=== PATIENT | male | born 1970 | race Caucasian/White ===

== ENCOUNTER 2019-09-07 09:28 | Emergency (ER) | payer SELFPAY ==
[2019-09-07 09:32] VITALS: BMI 29.5
[2019-09-07 09:42] VITALS: BP 120/84; PULSE 90; RESP 16; TEMP 36.4; O2SAT 94
--- NOTE | 2019-09-07 09:56 | US_ITS ---
WS: [id number] INDICATION: Left elbow swelling TECHNIQUE: Ultrasound soft tissue FINDINGS: Ultrasound left elbow. Small amount of edema is visualized along the dorsal elbow. Small am ount of fluid. No evidence of drainable abscess or fluid collection. US/US soft tissue/extremity 14187 IMPRESSION: Dorsal elbow edema can be seen with cellulitis, trauma, or olecrano n bursitis. Consider olecranon bursitis in the absence of infection or trauma. Recommend clinical correlation. No drainable fluid collections.
--- NOTE | 2019-09-07 09:56 | ED_ITS ---
HPI - Extremity Problem General: Chief complaint: General Medical Stated complaint: KNOT ON L ARM Time Seen by Provider: 09/07/19 09:30 Source: patient Mode of arrival: ambulatory Limitations: no limitations History of Present Illness: HPI Narrative: Patient is a 49-year-old male presents to ED today along with his for complaints of left elbow pain. According to patient approximately 2 weeks ago they began noticing the left arm was red and swollen. They sought evaluation at [facility] where they were diagnosed with cellulitis. He was given IV antibiotics while in the emergency department and discharged home on amoxicillin. Patient states all of the redness and swelling has subsided apart from swelling localized to the dorsal elbow. Patient is not running fevers or chills. MD Complaint: joint swelling and joint pain Onset (ago): day(s) Pain Consistency: constant Location: left, upper extremity and elbow Radiation: none Relieving factors: nothing Exacerbating factors: range of motion Associated symptoms: Reports no associated symptoms; Deny chest pain, fever(s) or rash Review of Systems Const: Denies: fever(s), chills, body aches or fatigue Card: Denies: chest pain Resp: Denies: dyspnea GI: Denies: abdominal pain, nausea or vomiting Musc: Reports: joint pain and joint swelling; Denies: neck pain, back pain, extremity pain, extremity swelling, joint redness, joint warmth or limited range of motion Skin/Breast: Denies: rash Neuro: Denies: headache(s), numbness in extremities, weakness in extremities or sensory changes [facility] ED PFSH: Social History (Updated 09/07/19 @ 09:44 by Selam Boudreaux RN) Smoking and tobacco status: current every day smoker cigarettes Packs smoked per day: 1 Physical Exam Const: COMMON NORMALS: no acute distress, average body habitus, patient oriented x3, no limitations, healthy appearing, alert and well nourished Resp: COMMON NORMALS: normal respiratory effort Cardio: COMMON NORMALS: regular rate and regular rhythm RATE: regular rate RHYTHM: regular rhythm Extremity: NARRATIVE EXTREMITY EXAM: pt appears to have an olecranon bursitis to L elbow; area is firm to touch; no erythema/warmth; joint appears stiff but he maintains full ROM; pain is not out of proportion to exam Neuro: COMMON NORMALS: patient oriented x3 SENSORIUM/ORIENTATION: Yes alert Skin: COMMON NORMALS: no rashes or lesions noted GENERAL SKIN EXAM: no rashes or lesions noted Course Vital Signs: Vital signs: Vital Signs Temperature 97.6 F 09/07/19 09:42 Pulse Rate 73 09/07/19 11:39 Respiratory Rate 18 09/07/19 11:39 Blood Pressure 135/82 09/07/19 11:39 Pulse Oximetry 98 09/07/19 11:39 MDM - Extremity (Nontraumatic) MDM Narrative: Medical decision making narrative: Patient clinically with an olecranon bursitis. Ultrasound does not show any drainable fluid collection. Patient maintains full range of motion of the elbow joint. He is not febrile or tachycardic. His labs reveal no leukocytosis and no elevation to his inflammatory markers. Slightly concerned regarding his history as he states he did have cellulitis from the elbow extending distally. This has improved after his course of amoxicillin but states he still has swelling to the elbow joint. There is absolutely no concern for septic arthritis at this point however septic bursitis is still a slight possibility. We will go ahead and place patient on Bactrim to cover for this and case management will work on getting him set up with orthopedic follow-up. Strict return to ED precautions given. Lab Data: Labs: Lab Results 09/07/19 09/07/19 09/07/19 Range/Units 10:10 10:10 10:10 WBC 6.0 (4.0-10.0) 10^3/ uL RBC 4.64 (4.1-5.3) 10^6/u L Hgb 14.6 (11.7-16.6) g/dL Hct 43.1 (42.0-52.0) % MCV 92.9 (80-94) fL MCH 31.5 (28.0-34.0) pg MCHC 33.9 (30.0-36.0) g/dL RDW 12.6 (12.1-15.1) % Plt Count 374 (130-400) 10^3/c mm MPV 8.6 (7.4-10.4) fL Neut % (Auto) 55.0 % Lymph % (Auto) 29.5 % [place] % (Auto) 7.7 % Eos % (Auto) 5.0 % Baso % (Auto) 1.3 % Neut # (Auto) 3.3 (1.8-7.7) 10^3/u L Lymph # (Auto) 1.8 (0.8-4.8) 10^3/u L [place] # (Auto) 0.5 (0.2-0.9) 10^3/u L Eos # (Auto) 0.3 (0.0-0.8) 10^3/u L Baso # (Auto) 0.1 (0.0-0.1) 10^3/u L Nucleated RBC % (a uto) 0 % Nucleated RBCs # 0.0 /100WBC ESR 9 (0-10) mm/hr Sodium 141 (136-145) mmol/L Potassium 3.9 (3.5-5.1) mmol/L Chloride 104 (98-107) mmol/L Carbon Dioxide 26 (22-29) mmol/L Anion Gap 14.9 (5-19) BUN 17 (6-20) mg/dL Creatinine 0.7 (0.7-1.2) mg/dL GFR Calculation 120.9 (90-130) mL/min Glucose 135 H (65-115) mg/dL Calculated Osmolal ity 290 (285-295) mOsm/k g Calcium 9.8 (8.5-10.5) mg/dL Total Bilirubin 0.2 (0.15-1.2) mg/dL AST 13 (0-40) U/L ALT 15 (0-41) U/L Alkaline Phosphata se 59 (40-130) IU/L C-Reactive Protein 2.9 (0.0-4.9) mg/L Total Protein 7.2 (6.6-8.7) g/dL Albumin 4.6 (3.5-5.2) g/dL Globulin 2.6 (1.3-4.6) g/dL Imaging Data^: L elbow XR: Radiologist's impression: [address] [address] XRay Report Signed Patient: Alden Velez Unit #: [id number] : 1970 Age/Sex: 49 / M ADM Date: 09/07/19 Loc: ER Room/Bed: Attending Dr: Ordering Provider/Ordering MD: Jackie Khalil Date of Service: 09/07/19 Procedure(s): XR elbow LT min 3V* 52962 Accession Number(s): [id number] Report Number: [id number] PROCEDURE INFORMATION: Exam: XR Left Elbow Exam date and time: 09/07/2019 10:11 AM Age: 49 years old Clinical indication: Patient HX: Recently treated for cellulitis left elbow. Some swelling still remains dorsal elbow; Additional info: Pain/swelling TECHNIQUE: Imaging protocol: XR Left elbow. Views: Frontal, lateral, and oblique views. COMPARISON: No relevant prior studies available. FINDINGS: Bones/joints: Possible olecranon bursal effusion. No destructive bony process identified. No acute bony abnormality identified. Soft tissues: Posterior soft tissue swelling. No radiopaque or radiolucent foreign body identified. XR/XR elbow LT min 3V* [id number] IMPRESSION: 1. Posterior soft tissue swelling. Cellulitis not excluded. Clinical correlation is recommended. 2. No radiopaque or radiolucent foreign body identified. 3. Possible olecranon bursal effusion. 4. No acute bony abnormality identified. Dictated By: Willy Smiley MD Signed By: Willy Smiley MD Signed Date/Time: 09/07/19 1055 DD/ 1054 US L elbow/extremity : Radiologist's impression: [address] [address] Ultrasound Report Signed Patient: Alden Velez Unit #: [id number] : 1970 Age/Sex: 49 / M ADM Date: 09/07/19 Loc: ER Room/Bed: Attending Dr: Ordering Provider/Ordering MD: Jackie Khalil Date of Service: 09/07/19 Procedure(s): US soft tissue/extremity 34066 Accession Number(s): [id number] Report Number: [id number] WS: [id number] INDICATION: Left elbow swelling TECHNIQUE: Ultrasound soft tissue FINDINGS: Ultrasound left elbow. Small amount of edema is visualized along the dorsal elbow. Small amount of fluid. No evidence of drainable abscess or fluid collection. US/US soft tissue/extremity 19305 IMPRESSION: Dorsal elbow edema can be seen with cellulitis, trauma, or olecranon bursitis. Consider olecranon bursitis in the absence of infection or trauma. Recommend clinical correlation. No drainable fluid collections. Dictated By: Reji Frias MD Signed By: Reji Frias MD Signed Date/Time: 09/07/191054 DD/ 51 Discharge Plan Discharge Patient Disposition: Home, Self-Care Clinical Impression: Olecranon bursitis of left elbow Condition: Stable Prescriptions: New Bactrim DS 800-160 mg tablet 1 tab PO BID 7 Days Qty: 14 RF: 0 No Action amoxicillin 250 mg Capsule 500 mg PO BID RF: 0 Discharge Orders: Discharge Order (Routine); Ordered 09/07/19 Ordered By: Jackie Khalil Referrals: Shyanne Mckeon DO [Primary Care Provider] - Activity Restrictions/Additional Instructions: As discussed case management should contact you to set you up with orthopedic follow-up. Please return to the emergency department for redness, swelling, increased pain, fevers to the elbow joint or arm. Coding Level of Care Code ED Light Armored Reconnaissance Officer for Chg Fwd Exam Expanded Problem Focused
[2019-09-07 10:17] LABS: Basophils # 0.1 10^3/uL (0.0-0.1); Basophils % 1.3 %; Eosinophils # 0.3 10^3/uL (0.0-0.8); Hematocrit 43.1 % (42.0-52.0); Hemoglobin 14.6 g/dL (11.7-16.6); Lymphocytes # 1.8 10^3/uL (0.8-4.8); Lymphocytes % 29.5 %; Mean Corpuscular HGB Conc 33.9 g/dL (30.0-36.0); Mean Corpuscular Hemoglobin 31.5 pg (28.0-34.0); Mean Corpuscular Volume 92.9 fL (80-94); Mean Platelet Volume 8.6 fL (7.4-10.4); Monocytes # 0.5 10^3/uL (0.2-0.9); Monocytes % 7.7 %; Neutrophils # 3.3 10^3/uL (1.8-7.7); Nucleated Red Blood Cells % 0 %; Platelet Count 374 10^3/cmm (130-400); Red Blood Count 4.64 10^6/uL (4.1-5.3); Red Cell Distribution Width 12.6 % (12.1-15.1)
[2019-09-07 10:35] LABS: Alanine Aminotransferase 15 U/L (0-41); Albumin Level 4.6 g/dL (3.5-5.2); Alkaline Phosphatase 59 IU/L (40-130); Anion Gap 14.9 (5-19); Aspartate Amino Transferase 13 U/L (0-40); Blood Urea Nitrogen 17 mg/dL (6-20); Calcium 9.8 mg/dL (8.5-10.5); Carbon Dioxide 26 mmol/L (22-29); Chloride 104 mmol/L (98-107); Globulin 2.6 g/dL (1.3-4.6); Glomerular Filtration Rate 120.9 mL/min (90-130); Glucose 135 mg/dL (65-115); Osmolality Calculated 290 mOsm/kg (285-295); Potassium 3.9 mmol/L (3.5-5.1); Sodium 141 mmol/L (136-145); Total Bilirubin 0.2 mg/dL (0.15-1.2); Total Protein 7.2 g/dL (6.6-8.7)
--- NOTE | 2019-09-07 11:04 | PC.NURSE ---
pt. stated he wanted somthing to drink because he needed to drink, I explained i could not do that right now, he stated he was going to leave. I informed the DrTameka and the Dr. ordered to let him leave if he wants to leave the Pt. singed the AMA form and leafed the ER
[2019-09-07 11:09] LABS: C Reactive Protein 2.9 mg/L (0.0-4.9)
[2019-09-07 11:24] LABS: Erythrocyte Sedimentation Rate 9 mm/hr (0-10)
[2019-09-07] MEDS: ketorolac 60 mg/2 mL INJ IM (11:34)
[2019-09-07 11:39] VITALS: BP 135/82; PULSE 73; RESP 18; O2SAT 98
--- NOTE | 2019-09-07 12:24 | DCPLANNER ---
manager commodities was asked to schedule a follow up appointment for patient with ortho. manager commodities called the ortho clinic, spoke with Vane, gave clinic patients information. manager commodities was told that patients information would be printed and reviewed. Clinic will call case reviewer and patient with appointment information.
--- NOTE | 2019-09-12 09:20 | DCPLANNER ---
Patient has a follow up appointment scheduled for Thursday, September 12, 2019 at 1:[address] Boateng. Clinic will call patient with appointment information.
--- NOTE | 2019-09-21 15:03 | DCPLANNER ---
Patient did not attend appointment scheduled for 09.12.19 with ortho.
== END 2019-09-07 11:40 | disposition home or self-care (01) ==
PROVIDERS: Emergency Provider Physician Assistant; Family Provider Family Medicine; PCP Family Medicine
DX: M70.22 Olecranon bursitis, left elbow (principal); F17.210 Nicotine dependence, cigarettes, uncomplicated
CPT/HCPCS: 12345; 36415; 73080; 76882; 80053; 85025; 85651; 86140; 96372; 99281; 99283; J1885

== ENCOUNTER 2020-02-28 02:19 | Emergency (ER) | payer SELFPAY ==
[2020-02-28 02:24] VITALS: BP 146/106; PULSE 90; RESP 18; TEMP 36.4; O2SAT 98; BMI 29.5
--- NOTE | 2020-02-28 02:26 | XRR_ITS ---
PROCEDURE INFORMATION: Exam: XR Chest, 1 View Exam date and time: 02/28/2020 2:26 AM Age: 49 years old Clinical indication: Shortness of breath; Left-sided chest pain; Additional info: SOB TECHNIQUE: Imaging protocol: XR of the chest Views: Frontal portable upright view of the chest. COMPARISON: No relevant prior studies available. FINDINGS: Lungs: The lungs are clear bilaterally. The pulmonary vasculature is normal. Pleural space: No pleural effusion. No pneumothorax. Heart/Mediastinum: The heart is normal in size and contour. Bones/joints: Mild thoracic spine vertebral body marginal osteophytes. Healed left clavicular fracture. Healed left rib fractures. Posterior left humeral head articular marginal osteophyte. XR/XR chest 1V portable [id number] IMPRESSION: No acute cardiopulmonary abnormality identified.
--- NOTE | 2020-02-28 02:26 | ECG_ITS ---
[facility] Test Date: 2020-02-28 Pat Name: Alden Velez Department: Room: Gender: Male Sample Cutter: : 1970 Requested By: Latoya Long Order Number: [id number] Khurram MD: Triston Luz M.D. Measurements Intervals [place] Rate: 95 P: 79 [place]: 173 QRS: 49 QRSD: 97 T: 74 QT: 345 QTc: 434 Interpretive Statements SINUS RHYTHM INCOMPLETE RIGHT BUNDLE BRANCH BLOCK [90+ ms QRS DURATION, TERMINAL R IN V1/V2, 40+ ms S IN I/aVL/V4/V5/V6] No previous ECG available for comparison Electronically Signed On 02-28-2020 21:24:24 BIOLOGY TUTOR by Triston Luz M.D. [id number]
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
[2020-02-28 02:41] LABS: Basophils # 0.1 10^3/uL (0.0-0.1); Basophils % 1.4 %; Eosinophils # 0.3 10^3/uL (0.0-0.8); Eosinophils % 3.8 %; Hematocrit 45.5 % (42.0-52.0); Hemoglobin 15.3 g/dL (11.7-16.6); Lymphocytes # 2.2 10^3/uL (0.8-4.8); Mean Corpuscular HGB Conc 33.6 g/dL (30.0-36.0); Mean Corpuscular Hemoglobin 31.2 pg (28.0-34.0); Mean Corpuscular Volume 92.9 fL (80-94); Monocytes # 0.8 10^3/uL (0.2-0.9); Monocytes % 9.6 %; Neutrophils # 4.38 10^3/uL (1.8-7.7); Neutrophils % 54.8 %; Nucleated Red Blood Cells % 0 %; Platelet Count 311 10^3/cmm (130-400); Red Cell Distribution Width 11.9 % (12.1-15.1)
[2020-02-28] MEDS: morphine 4 mg/mL SDV 1 mL IVP (02:43)
[2020-02-28 03:09] LABS: D Dimer 0.28 ug/mIFEU (0-0.59)
[2020-02-28 03:11] LABS: Alanine Aminotransferase 21 U/L (0-41); Albumin Level 4.4 g/dL (3.5-5.2); Alkaline Phosphatase 75 IU/L (40-130); Anion Gap 14.4 (5-19); Aspartate Amino Transferase 15 U/L (0-40); Blood Urea Nitrogen 14 mg/dL (6-20); Calcium 9.2 mg/dL (8.5-10.5); Carbon Dioxide 27 mmol/L (22-29); Chloride 104 mmol/L (98-107); Globulin 2.3 g/dL (1.3-4.6); Glomerular Filtration Rate 59.2 mL/min (90-130); Glucose 134 mg/dL (65-115); Osmolality Calculated 294 mOsm/kg (285-295); Potassium 4.4 mmol/L (3.5-5.1); Sodium 141 mmol/L (136-145); Total Bilirubin 0.2 mg/dL (0.15-1.2); Total Protein 6.7 g/dL (6.6-8.7)
[2020-02-28 03:13] LABS: Troponin(5th) Baseline 7 ng/L (0-15)
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
[2020-02-28] MEDS: metoclopramide 5 mg/mL SDV 2 mL 10 MG IVP (04:38)
[2020-02-28] MEDS: diphenhydrAMINE 50 mg/mL SDV 1mL IVP (04:38)
[2020-02-28 04:53] LABS: Troponin 5 2HR 6.98 ng/L (0-15)
[2020-02-28 04:55] LABS: Troponin 5 2HR Delta -0.02 ABS# (0-10)
[2020-02-28 04:57] VITALS: BP 145/76; PULSE 89; RESP 16; O2SAT 99
[2020-02-28 05:28] VITALS: BP 132/79; PULSE 89; RESP 16; O2SAT 98
== END 2020-02-28 05:29 | disposition home or self-care (01) ==
PROVIDERS: Emergency Provider Emergency Medicine; PCP Family Medicine
DX: R07.89 Other chest pain (principal); R51.9 Headache, unspecified; F17.210 Nicotine dependence, cigarettes, uncomplicated
CPT/HCPCS: 12345; 70450; 71045; 80053; 84484; 85025; 85378; 93005; 96374; 96375; 99282; 99284; J1200; J2270; J2765

== ENCOUNTER 2021-10-11 07:24 | Emergency (ER) | payer SELFPAY ==
--- NOTE | 2021-10-11 07:33 | W.ED.SKABFB ---
HPI - Skin/Abscess/Foreign Bdy General: Chief complaint: Skin/Abscess/Foreign Body Stated complaint: Open wounds upper extrimidies Time Seen by Provider: 10/11/21 07:25 Source: patient Mode of arrival: ambulatory Limitations: no limitations History of Present Illness: Patient is a 51-year-old male who presents to ED today along with his significant other for concerns of possible staph/MRSA lesions. Patient states approximately 2 weeks ago he was seen at [facility] for concerns of an abscess to his right thumb. Patient does have pictures of this on his phone and he did have what appeared to be an abscess to the palmar pad of his right thumb. He states this was drained but no culture was obtained. He was placed on 10 days of doxycycline and states the abscess healed. Patient and significant other states since then other areas have began popping up and are concerned about further staph lesions. Patient now complaining of lesions to his L elbow, toe, right middle finger, and palm of hand. MD complaint: abscess/boil and lesion Onset (ago): day(s) Tetanus up to date: yes Location: generalized Context: none Associated symptoms: Reports no associated symptoms; Deny chills or fever(s) Review of Systems Const: Denies: fever(s), chills, body aches, fatigue or malaise Card: Denies: chest pain Resp: Denies: dyspnea GI: Denies: abdominal pain Musc: Reports: extremity pain and extremity swelling; Denies: neck pain, back pain, joint pain, joint swelling or joint redness Skin/Breast: Reports: new lesions Neuro: Denies: headache(s), numbness in extremities, weakness in extremities or sensory changes FOR[facility]LY [facility], [facility] ED PFSH: Social History Smoking and tobacco status: current every day smoker cigarettes Packs smoked per day: 1 Physical Exam Const: COMMON NORMALS: no acute distress, patient oriented x3, no limitations and alert GENERAL APPEARANCE: cooperative ORIENTATION/CONSCIOUSNESS: Yes awake, Yes oriented to person, Yes oriented to place and Yes oriented to time OTHER: noted to by hypertensive-he states he has known hypertension and BP today is actually low for me HENMT: COMMON NORMALS: normocephalic and atraumatic HEAD & SCALP: normal to inspection, normocephalic and atraumatic Resp: COMMON NORMALS: normal respiratory effort and clear to auscultation bilaterally AUSCULTATION: clear to auscultation bilaterally Cardio: COMMON NORMALS: regular rhythm RATE: tachycardic RHYTHM: regular rhythm Extremity: COMMON NORMALS: capillary refill normal GENERAL: Yes normal exam except as noted RIGHT UPPER EXTREMITY: Yes hand & digits LEFT UPPER EXTREMITY: Yes elbow joint RIGHT LOWER EXTREMITY: Yes foot & digits OTHER: pt has callus like formation to R palmar pad of his thumb from I&D via needle puncture that was performed about 2 weeks ago; there is no redness or swelling to the digit and no residual fluctuance or drainage; area is still slightly tender to touch pt has a unroofed blister like lesion to the medial aspect of his R middle finger that the significant other states popped and drained on its own ; no redness/swelling/active infection he has a callus like nodule to the R mid-palmar pad of hand without redness; minimal swelling, area is tender to touch; no puncture like wound and he denies any puncture injuries *R hand/digits showing no uniform swelling, severe pain with flexion/extension, localized flexor sheath tenderness or other concerns for infectious tenosynovitis at this time pt has similar like unroofed blister (about 1 inch) like lesion to his L elbow with a small area central clearing (1mm) with scant yellow drainage on his bandage; there is no active drainage from lesion; there is no surrounding swelling, cellulitis, or drainable abscess he has a well healed ( old abscess ) to the top of one of his R toes Neuro: HASMUKH COMA SCALE: document GCS findings [place] coma scale eye opening: Spontaneous Hasmukh coma scale verbal response: Orientated Hasmukh coma scale motor response: Obey commands [place] coma scale total score: 15 COMMON NORMALS: patient oriented x3, moves all extremities, no focal motor deficits, no sensory deficits noted and gait normal SENSORIUM/ORIENTATION: Yes alert, Yes oriented to person, Yes oriented to place and Yes oriented to time Skin: NARRATIVE SKIN EXAM: see extremity assessments above Course Vital Signs: Vital signs: Vital Signs Temperature 98.3 F 10/11/21 07:38 Pulse Rate 110 H 10/11/21 08:16 Respiratory Rate 18 10/11/21 07:38 Blood Pressure 164/120 10/11/21 08:16 Pulse Oximetry 98 10/11/21 08:16 Oxygen Delivery Md thod 10/11/21 07:38 MDM - Skin/Abscess/Foreign Bdy Medicial Decision Making Patient here with multiple skin lesions that he states popped up following needle aspiration/I&D of a R thumb abscess that he was told was staph although no culture was performed of fluid. There are no lesions today that require I&D. He state the abscess did heal after being placed on doxycycline so it is reasonable to believe that this was indeed staph and these newer lesions could have been spread from that. 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 He is hypertensive here but states this is chronic. We did discuss strict return to ED follow up in regards to lesions on the hand and elbow if they continue to enlarge or worsen in any way. He verbalized understanding of this. Discharge Plan Discharge Patient Disposition: Home Clinical Impression: Multiple wounds of skin Condition: Stable Prescriptions: New doxycycline monohydrate 100 mg capsule 100 mg PO Q12H 10 Days Qty: 20 0RF No Action Naprosyn 500 mg tablet 500 mg PO BID PRN (Reason: pain) Qty: 20 0RF amoxicillin 250 mg Capsule 500 mg PO BID Discharge Orders: Discharge ED (Routine); Ordered 10/11/21 Ordered By: Jackie Khalil Referrals: Shyanne Mckeon DO [Primary Care Provider] - Coding Level of Care Code ED Entry Level Mechanical Engineer for Chg Fwd Exam Detailed
[2021-10-11 07:38] VITALS: BP 159/112; PULSE 110; RESP 18; TEMP 36.8; O2SAT 99; BMI 32.5
[2021-10-11 08:16] VITALS: BP 164/120; PULSE 110; O2SAT 98
[2021-10-11 08:24] VITALS: BP 164/120; PULSE 107; O2SAT 97
== END 2021-10-11 08:24 | disposition home or self-care (01) ==
PROVIDERS: Emergency Provider Physician Assistant; PCP Family Medicine
DX: L98.8 Other specified disorders of the skin and subcutaneous tissue (principal); F17.210 Nicotine dependence, cigarettes, uncomplicated
CPT/HCPCS: 99283

== ENCOUNTER 2022-03-14 10:02 | Emergency (ER) | payer SELFPAY ==
--- NOTE | 2022-03-14 10:05 | ECG_ITS ---
[facility] Test Date: 2022-03-14 Pat Name: Alden Velez Department: Room: Gender: Male Kiln Tester: : 1970 Requested By: Magnus Mandel Order Number: [id number] Khurram MD: Triston Luz M.D. Measurements Intervals Maybeury Rate: 117 P: 84 AK: 166 QRS: 48 QRSD: 99 T: 87 QT: 349 QTc: 488 Interpretive Statements SINUS TACHYCARDIA RIGHT ATRIAL ENLARGEMENT [0.3mV P-WAVE] POSSIBLE LEFT ATRIAL ENLARGEMENT [-0.1mV P-WAVE IN V1/V2] INCOMPLETE RIGHT BUNDLE BRANCH BLOCK [90+ ms QRS DURATION, TERMINAL R IN V1/V2, 40+ ms S IN I/aVL/V4/V5/V6] Compared to ECG 02/28/2020 02:25:04 Atrial abnormality now present Sinus rhythm no longer present Electronically Signed On 03-15-2022 19:51:21 FURNACE FEEDER by Triston Luz M.D. [id number]
--- NOTE | 2022-03-14 10:05 | XRR_ITS ---
PROCEDURE INFORMATION: Exam: XR Chest Exam date and time: 03/14/2022 10:32 AM Age: 51 years old Clinical indication: Cough and dyspnea; Additional info: Dyspnea/cough TECHNIQUE: Imaging protocol: Radiologic exam of the chest. Views: 1 view. COMPARISON: CR XR chest 1V portable [id number] 02/28/2020 2:23 AM FINDINGS: Lungs: The lung parenchyma is clear. Pleural spaces: No pneumothorax. No pleural effusion. Heart/Mediastinum: The cardiomediastinal silhouette is within normal limits. Bones/joints: Unremarkable. XR/XR chest 1V portable [id number] IMPRESSION: No acute cardiopulmonary abnormality.
--- NOTE | 2022-03-14 10:16 | W.ED.ABDPA2 ---
HPI - Abdominal Pain General: Chief Complaint: Fever Stated Complaint: ABD PAIN; FEVER; COUGH Time Seen by Provider: 03/14/22 10:04 Source: patient Mode of arrival: ambulatory History of Present Illness: 51-year-old male presents emergency room complaining of abdominal pain with nausea and vomiting. Said symptoms for the last couple days denies any medication on hematemesis coffee-ground emesis no dysuria urgency or frequency or hematuria. He has been short of breath with that as well he has had a nonproductive cough and low-grade fever. For his discomfort to the periumbilical area. Has been having bowel movements regularly. MD elicited complaint: abdominal pain Onset (ago): day(s) Pain Consistency: constant Location: Periumbilical Severity: moderate Quality: cramping Radiation: none Exacerbating factors: nothing Relieving factors: nothing Associated Symptoms: Reports bloating, GI cramping, dyspepsia, fever(s), nausea, poor appetite and vomiting; Denies belching, change in bowel habits, change in stool character, chills, coffee ground emesis, constipation, diarrhea, dysuria, excessive flatus, heartburn, hematochezia, hematuria, hematemesis, fecal incontinence, loose stools, melena and syncope Review of Systems Const: Reports: fever(s); Denies: chills, fatigue or malaise ENMT: Denies: throat pain, ear or mastoid pain, nasal discharge or nasal congestion Card: Denies: chest pain, palpitations, irregular heart rhythm or syncope Resp: Denies: dyspnea, productive cough or non-productive cough GI: Reports: abdominal pain, nausea, vomiting, bloating and GI cramping; Denies: hematemesis, coffee ground emesis, heartburn, diarrhea, constipation, belching, excessive flatus, fecal incontinence, change in bowel habits, change in stool character, hematochezia or melena : Denies: flank pain, difficulty urinating, dysuria, urinary frequency, urinary urgency or hematuria Skin/Breast: Denies: rash or pruritus PFSH ED PFSH: Medical History (Updated 03/14/22 @ 12:07 by Magnus Melendez DO) Osteoarthritis of knees, bilateral Social History Smoking and tobacco status: current every day smoker cigarettes Packs smoked per day: 1 Physical Exam Const: GENERAL APPEARANCE: cooperative and comfortable ORIENTATION/CONSCIOUSNESS: Yes awake, Yes oriented to person, Yes oriented to place and Yes oriented to time HENMT: COMMON NORMALS: normocephalic, atraumatic and hearing grossly normal bilaterally HEAD & SCALP: normocephalic and atraumatic Resp: COMMON NORMALS: normal respiratory effort, No retractions, No use of accessory muscles and clear to auscultation bilaterally AUSCULTATION: clear to auscultation bilaterally Cardio: COMMON NORMALS: regular rate, regular rhythm and No murmurs present (Cardio) RATE: regular rate RHYTHM: regular rhythm GI: COMMON NORMALS: Soft to palpation and No hepatosplenomegaly present AUSCULTATION: Yes normoactive bowel sounds PALPATION: Yes Soft to palpation, No Tenderness to palpation present (GI), No Guarding due to palpation present (GI) and Yes No hepatosplenomegaly present Extremity: COMMON NORMALS: normal to inspection, capillary refill normal, no clubbing, cyanosis or edema, no calf tenderness and no pedal edema Neuro: SENSORIUM/ORIENTATION: Yes oriented to person, Yes oriented to place and Yes oriented to time Skin: COMMON NORMALS: no rashes or lesions noted GENERAL SKIN EXAM: no rashes or lesions noted Course Vital Signs: Vital signs: Vital Signs Temperature 98.6 F 03/14/22 10:23 Pulse Rate 106 H 03/14/22 12:31 Respiratory Rate 18 03/14/22 12:31 Blood Pressure 133/88 03/14/22 12:31 Pulse Oximetry 93 03/14/22 12:31 Oxygen Delivery Me thod 03/14/22 11:26 MDM - Abdominal Pain Medical Decision Making Patient actually developed pretty significant cough while he was here. No lymphocytosis. His was in the room when I went discussed the results of the lab work with the patient and she noted that they had been exposed to somebody had influenza A. His vital signs are stable he is mildly tachycardic and is coughing. Suspect he will indeed have influenza A promethazine to use as needed was not swabbed him discharged home we will contact with results when they become available. Medical Records I reviewed the patient's medical records. Lab Data I reviewed the patient's lab results. 03/14/22 10:20 03/14/22 10:20 Labs/Radiology: Radiology Impressions Chest X-Ray 03/14/22 10:05 IMPRESSION: No acute cardiopulmonary abnormality. Abdomen/Pelvis CT 03/14/22 10:47 IMPRESSION: No acute abdominopelvic abnormality identified. COMMENTS: Consistent with the [place] [employer]'s Incidental Findings Committee white paper (J Am Ambrocio Radiol 2018): Any incidental renal lesion less than 1 cm or classified as too small to characterize, or any incidental cystic renal lesion characterized as simple-appearing, is likely benign. No follow-up imaging is recommended for these lesions per consensus recommendations based on imaging criteria. Laboratory Results WBC 6.6 10^3/uL (4.0-10.0) 03/14/22 10:20 RBC 4.59 10^6/uL (4.1-5.3) 03/14/22 10:20 Hgb 13.9 g/dL (11.7-16.6) 03/14/22 10:20 Hct 41.2 % (42.0-52.0) L 03/14/22 10:20 MCV 89.8 fl (80-94) 03/14/22 10:20 MCH 30.3 pg (28.0-34.0) 03/14/22 10:20 MCHC 33.7 g/dL (30.0-36.0) 03/14/22 10:20 RDW 11.9 % (12.1-15.1) L 03/14/22 10:20 Plt Count 212 10^3/cmm (130-400) 03/14/22 10:20 MPV 9.1 fL (7.4-10.4) 03/14/22 10:20 Neut % (Auto) 60.8 % 03/14/22 10:20 Lymph % (Auto) 25.5 % 03/14/22 10:20 Lamb % (Auto) 12.9 % 03/14/22 10:20 Eos % (Auto) 0.2 % 03/14/22 10:20 Baso % (Auto) 0.3 % 03/14/22 10:20 Neut # (Auto) 4.00 10^3/uL (1.8-7.7) 03/14/22 10:20 Lymph # (Auto) 1.7 10^3/uL (0.8-4.8) 03/14/22 10:20 Lamb # (Auto) 0.9 10^3/uL (0.2-0.9) 03/14/22 10:20 Eos # (Auto) 0.0 10^3/uL (0.0-0.8) 03/14/22 10:20 Baso # (Auto) 0.0 10^3/uL (0.0-0.1) 03/14/22 10:20 Nucleated RBC % (auto) 0 % 03/14/22 10:20 Nucleated RBCs # 0.0 /100WBC 03/14/22 10:20 Sodium 133 mmol/L (136-145) L 03/14/22 10:20 Potassium 3.2 mmol/L (3.5-5.1) L 03/14/22 10:20 Chloride 95 mmol/L (98-107) L 03/14/22 10:20 Carbon Dioxide 27 mmol/L (22-29) 03/14/22 10:20 Anion Gap 14.2 (5-19) 03/14/22 10:20 BUN 8 mg/dL (6-20) 03/14/22 10:20 Creatinine 0.7 mg/dL (0.7-1.2) 03/14/22 10:20 GFR Calculation 119.9 mL/min (90-130) 03/14/22 10:20 Glucose 135 mg/dL (65-115) H 03/14/22 10:20 Calculated Osmolality 276 mOsm/kg (285-295) L 03/14/22 10:20 Calcium 9.2 mg/dL (8.5-10.5) 03/14/22 10:20 Total Bilirubin 0.3 mg/dL (0.15-1.2) 03/14/22 10:20 AST 25 U/L (0-40) 03/14/22 10:20 ALT 24 U/L (0-41) 03/14/22 10:20 Alkaline Phosphatase 67 U/L (40-130) 03/14/22 10:20 Total Protein 7.2 g/dL (6.6-8.7) 03/14/22 10:20 Albumin 4.0 g/dL (3.5-5.2) 03/14/22 10:20 Globulin 3.2 g/dL (1.3-4.6) 03/14/22 10:20 Lipase 31 U/L (13-60) 03/14/22 10:20 Urine Color Yellow (Yellow) 03/14/22 10:53 Urine Appearance Clear (CLEAR) 03/14/22 10:53 Urine pH 7 (5-7) 03/14/22 10:53 Ur Specific Fortine 1.015 (1.005-1.030) 03/14/22 10:53 Urine Protein Neg (Negative) 03/14/22 10:53 Urine Glucose (UA) Norm (Normal) 03/14/22 10:53 Urine Ketones Negative (Negative) 03/14/22 10:53 Urine Blood 3+ (Negative) H 03/14/22 10:53 Urine Nitrate Negative (Negative) 03/14/22 10:53 Urine Bilirubin Neg (Negative) 03/14/22 10:53 Urine Urobilinogen Norm mg/dL (Negative) 03/14/22 10:53 Ur Leukocyte Esterase Negative (Negative) 03/14/22 10:53 Urine RBC 5-10 /hpf (0-2) H 03/14/22 10:53 Urine WBC None /hpf (0-5) 03/14/22 10:53 Ur Squamous Epith Cells None /hpf (0-5) 03/14/22 10:53 Amorphous Sediment Not Reportable 03/14/22 10:53 Urine Bacteria Trace /hpf (NONE) 03/14/22 10:53 Urine Mucus Trace /hpf 03/14/22 10:53 Influenza Type A Ag negative (Negative) 03/14/22 12:12 Influenza Type B Ag negative (Negative) 03/14/22 12:12 Discharge Plan Discharge Patient Disposition: Home Clinical Impression: Viral URI with cough Condition: Stable Prescriptions: New promethazine 25 mg tablet 25 mg PO Q6H PRN (Reason: nausea and vomiting) Qty: 20 0RF Discharge Orders: Discharge ED (Routine); Ordered 03/14/22 Ordered By: Magnus Melendez Referrals: Shyanne Mckeon DO [Physician] - Discharge Diet: Clear Liquid Discharge Activity: Increase activity as tolerated Patient Instructions: Abdominal Pain (ED), Opioid Safety, Pain Management Activity Restrictions/Additional Instructions: You were seen today for abdominal pain generalized malaise and cough. Laboratory tests and CT of your abdomen were unremarkable with the exception of the few blood cells red blood cells in your urine however there was no sign of kidney stone. Your urine is being cultured since you denied any pain with urination, urine will be cultured. Flu and COVID swabs were done prior to your discharge and we will contact you with results when they are available. You can use promethazine as needed for nausea or vomiting. Recommend clear liquid diet for the next 1 to 2 days. Suspect he may have influenza A since she reported you were exposed to someone with influenza. Coding Level of Care Code ED Senior Cytogenetics Laboratory Director for Ernieg Fwd Exam Detailed
[2022-03-14 10:23] VITALS: BP 123/93; PULSE 102; RESP 20; TEMP 37; O2SAT 96
[2022-03-14 10:34] LABS: Basophils % 0.3 %; Eosinophils % 0.2 %; Hematocrit 41.2 % (42.0-52.0); Hemoglobin 13.9 g/dL (11.7-16.6); Lymphocytes # 1.7 10^3/uL (0.8-4.8); Lymphocytes % 25.5 %; Mean Corpuscular HGB Conc 33.7 g/dL (30.0-36.0); Mean Corpuscular Hemoglobin 30.3 pg (28.0-34.0); Mean Corpuscular Volume 89.8 fl (80-94); Mean Platelet Volume 9.1 fL (7.4-10.4); Monocytes # 0.9 10^3/uL (0.2-0.9); Monocytes % 12.9 %; Neutrophils % 60.8 %; Nucleated Red Blood Cells % 0 %; Platelet Count 212 10^3/cmm (130-400); Red Blood Count 4.59 10^6/uL (4.1-5.3); Red Cell Distribution Width 11.9 % (12.1-15.1); White Blood Count 6.6 10^3/uL (4.0-10.0)
[2022-03-14] MEDS: ondansetron 2 mg/ML SDV 2 mL 4 MG IVP (10:37)
[2022-03-14] MEDS: sodium chloride 0.9% 1,000 ML 999 ML IV (10:38)
--- NOTE | 2022-03-14 10:47 | CTR_ITS ---
PROCEDURE INFORMATION: Exam: CT Abdomen And Pelvis With Contrast Exam date and time: 03/14/2022 11:13 AM Age: 51 years old Clinical indication: Abdominal pain; Generalized; Prior surgery; Surgery type: Gb; Additional info: Abd pain TECHNIQUE: Imaging protocol: Computed tomography of the abdomen and pelvis with contrast. Radiation optimization: All CT scans at this facility use at least one of these dose optimization techniques: automated exposure control; mA and/or kV adjustment per patient size (includes targeted exams where dose is matched to clinical indication); or iterative reconstruction. Contrast material: OMNI 350; Contrast volume: 100 ml; Contrast route: INTRAVENOUS (IV); COMPARISON: CR (CHEST, ) 03/14/2022 10:32 AM RADIATION DOSE METRICS: Total DLP (mGy-cm): 860.63 FINDINGS: Liver: Area of hypoattenuation along the anterior margin of the liver adjacent to the falciform ligament consistent with focal fatty infiltration. The liver is normal in size and contour. Gallbladder and bile ducts: The gallbladder is surgically absent. Pancreas: The pancreas appears normal. Spleen: The spleen appears normal. Adrenal glands: The adrenals appear normal. Kidneys and ureters: Simple appearing, fluid density cysts noted in the kidneys bilaterally. The kidneys enhance symmetrically and empty into non-dilated ureters. Stomach and bowel: The stomach is unremarkable. The small bowel loops are not abnormally dilated. The large bowel loops are not abnormally dilated. Appendix: The appendix appears normal. Intraperitoneal space: No ascites or significant fluid collection. Vasculature: The aorta is nonaneurysmal. The IVC appears normal. Lymph nodes: There are no enlarged lymph nodes. Urinary bladder: The bladder is distended and demonstrates no focal contour abnormality. Reproductive: Unremarkable as visualized. Bones/joints: Bilateral pars defects at L5. Mild grade 1 anterolisthesis of L5 on S1 by approximately 4 mm. Soft tissues: Unremarkable. CT/CT abdomen pelvis w con* [id number] IMPRESSION: No acute abdominopelvic abnormality identified. COMMENTS: Consistent with the [place] [employer]'s Incidental Findings Committee white paper (J Am Ambrocio Radiol 2018): Any incidental renal lesion less than 1 cm or classified as too small to characterize, or any incidental cystic renal lesion characterized as simple-appearing, is likely benign. No follow-up imaging is recommended for these lesions per consensus recommendations based on imaging criteria.
[2022-03-14 11:07] LABS: Alanine Aminotransferase 24 U/L (0-41); Alkaline Phosphatase 67 U/L (40-130); Anion Gap 14.2 (5-19); Aspartate Amino Transferase 25 U/L (0-40); Blood Urea Nitrogen 8 mg/dL (6-20); Calcium 9.2 mg/dL (8.5-10.5); Carbon Dioxide 27 mmol/L (22-29); Chloride 95 mmol/L (98-107); Globulin 3.2 g/dL (1.3-4.6); Glomerular Filtration Rate 119.9 mL/min (90-130); Glucose 135 mg/dL (65-115); Lipase 31 U/L (13-60); Osmolality Calculated 276 mOsm/kg (285-295); Potassium 3.2 mmol/L (3.5-5.1); Sodium 133 mmol/L (136-145); Total Bilirubin 0.3 mg/dL (0.15-1.2); Total Protein 7.2 g/dL (6.6-8.7)
[2022-03-14 11:20] LABS: Add Urine Microscopic? YES; Bilirubin Urine Neg (Negative); Blood Urine 3+ (Negative); Glucose Urine UA Norm (Normal); Ketones Urine Negative (Negative); Leukocyte Esterase Urine Negative (Negative); Nitrate Urine Negative (Negative); Protein Urine Neg (Negative); Specific Gravity, Urine 1.015 (1.005-1.030); Urine Appearance Clear (CLEAR); Urine Color Yellow (Yellow); Urobilinogen Urine Norm (Negative); pH Urine 7 (5-7)
[2022-03-14 11:22] LABS: Bacteria Urine TRACE /hpf; Mucus Urine TRACE /hpf
[2022-03-14 11:23] LABS: Add Urine Culture? No
[2022-03-14 11:26] VITALS: BP 133/71; PULSE 57; RESP 18; O2SAT 99
[2022-03-14] MEDS: iohexol 350 mg/mL 500 mL Btl (per mL) IV (11:27)
--- NOTE | 2022-03-14 11:46 | PC.PHAR ---
pts family states the pt is suppose to be taking lisinopril 20mg daily states pt stop taking about 4 months ago-states the pt is not taking any rx or otc medications
[2022-03-14 12:31] VITALS: BP 133/88; PULSE 106; RESP 18; O2SAT 93
[2022-03-14 13:11] LABS: Influenza A by IFA negative (Negative); Influenza B by IFA negative (Negative)
[2022-03-14 14:45] LABS: Adenovirus Not Detected (NOT DETECT); Chlamydia Pneumoniae Not Detected (NOT DETECT); Coronavirus 229E,HKU1,NL63,OC4 Not Detected (NOT DETECT); Human Metapneumovirus Not Detected (NOT DETECT); Human Rhinovirus/Enterovirus Not Detected (NOT DETECT); Influenza A Detected (NOT DETECT); Influenza A H1 Not Detected (NOT DETECT); Influenza A H1-2009 Detected (NOT DETECT); Influenza A H3 Not Detected (NOT DETECT); Influenza B Not Detected (NOT DETECT); Mycoplasma Pneumoniae Not Detected (NOT DETECT); Parainfluenza Virus Type 1 Not Detected (NOT DETECT); Parainfluenza Virus Type 2 Not Detected (NOT DETECT); Parainfluenza Virus Type 3 Not Detected (NOT DETECT); Parainfluenza Virus Type 4 Not Detected (NOT DETECT); Respiratory Syncytial Virus A Not Detected (NOT DETECT); Respiratory Syncytial Virus B Not Detected (NOT DETECT); SARS-COV-2 Not Detected (NOT DETECT)
[2022-03-14 14:47] LABS: Influenza A Detected (NOT DETECT); Influenza A H1 Not Detected (NOT DETECT); Influenza A H1-2009 Detected (NOT DETECT); Influenza A H3 Not Detected (NOT DETECT); Influenza B Not Detected (NOT DETECT); Results from Genmark
== END 2022-03-14 12:33 | disposition home or self-care (01) ==
PROVIDERS: Emergency Provider Family Medicine
DX: J06.9 Acute upper respiratory infection, unspecified (principal); F17.210 Nicotine dependence, cigarettes, uncomplicated; Z20.822 Contact with and (suspected) exposure to COVID-19
CPT/HCPCS: 71045; 74177; 80053; 81001; 83690; 85025; 87631; 87635; 87804; 93005; 96374; 99285; J2405; J7030; Q9967

== ENCOUNTER 2023-10-23 20:56 | Emergency (ER) | payer BC, MEDICAID, SELFPAY ==
[2023-10-23 21:05] VITALS: BP 157/91; PULSE 108; RESP 17; TEMP 36.7; O2SAT 96; BMI 30.2
[2023-10-24 00:02] VITALS: BP 150/91; PULSE 104; RESP 18; O2SAT 96
--- NOTE | 2023-10-24 00:04 | CTR_ITS ---
PROCEDURE INFORMATION: Exam: CT Abdomen And Pelvis With Contrast Exam date and time: 10/24/2023 12:40 AM Age: 53 years old Clinical indication: Abdominal pain; Prior surgery; Surgery date: 6+ months; Surgery type: Gb; Patient HX: C/O left groin pain TECHNIQUE: Imaging protocol: Computed tomography of the abdomen and pelvis with contrast. Radiation optimization: All CT scans at this facility use at least one of these dose optimization techniques: automated exposure control; mA and/or kV adjustment per patient size (includes targeted exams where dose is matched to clinical indication); or iterative reconstruction. Contrast material: OMNI 350; Contrast volume: 100 ml; Contrast route: INTRAVENOUS (IV); COMPARISON: CT abdomen pelvis w con* [id number] 03/14/2022 11:13 AM RADIATION DOSE METRICS: Total DLP (mGy-cm): 750.43 FINDINGS: Liver: Normal. No mass. Gallbladder and biliary ducts: The gallbladder is absent. Pancreas: Normal. No ductal dilation. Spleen: Normal. No splenomegaly. Adrenal glands: Normal. No mass. Kidneys and ureters: There are multiple hypodense lesions throughout both kidneys which are incompletely assessed on this examination and while these may represent a combination of simple, proteinaceous and hemorrhagic cysts, a three-phase renal CT or renal MRI may be of benefit to more fully characterize these lesions. Stomach and bowel: Unremarkable. No obstruction. No mucosal thickening. Appendix: No evidence of appendicitis. Intraperitoneal space: Unremarkable. No free air. No significant fluid collection. Vasculature: Unremarkable. No abdominal aortic aneurysm. Lymph nodes: Unremarkable. No enlarged lymph nodes. Urinary bladder: Unremarkable as visualized. Reproductive: Unremarkable as visualized. Bones/joints: Bilateral pars defects at L5 with no listhesis. Soft tissues: Unremarkable. CT/CT abdomen pelvis w con* [id number] IMPRESSION: 1. No bowel obstruction or inflammatory process associated with the bowel. 2. No free air or significant free fluid in the abdomen or pelvis. 3. No evidence of appendicitis. 4. There are multiple hypodense lesions throughout both kidneys which are incompletely assessed on this examination and while these may represent a combination of simple, proteinaceous and hemorrhagic cysts, a three-phase renal CT or renal MRI may be of benefit to more fully characterize these lesions. COMMENTS: Consistent with the [employer] [employer]'s Incidental Findings Committee white paper (J Am Ambrocio Radiol 2018): Any incidental renal lesion less than 1 cm or classified as too small to characterize, or any incidental cystic renal lesion characterized as simple-appearing, is likely benign. No follow-up imaging is recommended for these lesions per consensus recommendations based on imaging criteria.
--- NOTE | 2023-10-24 00:17 | ED_ITS ---
HPI - Abdominal Pain 2 General: Chief Complaint: Abdominal Pain Stated Complaint: hernia L groin pain Time Seen by Provider: 10/23/23 23:33 History of Present Illness: 53-year-old male. He states that he has a history of left inguinal hernia, with pain for a month or so. It became acutely worse last night after a walk. He has been nauseated. No vomiting. No fever. Pain is in the left inguinal region. He radiates to his back. No prior surgeries. Related Data Previous Rx's Medication Instructions Recorded promethazine 25 mg tablet 25 mg PO Q6H PRN nausea and 03/14/22 vomiting #20 tabs tamsulosin 0.4 mg capsule (Flomax) 0.4 mg PO DAILY #30 caps 10/24/23 Allergies Allergy/AdvReac Type Severity Reaction Status Date / Time adhesive tape Allergy ALGY-Bliste Verified 10/23/23 21:08 r [facility] 2 PFSH: Medical History Osteoarthritis of knees, bilateral Social History Smoking and tobacco/nicotine status: current every day tobacco/nicotine user cigarettes Packs smoked per day: 1 Physical Exam 2 Const: COMMON NORMALS: no acute distress GENERAL APPEARANCE: cooperative; not ill appearing and not frail appearing HENMT: COMMON NORMALS: normocephalic, atraumatic and Normal external nose present HEAD & SCALP: normocephalic and atraumatic FACE & SINUS: normal facial exam and face symmetric NOSE: Normal external nose present Eye: COMMON NORMALS: Equal, round and reactive pupils present and EOMs intact bilaterally PUPIL: Yes Equal, round and reactive pupils present Neck/C-Spine: GENERAL: Yes trachea midline Chest: CHEST: Yes Symmetrical chest wall rise Resp: COMMON NORMALS: normal respiratory effort, No retractions, No use of accessory muscles and clear to auscultation bilaterally AUSCULTATION: clear to auscultation bilaterally Cardio: COMMON NORMALS: regular rate and regular rhythm RATE: regular rate RHYTHM: regular rhythm GI: COMMON NORMALS: Normal to inspection, nondistended, normoactive bowel sounds present : COMMON NORMALS: Yes no CVA tenderness BLADDER/KIDNEY EXAM: Yes no CVA tenderness MALE GROIN/PERINEUM EXAM: Yes hernia (No palpable hernia, there is tenderness to the left inguinal ring), No inguinal lymphadenopathy and No Genital lesions present PENIS: No Genital lesions present SCROTUM: Yes testes descended bilaterally, Yes Scrotal tenderness present, Yes scrotal swelling (Mild) Scrotal swelling laterality: left and No scrotal mass Back/Pelvis: COMMON NORMALS: no CVA tenderness Extremity: COMMON NORMALS: no pedal edema Neuro: HASMUKH COMA SCALE: document GCS findings Hasmukh coma scale eye opening: Spontaneous Hasmukh coma scale verbal response: Orientated Hasmukh coma scale motor response: Obey commands Hodgen coma scale total score: 15 S ENSORY EXAM: Yes extremities (intact) Psych: COMMON NORMALS: speech normal SPEECH: Yes normal speech Skin: COMMON NORMALS: no rashes or lesions noted GENERAL SKIN EXAM: no rashes or lesions noted Course 2 Vital Signs: Vital signs: Vital Signs Temperature 98.1 F 10/23/23 21:05 Pulse Rate 102 H 10/24/23 02:56 Respiratory Rate 18 10/24/23 02:56 Blood Pressure 156/106 10/24/23 02:56 Pulse Oximetry 97 10/24/23 02:56 Oxygen Delivery Me thod Room Air 10/24/23 02:02 MDM - Abdominal Pain Medical Decision Making Patient is hypertensive. Otherwise vitals are stable. CBC is normal. BMP is not remarkable. CRP is 3.7. Urinalysis shows negative leukocyte esterase. CT scan shows no bowel obstruction, no free air, no appendicitis, and most importantly no hernia. No palpable hernia on exam either. CT does show distended bladder. Patient only output 100 cc or so after CT scan. He was offered a catheter for bladder decompression, as this could be contributing to his symptoms. He declined. He will be placed on Flomax. As his symptoms are improved, he will be discharged. Amphetamine could be contributing to the bladder outlet obstruction to some degree. Lab Data 10/24/23 00:25 10/24/23 00:25 Labs/Radiology: Radiology Impressions Abdomen/Pelvis CT 10/24/23 00:04 IMPRESSION: 1. No bowel obstruction or inflammatory process associated with the bowel. 2. No free air or significant free fluid in the abdomen or pelvis. 3. No evidence of appendicitis. 4. There are multiple hypodense lesions throughout both kidneys which are incompletely assessed on this examination and while these may represent a combination of simple, proteinaceous and hemorrhagic cysts, a three-phase renal CT or renal MRI may be of benefit to more fully characterize these lesions. COMMENTS: Consistent with the [employer]'s Incidental Findings Committee white paper (J Am Ambrocio Radiol 2018): Any incidental renal lesion less than 1 cm or classified as too small to characterize, or any incidental cystic renal lesion characterized as simple-appearing, is likely benign. No follow-up imaging is recommended for these lesions per consensus recommendations based on imaging criteria. Laboratory Results WBC 8.79 10^3/uL (3.29-11.43) 10/24/23 00:25 RBC 4.43 10^6/uL (3.85-5.65) 10/24/23 00:25 Hgb 14.00 g/dL (11.27-16.99) 10/24/23 00:25 Hct 41.7 % (37-53) 10/24/23 00:25 MCV 94.1 fl (82-101) 10/24/23 00:25 MCH 31.6 pg (27-33) 10/24/23 00:25 MCHC 33.6 g/dL (30-55) 10/24/23 00:25 RDW 12.8 % (12.1-15.1) 10/24/23 00:25 Plt Count 313 10^3/cmm (157-399) 10/24/23 00:25 MPV 8.8 fL (7.4-10.4) 10/24/23 00:25 Neut % (Auto) 66.3 % 10/24/23 00:25 Lymph % (Auto) 19.6 % 10/24/23 00:25 [place] % (Auto) 8.2 % 10/24/23 00:25 Eos % (Auto) 4.1 % 10/24/23 00:25 Baso % (Auto) 0.8 % 10/24/23 00:25 Neut # (Auto) 5.83 10^3/uL (1.8-7.7) 10/24/23 00:25 Lymph # (Auto) 1.7 10^3/uL (0.8-4.8) 10/24/23 00:25 [place] # (Auto) 0.7 10^3/uL (0.2-0.9) 10/24/23 00:25 Eos # (Auto) 0.4 10^3/uL (0.0-0.8) 10/24/23 00:25 Baso # (Auto) 0.1 10^3/uL (0.0-0.1) 10/24/23 00:25 Nucleated RBC % (auto) 0 % 10/24/23 00:25 Nucleated RBCs # 0.0 /100WBC 10/24/23 00:25 Sodium 140 mmol/L (136-145) 10/24/23 00:25 Potassium 3.8 mmol/L (3.5-5.1) 10/24/23 00:25 Chloride 103 mmol/L (98-107) 10/24/23 00:25 Carbon Dioxide 27 mmol/L (22-29) 10/24/23 00:25 Anion Gap 13.8 (5-19) 10/24/23 00:25 BUN 13 mg/dL (6-20) 10/24/23 00:25 Creatinine 0.8 mg/dL (0.7-1.2) 10/24/23 00:25 GFR Calculation 101.9 mL/min (90-130) 10/24/23 00:25 Glucose 134 mg/dL (65-115) H 10/24/23 00:25 Calculated Osmolality 292 mOsm/kg (285-295) 10/24/23 00:25 Calcium 8.6 mg/dL (8.5-10.5) 10/24/23 00:25 Total Bilirubin 0.2 mg/dL (0.15-1.2) 10/24/23 00:25 AST 13 U/L (0-40) 10/24/23 00:25 ALT 14 U/L (0-41) 10/24/23 00:25 Alkaline Phosphatase 73 U/L (40-130) 10/24/23 00:25 C-Reactive Protein 3.4 mg/L (0.0-4.9) 10/24/23 00:25 Total Protein 6.3 g/dL (6.6-8.7) L 10/24/23 00:25 Albumin 3.7 g/dL (3.5-5.2) 10/24/23 00:25 Globulin 2.6 g/dL (1.3-4.6) 10/24/23 00:25 Lipase 17 U/L (13-60) 10/24/23 00:25 Urine Color Yellow (Yellow) 10/24/23 01:58 Urine Appearance Clear (CLEAR) 10/24/23 01:58 Urine pH 6.5 (5-7) 10/24/23 01:58 Ur Specific [place] 1.064 (1.005-1.030) H 10/24/23 01:58 Urine Protein Negative (Negative) 10/24/23 01:58 Urine Glucose (UA) Negative (Normal) 10/24/23 01:58 Urine Ketones Negative (Negative) 10/24/23 01:58 Urine Blood Non-haemolysed trace (Negative) 10/24/23 01:58 Urine Nitrate Negative (Negative) 10/24/23 01:58 Urine Bilirubin Negative (Negative) 10/24/23 01:58 Urine Urobilinogen 1.0 mg/dL (Negative) 10/24/23 01:58 Ur Leukocyte Esterase Negative (Negative) 10/24/23 01:58 Urine RBC 5-10 /hpf (0-2) H 10/24/23 01:58 Urine WBC 15-25 /hpf (0-5) H 10/24/23 01:58 Calcium Oxalate Crystal 5-10 /hpf H 10/24/23 01:58 Amorphous Sediment 1+ /hpf 10/24/23 01:58 Urine Bacteria 1+ /hpf (NONE) H 10/24/23 01:58 Urine Opiates Screen Positive ng/mL (Negative) H 10/24/23 01:58 Ur Barbiturates Screen Negative ng/mL (Negative) 10/24/23 01:58 Ur Phencyclidine Scrn Negative ng/mL (Negative) 10/24/23 01:58 Ur Amphetamines Screen Positive ng/mL (Negative) H 10/24/23 01:58 U Benzodiazepines Scrn Negative ng/mL (Negative) 10/24/23 01:58 Urine Cocaine Screen Negative ng/mL (Negative) 10/24/23 01:58 U Marijuana (THC) Screen Negative ng/mL (Negative) 10/24/23 01:58 All radiology interpretation(s) finalized by discharge Discharge Plan Discharge Patient Disposition: Home Clinical Impression: Acute urinary retention Condition: Stable Prescriptions: New Flomax 0.4 mg capsule 0.4 mg PO DAILY Qty: 30 0RF No Action promethazine 25 mg tablet 25 mg PO Q6H PRN (Reason: nausea and vomiting) Qty: 20 0RF Discharge Orders: Discharge ED (Routine); Ordered 10/24/23 Ordered By: Osman Mayes Referrals: Shalom Moffett MD [Primary Care Provider] - 1-3 days Patient Instructions: Urinary Retention in Men (ED), Abdominal Pain (ED), Opioid Safety, Pain Management Activity Restrictions/Additional Instructions: Medication as directed. Return for worsening pain despite treatment, fever, vomiting, other concerning symptoms. See your doctor this week. Coding Level of Care Code ED Student Services Director for Justyn Ellison
[2023-10-24] MEDS: ondansetron 2 mg/ML SDV 2 mL 4 MG IVP (00:28)
[2023-10-24] MEDS: ketorolac 30 mg/mL INJ IVP (00:31)
[2023-10-24 00:32] VITALS: RESP 16; O2SAT 96
[2023-10-24] MEDS: morphine 4 mg/mL SDV 1 mL IVP (00:32)
[2023-10-24] MEDS: iohexol 350 mg/mL 500 mL Btl (per mL) IV (00:42)
[2023-10-24 00:44] LABS: Basophils # 0.1 10^3/uL (0.0-0.1); Basophils % 0.8 %; Eosinophils # 0.4 10^3/uL (0.0-0.8); Eosinophils % 4.1 %; Hematocrit 41.7 % (37-53); Lymphocytes # 1.7 10^3/uL (0.8-4.8); Lymphocytes % 19.6 %; Mean Corpuscular HGB Conc 33.6 g/dL (30-55); Mean Corpuscular Hemoglobin 31.6 pg (27-33); Mean Corpuscular Volume 94.1 fl (82-101); Mean Platelet Volume 8.8 fL (7.4-10.4); Monocytes # 0.7 10^3/uL (0.2-0.9); Monocytes % 8.2 %; Neutrophils # 5.83 10^3/uL (1.8-7.7); Neutrophils % 66.3 %; Nucleated Red Blood Cells % 0 %; Platelet Count 313 10^3/cmm (157-399); Red Blood Count 4.43 10^6/uL (3.85-5.65); Red Cell Distribution Width 12.8 % (12.1-15.1); White Blood Count 8.79 10^3/uL (3.29-11.43)
[2023-10-24 00:53] LABS: Alanine Aminotransferase 14 U/L (0-41); Albumin Level 3.7 g/dL (3.5-5.2); Alkaline Phosphatase 73 U/L (40-130); Anion Gap 13.8 (5-19); Aspartate Amino Transferase 13 U/L (0-40); Blood Urea Nitrogen 13 mg/dL (6-20); C Reactive Protein 3.4 mg/L (0.0-4.9); Calcium 8.6 mg/dL (8.5-10.5); Carbon Dioxide 27 mmol/L (22-29); Chloride 103 mmol/L (98-107); Creatinine Clr Calc Pharmacy 123.0153; Globulin 2.6 g/dL (1.3-4.6); Glomerular Filtration Rate 101.9 mL/min (90-130); Glucose 134 mg/dL (65-115); Lipase 17 U/L (13-60); Osmolality Calculated 292 mOsm/kg (285-295); Potassium 3.8 mmol/L (3.5-5.1); Sodium 140 mmol/L (136-145); Total Bilirubin 0.2 mg/dL (0.15-1.2); Total Protein 6.3 g/dL (6.6-8.7)
[2023-10-24 02:02] VITALS: BP 155/112; PULSE 99; RESP 18; O2SAT 99
[2023-10-24 02:07] LABS: Charge for UA Resulting for Rev
[2023-10-24 02:11] LABS: Bilirubin Urine Negative (Negative); Blood Urine Non-haemolysed trace (Negative); Glucose Urine UA Negative (Normal); Ketones Urine Negative (Negative); Leukocyte Esterase Urine Negative (Negative); Nitrate Urine Negative (Negative); Protein Urine Negative (Negative); Urine Appearance Clear (CLEAR); Urine Color Yellow (Yellow); pH Urine 6.5 (5-7)
[2023-10-24 02:13] LABS: Specific Gravity, Urine 1.064 (1.005-1.030)
[2023-10-24 02:18] LABS: Amphetamines Screen Urine Positive (Negative); Barbiturates Screen Urine Negative (Negative); Benzodiazepines Screen Urine Negative (Negative); Cocaine Screen Urine Negative (Negative); Opiate Screen Urine Positive (Negative); PCP Screen Urine Negative (Negative); THC Screen Urine Negative (Negative)
[2023-10-24 02:25] LABS: Amorphous Sediment Urine 1+ /hpf; Bacteria Urine 1+ /hpf; UA Manual Slide Review YES; WBC Urine 15-25 /hpf (0-5)
[2023-10-24] MEDS: tamsulosin 0.4 mg Capsule PO (02:52)
[2023-10-24 02:56] VITALS: BP 156/106; PULSE 102; RESP 18; O2SAT 97
== END 2023-10-24 02:57 | disposition home or self-care (01) ==
PROVIDERS: Emergency Provider Emergency Medicine; PCP Family Medicine
DX: R33.9 Retention of urine, unspecified (principal); F17.210 Nicotine dependence, cigarettes, uncomplicated
CPT/HCPCS: 74177; 80053; 80306; 81003; 81015; 83690; 85025; 86140; 96374; 96375; 99285; J1885; J2270; J2405; Q9967

== ENCOUNTER 2024-06-23 11:44 | Inpatient (IN) | payer BC, SELFPAY ==
[2024-06-23 11:47] VITALS: BP 163/119; PULSE 114; RESP 17; TEMP 36.6; O2SAT 95; BMI 32.5
--- NOTE | 2024-06-23 11:52 | ECG_ITS ---
[facility]24[facility]23 Pat Name: Alden Velez Department: Room: Gender: Male Launch Check Out: : 1971-02-08 Requested By: Hedy Mandel Order Number: [id number] Paulson MD: Zurdo Bourne M.D. Measurements Intervals [place] Rate: 116 P: 82 TN: 163 QRS: 37 QRSD: 103 T: 78 QT: 332 QTc: 461 Interpretive Statements SINUS TACHYCARDIA POSSIBLE RIGHT ATRIAL ENLARGEMENT [0.25mV P-WAVE] ABNORMAL RHYTHM ECG No previous ECG available for comparison Electronically Signed On 06-24-2024 13:23:47 CDT by Zurdo Bourne M.D. [email or web address]
--- NOTE | 2024-06-23 12:01 | PC.NURSE ---
PT BELONGINGS REMOVED AND INVENTORIED BY THIS NURSE AND SECURITY LAURE.
--- NOTE | 2024-06-23 12:04 | ED.C_ITS ---
HPI - Psych 2 General: Chief Complaint: Psychiatric Symptoms Stated Complaint: 96 Time Seen by Provider: 06/23/24 11:46 History of Present Illness: 53-year-old man who presents emergency r oom with police on a 96-hour hold. Apparently he had been arrested in a domestic dispute and when he got into the police car he threatened to kill the secretary of police and to kill himself. Related Data Home Medications ?Medication ?Instructions ?Recorded ?Confirmed lisinopril 20 mg tablet 20 mg PO DAILY 06/23/2406/06 meloxicam 15 mg tablet 15 mg PO DAILY 06/23/2406/06 Allergies Allergy/AdvReac Type Severity Reaction Status Date / Time No Known Allergies Allergy Verified 06/23/24 11:51 Review of Systems 2 General: Reports: 10 or more systems reviewed and unremarkable except in HPI and below Physical Exam 2 Narrative: EXAM NARRATIVE: General: Alert, no acute distress. Skin: Warm, dry. Head: Normocephalic, atraumatic. Neck: Supple, trachea midline. Eye: Extraocular movements are intact. Ears, nose, mouth and throat: mucosa moist. Cardiovascular: Regular, Normal peripheral perfusion. Respiratory: Lungs are clear to auscultation, respirations are non-labored, breath sounds are equal, Symmetrical chest wall expansion. Gastrointestinal: Soft, Nontender, Non distended Musculoskeletal: Normal ROM, no deformity. Neurological: Alert and oriented, No focal neurological deficit observed. Psychiatric: Please state the patient has that he was suicidal. When I ask him he is very vague. He says I think a lot of things . Nursing said he told them he is no longer suicidal. Course 2 Vital Signs: Vital signs: Vital Signs Temperature 97.9 F 06/23/24 11:47 Pulse Rate 114 H 06/23/24 11:47 Respiratory Rate 17 06/23/24 11:47 Blood Pressure 163/119 06/23/24 11:47 Pulse Oximetry 95 06/23/24 11:47 MDM - Psych Medical Decision Making Differential diagnosis: Patient with reported depression and suicidal ideation. concerns for infection, alcohol intoxication, cardiac issues or other medical problems prior to psychiatric admission. Workup: labwork, ekg ordered to evaluate the pathologies and to clear the patient medically prior to psychiatric admission EKG: Time 1201. Rate 116. Sinus tachycardia, No ST-T changes, no ectopy, normal IA & QRS intervals, This was reviewed and interpreted by myself the ER physician at 1205 Lab Review: Laboratory results were reviewed and interpreted by myself the emergency room physician. - Medically cleared. - EKG shows no ischemic changes. - Blood alcohol level is negative, -Tylenol and salicylate levels are negative. - Drug screen is negative - No signs of infection, urinalysis clear and white count is not elevated - No anemia. - BUN and creatinine are within normal limits. Consultation: Spoke Dr. Olsen who is on-call for psychiatry who agrees to admission. Assessment and plan: Suicidal ideation Homicidal ideation -Admission to neuropsychiatric unit for continued evaluation and treatment. - All lab work was reviewed and interpreted personally by myself, the ER physician - Evaluation and treatment of this problem were appropriate in the emergency setting Lab Data 06/23/24 12:24 06/23/24 12:24 Laboratory Results WBC 7.12 10^3/uL (3.29-11.43) 06/23/24 12:24 RBC 5.18 10^6/uL (3.85-5.65) 06/23/24 12:24 Hgb 16.00 g/dL (11.27-16.99) 06/23/24 12:24 Hct 46.3 % (37-53) 06/23/24 12:24 MCV 89.4 fl (82-101) 06/23/24 12:24 MCH 30.9 pg (27-33) 06/23/24 12:24 MCHC 34.6 g/dL (30-55) 06/23/24 12:24 RDW 11.9 % (12.1-15.1) L 06/23/24 12:24 Plt Count 374 10^3/cmm (157-399) 06/23/24 12:24 MPV 8.4 fL (7.4-10.4) 06/23/24 12:24 Neut % (Auto) 69.0 % 06/23/24 12:24 Lymph % (Auto) 17.8 % 06/23/24 12:24 [place] % (Auto) 8.7 % 06/23/24 12:24 Eos % (Auto) 2.7 % 06/23/24 12:24 Baso % (Auto) 1.0 % 06/23/24 12:24 Neut # (Auto) 4.91 10^3/uL (1.8-7.7) 06/23/24 12:24 Lymph # (Auto) 1.3 10^3/uL (0.8-4.8) 06/23/24 12:24 [place] # (Auto) 0.6 10^3/uL (0.2-0.9) 06/23/24 12:24 Eos # (Auto) 0.2 10^3/uL (0.0-0.8) 06/23/24 12:24 Baso # (Auto) 0.1 10^3/uL (0.0-0.1) 06/23/24 12:24 Nucleated RBC % (auto) 0 % 06/23/24 12:24 Nucleated RBCs # 0.0 /100WBC 06/23/24 12:24 Sodium 139 mmol/L (136-145) 06/23/24 12:24 Potassium 4.3 mmol/L (3.5-5.1) 06/23/24 12:24 Chloride 104 mmol/L (98-107) 06/23/24 12:24 Carbon Dioxide 23 mmol/L (22-29) 06/23/24 12:24 Anion Gap 16.3 (5-19) 06/23/24 12:24 BUN 15 mg/dL (6-20) 06/23/24 12:24 Creatinine 0.7 mg/dL (0.7-1.2) 06/23/24 12:24 GFR Calculation 118.9 mL/min (90-130) 06/23/24 12:24 Glucose 164 mg/dL (65-115) H 06/23/24 12:24 Calculated Osmolality 292 mOsm/kg (285-295) 06/23/24 12:24 Calcium 9.5 mg/dL (8.5-10.5) 06/23/24 12:24 Total Bilirubin 0.3 mg/dL (0.15-1.2) 06/23/24 12:24 AST 16 U/L (0-40) 06/23/24 12:24 ALT 16 U/L (0-41) 06/23/24 12:24 Alkaline Phosphatase 73 U/L (40-130) 06/23/24 12:24 Total Protein 7.7 g/dL (6.6-8.7) 06/23/24 12:24 Albumin 4.4 g/dL (3.5-5.2) 06/23/24 12:24 Globulin 3.3 g/dL (1.3-4.6) 06/23/24 12:24 TSH 0.56 uIU/mL (0.27-4.20) 06/23/24 12:24 Urine Color Yellow (Yellow) 06/23/24 12:00 Urine Appearance Clear (CLEAR) 06/23/24 12:00 Urine pH 6.5 (5-7) 06/23/24 12:00 Ur Specific [place] 1.027 (1.005-1.030) 06/23/24 12:00 Urine Protein Negative (Negative) 06/23/24 12:00 Urine Glucose (UA) 3+ (Normal) H 06/23/24 12:00 Urine Ketones Negative (Negative) 06/23/24 12:00 Urine Blood Non-haemolysed trace (Negative) 06/23/24 12:00 Urine Nitrate Negative (Negative) 06/23/24 12:00 Urine Bilirubin Negative (Negative) 06/23/24 12:00 Urine Urobilinogen 1.0 mg/dL (Negative) 06/23/24 12:00 Ur Leukocyte Esterase Negative (Negative) 06/23/24 12:00 Urine RBC 3-5 /hpf (0-2) 06/23/24 12:00 Urine WBC 0-5 /hpf (0-5) 06/23/24 12:00 Ur Squamous Epith Cells 0-5 /hpf (0-5) 06/23/24 12:00 Amorphous Sediment Not Reportable 06/23/24 12:00 Urine Bacteria None seen /hpf (NONE) 06/23/24 12:00 Hyaline Casts 0.81 /lpf 06/23/24 12:00 Salicylates < 0.3 mg/dL (3-10) L 06/23/24 12:24 Urine Opiates Screen Negative ng/mL (Negative) 06/23/24 12:00 Acetaminophen < 5.0 ug/mL (10-30) L 06/23/24 12:24 Ur Barbiturates Screen Negative ng/mL (Negative) 06/23/24 12:00 Ur Phencyclidine Scrn Negative ng/mL (Negative) 06/23/24 12:00 Ur Amphetamines Screen Positive ng/mL (Negative) H 06/23/24 12:00 U Benzodiazepines Scrn Negative ng/mL (Negative) 06/23/24 12:00 Urine Cocaine Screen Negative ng/mL (Negative) 06/23/24 12:00 U Marijuana (THC) Screen Negative ng/mL (Negative) 06/23/24 12:00 Ethyl Alcohol < 10 mg/dL (0-10) 06/23/24 12:24 No radiology studies performed this visit Discharge Plan Discharge Patient Disposition: Admitted As Inpatient Clinical Impression: Suicidal ideation Condition: Stable Coding Level of Care Code ED Order Dispatcher Chief for Justyn Ellison
[2024-06-23 12:12] LABS: Bilirubin Urine Negative (Negative); Blood Urine Non-haemolysed trace (Negative); Glucose Urine UA 3+ (Normal); Ketones Urine Negative (Negative); Leukocyte Esterase Urine Negative (Negative); Nitrate Urine Negative (Negative); Protein Urine Negative (Negative); Specific Gravity, Urine 1.027 (1.005-1.030); Urine Appearance Clear (CLEAR); Urine Color Yellow (Yellow); pH Urine 6.5 (5-7)
[2024-06-23 12:17] LABS: Bacteria Urine None Seen /hpf; Hyaline Casts Urine 0.81 /lpf; Squamous Epithelial Cell Urine 0-5 /hpf (0-5); WBC Urine 0-5 /hpf (0-5)
[2024-06-23 12:21] LABS: Amphetamines Screen Urine Positive (Negative); Barbiturates Screen Urine Negative (Negative); Benzodiazepines Screen Urine Negative (Negative); Cocaine Screen Urine Negative (Negative); Opiate Screen Urine Negative (Negative); PCP Screen Urine Negative (Negative); THC Screen Urine Negative (Negative)
--- NOTE | 2024-06-23 12:23 | PC.PHAR ---
Patient stated he took Lisinipril adn Meloxicam. I spoke to [facility] and they verified , but stated his Lisinipril hadn't been filled snce January .
[2024-06-23 12:29] LABS: Basophils # 0.1 10^3/uL (0.0-0.1); Eosinophils # 0.2 10^3/uL (0.0-0.8); Eosinophils % 2.7 %; Hematocrit 46.3 % (37-53); Lymphocytes # 1.3 10^3/uL (0.8-4.8); Lymphocytes % 17.8 %; Mean Corpuscular HGB Conc 34.6 g/dL (30-55); Mean Corpuscular Hemoglobin 30.9 pg (27-33); Mean Corpuscular Volume 89.4 fl (82-101); Mean Platelet Volume 8.4 fL (7.4-10.4); Monocytes # 0.6 10^3/uL (0.2-0.9); Monocytes % 8.7 %; Neutrophils # 4.91 10^3/uL (1.8-7.7); Nucleated Red Blood Cells % 0 %; Platelet Count 374 10^3/cmm (157-399); Red Blood Count 5.18 10^6/uL (3.85-5.65); Red Cell Distribution Width 11.9 % (12.1-15.1); White Blood Count 7.12 10^3/uL (3.29-11.43)
[2024-06-23 12:59] LABS: Alanine Aminotransferase 16 U/L (0-41); Albumin Level 4.4 g/dL (3.5-5.2); Alkaline Phosphatase 73 U/L (40-130); Anion Gap 16.3 (5-19); Aspartate Amino Transferase 16 U/L (0-40); Blood Urea Nitrogen 15 mg/dL (6-20); Calcium 9.5 mg/dL (8.5-10.5); Carbon Dioxide 23 mmol/L (22-29); Chloride 104 mmol/L (98-107); Creatinine Clr Calc Pharmacy 145.3949; Globulin 3.3 g/dL (1.3-4.6); Glomerular Filtration Rate 118.9 mL/min (90-130); Glucose 164 mg/dL (65-115); Osmolality Calculated 292 mOsm/kg (285-295); Potassium 4.3 mmol/L (3.5-5.1); Sodium 139 mmol/L (136-145); Thyroid Stimulating Hormone 0.56 uIU/mL (0.27-4.20); Total Bilirubin 0.3 mg/dL (0.15-1.2); Total Protein 7.7 g/dL (6.6-8.7)
[2024-06-23 13:00] LABS: Acetaminophen < 5.0 ug/mL (10-30); Alcohol Level < 10 mg/dL (0-10); Salicylate < 0.3 mg/dL (3-10)
--- NOTE | 2024-06-23 13:46 | PC.PHAR ---
Patient States he takes 2 inhalers. I called [facility] and they filled a ventolin 01/12/24, and a Symbacort 07/19/23.
--- NOTE | 2024-06-23 14:32 | PC.NURSE ---
96 HOUR RIGHTS READ TO PT BY THIS RN WITH SECURITY AT SIDE. PT APPEARED ANXIOUS, HAD NO QUESTIONS AT THAT TIME. COPY OF RIGHTS GIVEN TO PT WITH EDUCATION PROVIDED. VERBALIZED UNDERSTANDING. SUPPORT VOICED.
[2024-06-23 16:46] VITALS: RESP 18
[2024-06-23] MEDS: diclofenac 75 mg DR Tablet PO (16:46)
[2024-06-23 20:34] VITALS: BP 125/83; PULSE 98; RESP 16; O2SAT 97
[2024-06-23 21:12] VITALS: BP 140/94; PULSE 109; RESP 17; TEMP 36.3
[2024-06-23] MEDS: trazodone 50 mg Tablet PO ×2 (21:27→23:32)
[2024-06-23] MEDS: hyDROXYzine 25 mg Capsule 50 MG PO (21:27)
[2024-06-23] MEDS: ibuprofen 600 mg Tablet PO (21:28)
[2024-06-23 21:36] VITALS: BP 140/94; PULSE 109; RESP 17; TEMP 36.3; O2SAT 98
[2024-06-23] MEDS: acetaminophen 325 mg Tablet 650 MG PO (23:32)
[2024-06-23] MEDS: OLANZapine 5 mg ODT PO (23:32)
[2024-06-24 06:00] VITALS: BP 120/73; PULSE 100; RESP 16; TEMP 37.1; O2SAT 94
[2024-06-24] MEDS: lisinopril 20 mg Tablet PO (08:52)
[2024-06-24] MEDS: meloxicam 7.5 mg tablet 15 MG PO (08:52)
[2024-06-24] MEDS: acetaminophen 325 mg Tablet 650 MG PO ×2 (09:02→21:14)
[2024-06-24] MEDS: hyDROXYzine 25 mg Capsule 50 MG PO ×2 (09:02→21:13)
[2024-06-24 14:00] VITALS: BP 116/72; PULSE 118; RESP 14; TEMP 36.8; O2SAT 90
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
[2024-06-24 20:03] VITALS: BP 150/63; PULSE 112; RESP 18; O2SAT 96
[2024-06-24] MEDS: trazodone 50 mg Tablet PO (21:14)
[2024-06-25 06:00] VITALS: RESP 16
[2024-06-25] MEDS: lisinopril 20 mg Tablet PO (08:49)
[2024-06-25] MEDS: meloxicam 7.5 mg tablet 15 MG PO (08:49)
--- NOTE | 2024-06-25 13:12 | P.NPUPN_ITS ---
Subjective NPU 2 Subjective: Patient presented today reporting that he is managing his situation okay. He continues to report pain as part of a regular pain syndrome as well as some shoulder pain that he reports is reflective of the police being overaggressive with him. He reports that now that the methamphetamine is wearing off he is feeling very irritable. He reports that he has had significant anger problems and issues with aggression in the past. He reports that of all the medications he has taken that the lithium was the most effective. He reports at 1 point he was up to 1800 mg daily. We discussed the risks, benefits and alternatives of restarting him on lithium 600 mg p.o. nightly and he understood and agreed to proceed as is documented in this note. Mental Status Exam 2 MSE Comments: This is an overweight versus obese hispanicmale in hospital scrubs with limited grooming and eye contact. No abnormal movements except for psychomotor retardation. Cooperative with exam and mild to moderate distress. Speech was decreased rate and volume. Mood described as stable, affect subdued. Thought process organized. Thought content: Patient denied suicidal or homicidal ideation, there were no delusionsreported or noted, he denied current auditory or visual hallucinations. Previously attempted suicide once at age 23 in 2040, but currently denies any thoughts of self-harm or suicide. Reportedly told police he wanted to kill them during an incident but currently denies any such thoughts. No visual hallucinations, delusions, or paranoia reported. Mood described as stable. Conflict with partner and methamphetamine use identified as stressors leading to police custody. Attention and concentration were limited and memory was mostly reliable but none were formally tested. He is alert and oriented times 3. Insight, judgment and impulse control were limited versus impaired. Vitals/I&O/Wt Last Vital Signs Temp 98.3 F 06/24/24 14:00 Pulse 112 H 06/24/24 20:03 Resp 16 06/25/24 06:00 BP 150/63 06/24/24 20:03 Pulse Ox 96 06/24/24 20:03 O2 Del Method Room Air 06/24/24 14:00 Weight last 48 hrs Weight 97.159 kg Data NPU 06/23/24 12:24 06/23/24 12:24 A&P Assessment and plan (1) Suicidal ideation: (2) Homicidal ideation: (3) Partner relational problem: (4) Methamphetamine dependence: (5) Methamphetamine intoxication: (6) Depression: Plan This is a 53-year-old white male with a long history of mental health and addiction issues with genetic loading for addiction issues who presents on a 96 hour hold. The assessment indicates that the patient was under the influence of methamphetamine during a conflict, which led to police custody and expressions of wanting to harm themselves and others. However, the patient currently denies any suicidal or homicidal ideation and is not experiencing psychosis. The situation appears to have been influenced by substance use rather than an ongoing psychiatric condition. 1. Consider medication. Started lithium 600 mg p.o. nightly. 2. Continue every 15 minute checks for safety. 3. Encourage individual, group and milieu therapies. 4. Encourage sober living treatment after discharge at the highest level of care to which he is willing to commit. 5. Get collateral information. 6. Evaluate against the backdrop of the 96-hour hold. PDMP PDMP Reviewed: Not Reviewed Involuntary Hold Information 2 Hold Status: Legal Status: 96 Hour Hold Date/Time Hold Expires: 0 06/23/24@11:50 Attestations NPU 2 Medical Necessity Statement*: Inpatient hospitalization is medically necessary and the clinically appropriate intervention at this time. We will monitor/initiate medications and make changes as indicated. Likely length of stay 2-5 days. Coding Level of Care Code Acute Code for [facility] Fwd Diagnoses Suicidal ideation R45.851 Homicidal ideation R45.850 Partner relational problem Z63.0 Methamphetamine dependence F15.20 Methamphetamine intoxication F15.929 Depression F32.A
[2024-06-25 14:00] VITALS: BP 140/87; PULSE 114; RESP 18; TEMP 36.7; O2SAT 96
[2024-06-25 19:31] VITALS: BP 152/95; PULSE 105; RESP 18; TEMP 37; O2SAT 98
[2024-06-25] MEDS: lithium carbonate 300 mg Capsule 600 MG PO (21:00)
[2024-06-25] MEDS: hyDROXYzine 25 mg Capsule 50 MG PO (21:00)
[2024-06-25] MEDS: acetaminophen 325 mg Tablet 650 MG PO (21:00)
[2024-06-25] MEDS: trazodone 50 mg Tablet PO (21:01)
[2024-06-26 06:00] VITALS: BP 160/82; PULSE 102; RESP 17; TEMP 36.8; O2SAT 95
[2024-06-26] MEDS: lisinopril 20 mg Tablet PO (08:01)
[2024-06-26] MEDS: meloxicam 7.5 mg tablet 15 MG PO (08:01)
[2024-06-26 14:00] VITALS: BP 142/93; PULSE 100; RESP 18; TEMP 36.6; O2SAT 95
[2024-06-26] MEDS: acetaminophen 325 mg Tablet 650 MG PO ×2 (16:59→21:50)
--- NOTE | 2024-06-26 18:56 | P.NPUPN_ITS ---
Subjective NPU 2 Subjective: Patient presented today reporting that he is doing all right. He endorsed having continued pain in his right shoulder and chest with some pain reported on even deep inspiration. We discussed the risks, benefits and alternatives of getting a 2 view of that right shoulder to evaluate for injury and he understood and agreed to proceed as is documented in this note. He reports that he tolerated the lithium well and feels a little better and we discussed continue to titrate the medication tomorrow as indicated. He denied any side effects of the medication and continued to report significant shoulder pain. Mental Status Exam 2 MSE Comments: This is an overweight versus obese hispanicmale in hospital scrubs with limited grooming and eye contact. No abnormal movements except for psychomotor retardation. Cooperative with exam and mild to moderate distress. Speech was decreased rate and volume. Mood described as stable, affect subdued. Thought process organized. Thought content: Patient denied suicidal or homicidal ideation, there were no delusionsreported or noted, he denied current auditory or visual hallucinations. Previously attempted suicide once at age 23 in 2040, but currently denies any thoughts of self-harm or suicide. Reportedly told police he wanted to kill them during an incident but currently denies any such thoughts. No visual hallucinations, delusions, or paranoia reported. Mood described as stable. Conflict with partner and methamphetamine use identified as stressors leading to police custody. Attention and concentration were limited and memory was mostly reliable but none were formally tested. He is alert and oriented times 3. Insight, judgment and impulse control were limited versus impaired. Vitals/I&O/Wt Last Vital Signs Temp 97.8 F 06/26/24 14:00 Pulse 100 06/26/24 14:00 Resp 18 06/26/24 14:00 BP 142/93 06/26/24 14:00 Pulse Ox 95 06/26/24 14:00 O2 Del Method Room Air 06/26/24 14:00 Weight last 48 hrs Weight 97.159 kg Data NPU 06/23/24 12:24 06/23/24 12:24 A&P Assessment and plan (1) Suicidal ideation: (2) Homicidal ideation: (3) Partner relational problem: (4) Methamphetamine dependence: (5) Methamphetamine intoxication: (6) Depression: Plan This is a 53-year-old white male with a long history of mental health and addiction issues with genetic loading for addiction issues who presents on a 96 hour hold. The assessment indicates that the patient was under the influence of methamphetamine during a conflict, which led to police custody and expressions of wanting to harm themselves and others. However, the patient currently denies any suicidal or homicidal ideation and is not experiencing psychosis. The situation appears to have been influenced by substance use rather than an ongoing psychiatric condition. 1. Consider medication. Started lithium 600 mg p.o. nightly. Increase lithium to either 900 or 1200 mg tomorrow. 2. Continue every 15 minute checks for safety. 3. Encourage individual, group and milieu therapies. 4. Encourage sober living treatment after discharge at the highest level of care to which he is willing to commit. 5. Get collateral information. 6. Evaluate against the backdrop of the 96-hour hold. 7. Get 2 view of right shoulder secondary to pain reported from encounter with police. PDMP PDMP Reviewed: Not Reviewed Involuntary Hold Information 2 Hold Status: Legal Status: 96 Hour Hold Date/Time Hold Expires: 06/23/2024 @ 11:50am Attestations NPU 2 Medical Necessity Statement*: Inpatient hospitalization is medically necessary and the clinically appropriate intervention at this time. We will monitor/initiate medications and make changes as indicated. Likely length of stay 1-4 days. Coding Level of Care Code Acute Code for g Fwd Diagnoses Suicidal ideation R45.851 Homicidal ideation R45.850 Partner relational problem Z63.0 Methamphetamine dependence F15.20 Methamphetamine intoxication F15.929 Depression F32.A
--- NOTE | 2024-06-26 19:51 | XRR_ITS ---
PROCEDURE INFORMATION: Exam: XR Right Shoulder Exam date and time: 06/26/2024 8:27 PM Age: 54 years old Clinical indication: Pain; Shoulder; Right TECHNIQUE: Imaging protocol: Radiologic exam of the right shoulder. Views: 2 or more views. COMPARISON: No relevant prior studies available. FINDINGS: Bones/joints: Advanced osteoarthritis of the glenohumeral joint with bulky osteophyte formation and some remodeling of the humeral head. No acute fracture or dislocation. Mild degenerative change AC joint. Soft tissues: Normal. XR/XR shoulder RT min 2V* [id number] IMPRESSION: Osteoarthritis.
[2024-06-26] MEDS: lithium carbonate 300 mg Capsule 600 MG PO (20:06)
[2024-06-26] MEDS: trazodone 50 mg Tablet PO ×2 (20:06→23:26)
[2024-06-26] MEDS: hyDROXYzine 25 mg Capsule 50 MG PO (20:06)
[2024-06-26 20:21] VITALS: BP 159/95; PULSE 114; RESP 18; TEMP 36.7; O2SAT 93
[2024-06-26] MEDS: OLANZapine 5 mg ODT PO (23:26)
[2024-06-27 06:00] VITALS: BP 98/68; PULSE 98; RESP 16; O2SAT 97
[2024-06-27] MEDS: lisinopril 20 mg Tablet PO (11:36)
[2024-06-27] MEDS: meloxicam 7.5 mg tablet 15 MG PO (11:36)
[2024-06-27] MEDS: acetaminophen 325 mg Tablet 650 MG PO ×2 (11:37→16:39)
[2024-06-27 14:00] VITALS: BP 118/74; PULSE 107; RESP 18; TEMP 36.4; O2SAT 96
--- NOTE | 2024-06-27 16:00 | P.NPUPN_ITS ---
Subjective NPU 2 Subjective: Patient presented today reporting that he is feeling a little better emotionally. He continues to report pain in his shoulder and we discussed the fact that the likelihood is he would get a referral to some appropriate follow- up after discharge. He [place] that [place] and we would likely try to find him something there. Otherwise we discussed continuing the lithium and the likelihood of discharge in the next 48 hours if things go well. He denied any side effects to the medication. We discussed the risks, benefits and alternatives of increasing his lithium and he understood and agreed to proceed as is documented in this note. Mental Status Exam 2 MSE Comments: This is an overweight versus obese hispanicmale in hospital scrubs with limited grooming and eye contact. No abnormal movements except for psychomotor retardation. Cooperative with exam and mild to moderate distress. Speech was decreased rate and volume. Mood described as stable, affect subdued. Thought process organized. Thought content: Patient denied suicidal or homicidal ideation, there were no delusionsreported or noted, he denied current auditory or visual hallucinations. Previously attempted suicide once at age 23 in 2040, but currently denies any thoughts of self-harm or suicide. Reportedly told police he wanted to kill them during an incident but currently denies any such thoughts. No visual hallucinations, delusions, or paranoia reported. Mood described as stable. Conflict with partner and methamphetamine use identified as stressors leading to police custody. Attention and concentration were limited and memory was mostly reliable but none were formally tested. He is alert and oriented times 3. Insight, judgment and impulse control were limited versus impaired. Vitals/I&O/Wt Last Vital Signs Temp 98.0 F 06/26/24 20:21 Pulse 98 06/27/24 06:00 Resp 16 06/27/24 06:00 BP 98/68 06/27/24 06:00 Pulse Ox 97 06/27/24 06:00 O2 Del Method Room Air 06/26/24 14:00 Data NPU 06/23/24 12:24 06/23/24 12:24 A&P Assessment and plan (1) Suicidal ideation: (2) Homicidal ideation: (3) Partner relational problem: (4) Methamphetamine dependence: (5) Methamphetamine intoxication: (6) Depression: Plan This is a 53-year-old white male with a long history of mental health and addiction issues with genetic loading for addiction issues who presents on a 96 hour hold. The assessment indicates that the patient was under the influence of methamphetamine during a conflict, which led to police custody and expressions of wanting to harm themselves and others. However, the patient currently denies any suicidal or homicidal ideation and is not experiencing psychosis. The situation appears to have been influenced by substance use rather than an ongoing psychiatric condition. 1. Consider medication. Started lithium 600 mg p.o. nightly. Increase lithium to 900 and 1200 mg tomorrow in twice daily dosing 2. Continue every 15 minute checks for safety. 3. Encourage individual, group and milieu therapies. 4. Encourage sober living treatment after discharge at the highest level of care to which he is willing to commit. 5. Get collateral information. 6. Evaluate against the backdrop of the 96-hour hold. 7. Get 2 view of right shoulder secondary to pain reported from encounter with police. 8. Consider hospitalist consult on shoulder pain. PDMP PDMP Reviewed: Not Reviewed Involuntary Hold Information 2 Hold Status: Legal Status: 96 Hour Hold Date/Time Hold Expires: 0 06/29/24@1150 Attestations NPU 2 Medical Necessity Statement*: Inpatient hospitalization is medically necessary and the clinically appropriate intervention at this time. We will monitor/initiate medications and make changes as indicated. Likely length of stay 1-3 days. Coding Level of Care Code Acute Code for [facility] Fwd Diagnoses Suicidal ideation R45.851 Homicidal ideation R45.850 Partner relational problem Z63.0 Methamphetamine dependence F15.20 Methamphetamine intoxication F15.929 Depression F32.A
[2024-06-27] MEDS: nicotine 2 mg Gum BUCCAL (16:39)
--- NOTE | 2024-06-27 16:47 | PC.NURSE ---
probation and parole Pt spoke with his forestry technical officer. Dewayne Brasher [phone] Would like a call from Social Work team.
[2024-06-27] MEDS: lithium carbonate ER 300 mg Tablet PO (17:49)
[2024-06-27 20:00] VITALS: BP 135/81; PULSE 110; RESP 18; O2SAT 97
[2024-06-27] MEDS: lithium carbonate 300 mg Capsule 600 MG PO (20:36)
[2024-06-27] MEDS: OLANZapine 5 mg ODT PO (20:36)
[2024-06-27] MEDS: trazodone 50 mg Tablet PO ×2 (20:36→22:08)
[2024-06-27] MEDS: haloperidol 5 mg Tablet PO (22:08)
[2024-06-27] MEDS: hyDROXYzine 25 mg Capsule 50 MG PO (23:39)
[2024-06-28 06:00] VITALS: RESP 16
--- NOTE | 2024-06-28 06:40 | PC.NURSE ---
pt did not get to sleep till late in shift pt asked if we would not get his vitals this morning
[2024-06-28] MEDS: lithium carbonate 300 mg Capsule 600 MG PO ×2 (09:25→20:02)
[2024-06-28] MEDS: meloxicam 7.5 mg tablet 15 MG PO (09:26)
[2024-06-28] MEDS: lisinopril 20 mg Tablet PO (09:30)
[2024-06-28] MEDS: nicotine 2 mg Gum BUCCAL ×2 (09:31→16:43)
[2024-06-28 14:00] VITALS: BP 120/72; PULSE 106; RESP 16; TEMP 36.6; O2SAT 96
--- NOTE | 2024-06-28 15:18 | P.NPUPN_ITS ---
Subjective NPU 2 Subjective: Patient presented today reporting that he is doing okay. He continued to have right shoulder difficulties and we discussed plan to have him follow-up with orthopedics. We did discuss the risks, benefits and alternatives of starting Flexeril 5 mg p.o. 3 times daily as needed as well as Neurontin 300 mg p.o. nightly to assist him with his pain and discomfort in the joint until he has follow-up outpatient. He denied any issues with the increase in his lithium and we discussed whether increasing it again before discharge would be appropriate. We discussed the likelihood of discharge tomorrow and he denied any side effects of the medications. Mental Status Exam 2 MSE Comments: This is an overweight versus obese hispanicmale in hospital scrubs with limited grooming and eye contact. No abnormal movements except for psychomotor retardation. Cooperative with exam and mild to moderate distress. Speech was decreased rate and volume. Mood described as stable, affect subdued. Thought process organized. Thought content: Patient denied suicidal or homicidal ideation, there were no delusionsreported or noted, he denied current auditory or visual hallucinations. Attention and concentration were limited and memory was mostly reliable but none were formally tested. He is alert and oriented times 3. Insight, judgment and impulse control were limited versus impaired. Vitals/I&O/Wt Last Vital Signs Temp 97.6 F 06/27/24 14:00 Pulse 110 H 06/27/24 20:00 Resp 16 06/28/24 06:00 BP 135/81 06/27/24 20:00 Pulse Ox 97 06/27/24 20:00 O2 Del Method Room Air 06/26/24 14:00 Data NPU 06/23/24 12:24 06/23/24 12:24 A&P Assessment and plan (1) Suicidal ideation: (2) Homicidal ideation: (3) Partner relational problem: (4) Methamphetamine dependence: (5) Methamphetamine intoxication: (6) Depression: Plan This is a 53-year-old white male with a long history of mental health and addiction issues with genetic loading for addiction issues who presents on a 96 hour hold. The assessment indicates that the patient was under the influence of methamphetamine during a conflict, which led to police custody and expressions of wanting to harm themselves and others. However, the patient currently denies any suicidal or homicidal ideation and is not experiencing psychosis. The situation appears to have been influenced by substance use rather than an ongoing psychiatric condition. 1. Consider medication. Started lithium 600 mg p.o. nightly. Increased lithium to 900 then 1200 mg this morning in twice daily dosing. Started Flexeril 5 mg 3 times daily as needed for the shoulder and the right side. He will need appropriate follow-up for that shoulder. Also initiated Neurontin 300 mg at bedtime to assist a little with the pain as well and to help with sleep. 2. Continue every 15 minute checks for safety. 3. Encourage individual, group and milieu therapies. 4. Encourage sober living treatment after discharge at the highest level of care to which he is willing to commit. 5. Get collateral information. 6. Evaluate against the backdrop of the 96-hour hold. 7. Get 2 view of right shoulder secondary to pain reported from encounter with police. 8. Consider hospitalist consult on shoulder pain. PDMP PDMP Reviewed: Not Reviewed Involuntary Hold Information 2 Hold Status: Legal Status: 96 Hour Hold Date/Time Hold Expires: 0 06/29/24@1150 Attestations NPU 2 Medical Necessity Statement*: Inpatient hospitalization is medically necessary and the clinically appropriate intervention at this time. We will monitor/initiate medications and make changes as indicated. Likely length of stay 1-3 days. Coding Level of Care Code Acute Code for [facility] Fwd Diagnoses Suicidal ideation R45.851 Homicidal ideation R45.850 Partner relational problem Z63.0 Methamphetamine dependence F15.20 Methamphetamine intoxication F15.929 Depression F32.A
[2024-06-28 19:47] VITALS: BP 128/81; PULSE 120; RESP 18; TEMP 36.3; O2SAT 96
[2024-06-28] MEDS: acetaminophen 325 mg Tablet 650 MG PO (20:02)
[2024-06-28] MEDS: gabapentin 300 mg Capsule PO (20:02)
[2024-06-28] MEDS: trazodone 50 mg Tablet PO (20:02)
[2024-06-28] MEDS: hyDROXYzine 25 mg Capsule 50 MG PO (20:03)
[2024-06-28] MEDS: cyclobenzaprine 10 mg Tablet 5 MG PO (20:04)
[2024-06-29 06:00] VITALS: BP 122/84; PULSE 98; RESP 15; TEMP 36.9; O2SAT 96
[2024-06-29] MEDS: lisinopril 20 mg Tablet PO (08:27)
[2024-06-29] MEDS: lithium carbonate 300 mg Capsule 600 MG PO (08:27)
[2024-06-29] MEDS: meloxicam 7.5 mg tablet 15 MG PO (08:27)
--- NOTE | 2024-06-29 10:07 | PC.NURSE ---
Pt states that he slept good last night. He denies any anxiety or depression this am. No reports of hallucinations. Denies SI/HI. Rates his pain about a 3/10 in his Rt shoulder. I let pt know that he has tylenol and IBu on his med list if he may need it. He states that getting his Mobic with his morning medications should help.
[2024-06-29] MEDS: hyDROXYzine 25 mg Capsule 50 MG PO (13:34)
[2024-06-29] MEDS: OLANZapine 5 mg ODT PO (14:15)
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
[2024-06-29 15:28] VITALS: BP 136/78; PULSE 78; RESP 18; TEMP 36.8; O2SAT 98
[2024-06-29 15:35] VITALS: BP 136/78; PULSE 78; RESP 18; TEMP 36.8; O2SAT 98
== END 2024-06-29 16:08 | disposition home or self-care (01) | DRG 897 ==
LOC: ER 14:38 → NP 18:10
PROVIDERS: Admitting Provider Psychiatry & Neurology Psychiatry; Emergency Provider Emergency Medicine; PCP Family Medicine; Visit Provider Psychiatry & Neurology Psychiatry
DX: F15.229 Other stimulant dependence with intoxication, unspecified (principal); R45.851 Suicidal ideations; R45.850 Homicidal ideations; Z63.0 Problems in relationship with spouse or partner; F32.A Depression, unspecified; Z91.51 Personal history of suicidal behavior; Z81.8 Family history of other mental and behavioral disorders; E66.9 Obesity, unspecified; Z68.31 Body mass index [BMI] 31.0-31.9, adult; F17.210 Nicotine dependence, cigarettes, uncomplicated; M25.511 Pain in right shoulder
CPT/HCPCS: 36415; 73030; 80053; 80306; 80307; 81001; 84443; 85025; 93005; 97140; 97161; 97165; 97530; 99285; J9999

== ENCOUNTER 2024-07-05 11:52 | Inpatient (IN) | payer BC, MEDICAID, SELFPAY ==
[2024-07-05] VITALS (94 sets, daily range): BP systolic 75–141; BP diastolic 37–75; PULSE 83–101; RESP 12–26; TEMP 36.6–37; O2SAT 76–100; BMI 31.7; BMI 31.6
--- NOTE | 2024-07-05 11:56 | ECG_ITS ---
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 Measurements Intervals [place] Rate: 90 P: 76 OR: 152 QRS: 62 QRSD: 109 T: 87 QT: 402 QTc: 494 Interpretive Statements SINUS RHYTHM INCOMPLETE RIGHT BUNDLE BRANCH BLOCK [90+ ms QRS DURATION, TERMINAL R IN V1/V2, 40+ ms S IN I/aVL/V4/V5/V6] Compared to ECG 03/14/2022 10:13:52 Sinus tachycardia no longer present Atrial abnormality no longer present Electronically Signed On 07-10-2024 10:15:58 CDT by Jose Juan Patel M.D. [email or web address]
[2024-07-05] MEDS: sodium chloride 0.9% 1,000 ML 999 ML IV ×2 (12:12→12:51)
--- NOTE | 2024-07-05 12:12 | ED_ITS ---
HPI - Overdose 2 General: Chief Complaint: Overdose Stated Complaint: to much meds/ no SI Time Seen by Provider: 07/05/24 11:53 Source: patient and EMS Mode of arrival: EMS Limitations: no limitations History of Present Illness: 54-year-old male that was admitted to [facility] and discharged on the he had been put on lithium he states that he is feeling bad over the last 3 days has been taking increased doses of his lithium states he has been taking triple the dose and today has not been feeling right states he has felt shaky and dehydrated and a dry mouth he denies doing this intent to harm himself he is not suicidal or homicidal Related Data Previous Rx's ?Medication ?Instructions ?Recorded gabapentin 300 mg capsule 300 mg PO BEDTIME 30 days #3 0 caps 06/29/24 lisinopril 20 mg tablet 20 mg PO DAILY 30 days #30 t abs 06/29/24 lithium carbonate 600 mg capsule 600 mg PO 0900,2100 3 0 days #60 06/29/24 caps meloxicam 15 mg tablet 15 mg PO DAILY 30 days #30 t abs 06/29/24 Allergies Allergy/AdvReac Type Severity Reaction Status Date / Time adhesive tape Allergy ALGY-Bliste Verified 07/05/24 12:06 r Review of Systems 2 Const: Denies: fever(s), chills, body aches or change in appetite ENMT: Denies: throat pain or dental pain Card: Denies: chest pain Resp: Denies: dyspnea GI: Denies: abdominal pain, nausea, vomiting or diarrhea Musc: Denies: neck pain or back pain Skin/Breast: Denies: rash Neuro: Denies: headache(s) [facility] ED 2 PFSH: Medical History Osteoarthritis of knees, bilateral Social History Smoking and tobacco/nicotine status: current every day tobacco/nicotine user cigarettes Packs smoked per day: 1 Physical Exam 2 Const: COMMON NORMALS: patient oriented x3 HENMT: COMMON NORMALS: normocephalic and atraumatic HEAD & SCALP: n ormocephalic and atraumatic Eye: COMMON NORMALS: Equal, round and reactive pupils present and EOMs intact bilaterally PUPIL: Yes Equal, round and reactive pupils present Neck/C-Spine: COMMON NORMALS: full ROM and supple Chest: COMMONS NORMALS: normal inspection of the chest and normal palpation of entire chest wall Resp: COMMON NORMALS: normal respiratory effort, No retractions, No use of accessory muscles and clear to auscultation bilaterally AUSCULTATION: clear to auscultation bilaterally Cardio: COMMON NORMALS: regular rate, regular rhythm and No murmurs present (Cardio) RATE: regular rate RHYTHM: regular rhythm GI: COMMON NORMALS: Normal to inspection, nondistended, normoactive bowel sounds present, Soft to palpation, non-tender and no masses PALPATION: Yes Soft to palpation Extremity: COMMON NORMALS: normal to inspection and full ROM Neuro: COMMON NORMALS: patient oriented x3, moves all extremities and no focal motor deficits Psych: COMMON NORMALS: mental status grossly normal, Normal thought process present and cooperative THOUGHT PROCESS: Normal thought process present Skin: COMMON NORMALS: no rashes or lesions noted and no wounds GENERAL SKIN EXAM: no rashes or lesions noted Course 2 Vital Signs: Vital signs: Vital Signs Temperature 97.9 F 07/05/24 11:53 Pulse Rate 88 07/05/24 12:40 Respiratory Rate 19 H 07/05/24 12:40 Blood Pressure 87/53 07/05/24 12:40 Pulse Oximetry 97 07/05/24 12:40 Oxygen Delivery Me thod Room Air 07/05/24 12:15 MDM - Overdose Medical Decision Making Patient presents here with lithium toxicity likely causing his acute kidney injury I spoke to the hospitalist will admit to the ICU at this time. Medical Records I reviewed the patient's medical records. Lab Data I reviewed the patient's lab results. 07/05/24 12:06 07/05/24 12:06 Laboratory Results WBC 14.98 10^3/uL (3.29-11.43) H 07/05/24 12:06 RBC 3.95 10^6/uL (3.85-5.65) 07/05/24 12:06 Hgb 12.40 g/dL (11.27-16.99) 07/05/24 12:06 Hct 36.5 % (37-53) L 07/05/24 12:06 MCV 92.4 fl (82-101) 07/05/24 12:06 MCH 31.4 pg (27-33) 07/05/24 12:06 MCHC 34.0 g/dL (30-55) 07/05/24 12:06 RDW 12.4 % (12.1-15.1) 07/05/24 12:06 Plt Count 279 10^3/cmm (157-399) 07/05/24 12:06 MPV 8.9 fL (7.4-10.4) 07/05/24 12:06 Neut % (Auto) 80.7 % 07/05/24 12:06 Lymph % (Auto) 8.7 % 07/05/24 12:06 [place] % (Auto) 7.5 % 07/05/24 12:06 Eos % (Auto) 1.9 % 07/05/24 12:06 Baso % (Auto) 0.5 % 07/05/24 12:06 Neut # (Auto) 12.10 10^3/uL (1.8-7.7) H 07/05/24 12:06 Lymph # (Auto) 1.3 10^3/uL (0.8-4.8) 07/05/24 12:06 [place] # (Auto) 1.1 10^3/uL (0.2-0.9) H 07/05/24 12:06 Eos # (Auto) 0.3 10^3/uL (0.0-0.8) 07/05/24 12:06 Baso # (Auto) 0.1 10^3/uL (0.0-0.1) 07/05/24 12:06 Nucleated RBC % (auto) 0 % 07/05/24 12:06 Nucleated RBCs # 0.0 /100WBC 07/05/24 12:06 Specimen Type Arterial 07/05/24 12:17 Sample Site Brachial, right 07/05/24 12:17 ABG pH 7.35 (7.35-7.45) 07/05/24 12:17 ABG pCO2 38.7 mmHg (35-45) 07/05/24 12:17 ABG pO2 70.8 mmHg (80.0-100.0) L 07/05/24 12:17 ABG PO2/FiO2 Ratio 337 07/05/24 12:17 ABG HCO3 21.2 mmol/L (22-26) L 07/05/24 12:17 ABG Base Excess -4.1 mmol/L (-2.0-2.0) L 07/05/24 12:17 Danny Test Pos 07/05/24 12:17 Hematocrit 37.0 % (42-52) L 07/05/24 12:17 O2 Delivery Device Room air 07/05/24 12:17 FiO2 21.0 % 07/05/24 12:17 School Bus Aide ID [place] 07/05/24 12:17 Sodium 132 mmol/L (136-145) L 07/05/24 12:06 Potassium 3.8 mmol/L (3.5-5.1) 07/05/24 12:06 Chloride 93 mmol/L (98-107) L 07/05/24 12:06 Carbon Dioxide 23 mmol/L (22-29) 07/05/24 12:06 Anion Gap 19.8 (5-19) H 07/05/24 12:06 BUN 65 mg/dL (6-20) H 07/05/24 12:06 Creatinine 6.0 mg/dL (0.7-1.2) H* 07/05/24 12:06 GFR Calculation 9.9 mL/min (90-130) L 07/05/24 12:06 Glucose 100 mg/dL (65-115) 07/05/24 12:06 Calculated Osmolality 293 mOsm/kg (285-295) 07/05/24 12:06 Calcium 8.4 mg/dL (8.5-10.5) L 07/05/24 12:06 Total Bilirubin 0.6 mg/dL (0.15-1.2) 07/05/24 12:06 AST 92 U/L (0-40) H 07/05/24 12:06 ALT 48 U/L (0-41) H 07/05/24 12:06 Alkaline Phosphatase 71 U/L (40-130) 07/05/24 12:06 Total Protein 6.7 g/dL (6.6-8.7) 07/05/24 12:06 Albumin 3.9 g/dL (3.5-5.2) 07/05/24 12:06 Globulin 2.8 g/dL (1.3-4.6) 07/05/24 12:06 [place] 2.2 mmol/L (0.6-1.2) H* 07/05/24 12:06 Ethyl Alcohol < 10 mg/dL (0-10) 07/05/24 12:06 All radiology interpretation(s) finalized by discharge EKG Data EKG 1: I personally reviewed and interpreted this EKG as follows: EKG interpretation date: 07/05/24 EKG interpretation time: 11:58 Interpretation: nsr hr [address] elevation qrs 109 qtc 450 Critical Care Time 2 Critical Care Time: Critical Care Time: Yes Total Critical Care Time: 40 Attestation: The high probability of a clinically significant, sudden or life threatening deterioration of the patient's renal system(s) required my full and direct attention, intervention and personal management. The critical care time is as shown. This time is in addition to time spent performing any reported procedures but includes the following: [x] Data and vital sign review and interpretation [x] Patient assessment, examination and intervention [x] Documentation [x] Medication orders and management Discharge Plan Discharge Condition: Stable Coding Level of Care Code ED Negative Spotter for Justyn Ellison
[2024-07-05 12:13] LABS: Basophils # 0.1 10^3/uL (0.0-0.1); Basophils % 0.5 %; Eosinophils # 0.3 10^3/uL (0.0-0.8); Eosinophils % 1.9 %; Hematocrit 36.5 % (37-53); Lymphocytes # 1.3 10^3/uL (0.8-4.8); Lymphocytes % 8.7 %; Mean Corpuscular Hemoglobin 31.4 pg (27-33); Mean Corpuscular Volume 92.4 fl (82-101); Mean Platelet Volume 8.9 fL (7.4-10.4); Monocytes # 1.1 10^3/uL (0.2-0.9); Monocytes % 7.5 %; Neutrophils % 80.7 %; Nucleated Red Blood Cells % 0 %; Platelet Count 279 10^3/cmm (157-399); Red Blood Count 3.95 10^6/uL (3.85-5.65); Red Cell Distribution Width 12.4 % (12.1-15.1); White Blood Count 14.98 10^3/uL (3.29-11.43)
[2024-07-05 12:26] LABS: ABG PCO2 38.7 mmHg (35-45); ABG PH Result 7.35 (7.35-7.45); Base Excess ABG -4.1 mmol/L (-2.0-2.0); Blood Gas Allen Test Pos; Blood Gas Operator Identificat WALCI; Blood Gas Sample Site Brachial, right; Blood Gas Sample Type Arterial; HCO3 ABG 21.2 mmol/L (22-26); Oxygen Device ROOM AIR; PO2 ABG 70.8 mmHg (80.0-100.0); PO2 FiO2 Ratio Arterial Blood 337
[2024-07-05 12:32] LABS: Alanine Aminotransferase 48 U/L (0-41); Albumin Level 3.9 g/dL (3.5-5.2); Alkaline Phosphatase 71 U/L (40-130); Anion Gap 19.8 (5-19); Aspartate Amino Transferase 92 U/L (0-40); Blood Urea Nitrogen 65 mg/dL (6-20); Calcium 8.4 mg/dL (8.5-10.5); Carbon Dioxide 23 mmol/L (22-29); Chloride 93 mmol/L (98-107); Creatinine Clr Calc Pharmacy 16.5873; Globulin 2.8 g/dL (1.3-4.6); Glomerular Filtration Rate 9.9 mL/min (90-130); Glucose 100 mg/dL (65-115); Osmolality Calculated 293 mOsm/kg (285-295); Potassium 3.8 mmol/L (3.5-5.1); Sodium 132 mmol/L (136-145); Total Bilirubin 0.6 mg/dL (0.15-1.2); Total Protein 6.7 g/dL (6.6-8.7)
[2024-07-05 12:40] LABS: Alcohol Level < 10 mg/dL (0-10)
[2024-07-05 12:42] LABS: Lithium 2.2 mmol/L (0.6-1.2)
--- NOTE | 2024-07-05 13:17 | P.CONIM_ITS ---
Providers/Reason For Consult 2 Consulting Physician/Specialty*: kommana/Nephrology Reason for Consult*: DANAE , lithium toxocity Attending Physician: Cristal Orellana MD Primary Care Provider: Shalom Moffett History of Present Illness History of Present Illness Alden Velez Jr is a 54 year old male Patient is a 54-year-old male who was recently admitted to the hospital to the psychiatric unit for suicidal ideation and homicidal ideation and was started on lithium 600 mg twice a day. Patient had used lithium in the past at higher doses. After discharge from the hospital patient states that he was not feeling well and took increased doses of lithium. He reported that he was taking 2-3 times higher doses than prescribed. [place] level in the ER was 2.21 and creatinine was elevated at 6.0. Creatinine was 0.7 about a week ago.UOP low . ER placed Temporary HD catheter Review of Systems 2 Narrative: negative Medications/Allergies Home Medications ?Medication ?Instructions ?Recorded ?Confirmed ?Last Taken ?Type gabapentin 300 mg capsule 300 mg PO BEDTIME 30 days #3 0 caps 06/29/24 07/05/24 Unknown Rx lisinopril 20 mg tablet 20 mg PO DAILY 30 days #30 t abs 06/29/24 07/05/24 Unknown Rx lithium carbonate 600 mg capsule 600 mg PO 0900,2100 3 0 days #60 06/29/24 07/05/24 Unknown Rx caps meloxicam 15 mg tablet 15 mg PO DAILY 30 days #30 t abs 06/29/24 07/05/24 Unknown Rx Allergies Allergy/AdvReac Type Severity Reaction Status Date / Time adhesive tape Allergy ALGY-Bliste Verified 07/05/24 12:06 r Current Medications Generic Name Dose Route Start Last Admin Trade Name Freq PRN Reason Stop Dose Admin Sodium Chloride 1,000 mls @ 999 mls/hr 07/05/24 12:31 07/05/24 12:51 Sodium Chloride 0.9% IV 07/05/24 13:31 999 mls/hr .Q1H1M ONE Administration PFSH Acute 2 PFSH: Medical History Osteoarthritis of knees, bilateral Social History Smoking and tobacco/nicotine status: current every day tobacco/nicotine user cigarettes Packs smoked per day: 1 Vitals/I&O/Wt Last Vital Signs Temp 97.9 F 07/05/24 11:53 Pulse 88 07/05/24 12:40 Resp 19 H 07/05/24 12:40 BP 87/53 07/05/24 12:40 Pulse Ox 97 07/05/24 12:40 O2 Del Method Room Air 07/05/24 12:15 07/04/24 07/05/24 07/05/24 22:59 06:59 14:59 Intake Total 1000 / 1000 Balance 1000 / 1000 Weight last 48 hrs Weight 97.522 kg Physical Exam 2 Narrative: awake, confused , no distress PEERLA S1S2 RRR per report Lungs clear per report Abd - soft , non tender , no distress Data 07/06/24 03:33 07/06/24 03:33 A&P Assessment and plan (1) Acute kidney injury: 1. N[place] Six toxicity : due to medication overdose. Pt also has severe DANAE and has poor UOP. S/P IVFs , Recommended Temp HD catheter placement and plan for HD Assess daily for HD needs check lithium level daily 2. DANAE : likely pre renal and lithium toxicity, NSAID use , HD a above 3. HTN : Hold lisonopril (2) [place] toxicity: PDMP PDMP Reviewed: Not Reviewed Consult Attestations 2 Medical Necessity Statement: per álvaro Coding Level of Care Code Acute Code for [facility] Diagnoses Acute kidney injury N17.9 N[place] toxicity T56.891A
[2024-07-05 13:55] LABS: Hepatitis B Surface AB < 3.5 (11.5-1000); Hepatitis B Surface Antigen Non-Reactive (Nonreactive)
[2024-07-05] MEDS: LORazepam 2 mg/mL INJ 1 mL 1 MG IVP (13:55)
--- NOTE | 2024-07-05 14:52 | PC.NURSE ---
Patient arrived to ICU10 from ED at 1416. Patient is lethargic but alert and oriented, slightly anxious at times. Dr Orellana and Dr Winn at bedside. Patients personal belongings recorded on admission assessment and at bedside. Patient currently NPO per Dr. Orellana.
[2024-07-05] MEDS: sodium chloride 0.9% 1,000 ML 75 ML IV (15:03)
--- NOTE | 2024-07-05 15:13 | USR_ITS ---
PROCEDURE INFORMATION: Exam: US Retroperitoneal, Complete, Kidneys and Bladder Exam date and time: 07/05/2024 8:04 PM Age: 54 years old Clinical indication: Condition or disease; Other: Hydronephrosis; Additional info: Assess for hydronephrosis, PT is currently undergoing dialysis- will be done @ 1900-js TECHNIQUE: Imaging protocol: Real-time ultrasound of the retroperitoneum with image documentation. Complete exam focused on the bilateral kidneys and urinary bladder. COMPARISON: CT abdomen pelvis w con* [id number] 10/24/2023 12:40 AM FINDINGS: Right kidney: Normal. No stones. No hydronephrosis. Two cysts, the largest 18 mm. Left kidney: Normal. No stones. No hydronephrosis. 17 mm cyst. Urinary bladder: Collapsed around a Dow catheter. US/US renal BI* [id number] IMPRESSION: Unremarkable kidneys and bladder.
--- NOTE | 2024-07-05 15:26 | P.HP_ITS ---
Providers/Chief Complaint 2 Admitting Physician: Cristal Orellana MD Primary Care Provider: Shalom Moffett Chief Complaint: to much meds/ no SI History of Present Illness Alden Velez Jr is a 54 year old male recently admitted here until June 29, 2024 on a 96-hour hold with suicidal and homicidal ideation. Patient is chronically maintained on lithium, on the recent discharge his dose was increased to 600 mg p.o. twice daily. Patient states that he has been upset over the last 3-4 days as his is going to half-way and has been taking increasing doses of the lithium to feel better. He reported taking 2-3 times a dose each time for the last 2 to 3 days. He is unable to give me an exact quantity. Attempts to reach his home were not successful. His lithium level was at 2.2 today. Labs are notable for acute kidney failure with creatinine of 6.0. Patient is expected exhibiting signs of lithium neurotoxicity, he has a slurred speech, he is able to answer orientation questions however speech is slurred, from answering questions meaningfully he goes into a garbled speech, he he is fidgety and restless while laying in bed pulling at his Dow catheter intermittently. He states he knew that he had taken too much lithium because he felt off balance , was unable to walk, and also developed urinary and bowel incontinence. Urgent dialysis is being initiated. He denies any other drug use at this time. Review of Systems 2 General: Reports: 10 or more systems reviewed and unremarkable except in HPI and below Const: Denies: fever(s), chills or body aches Eyes: Denies: change in vision, blurry vision or photophobia ENMT: Reports: hoarseness; Denies: throat pain, enlarged tonsils, odynophagia or nasal congestion Card: Denies: chest pain, palpitations, irregular heart rhythm, edema, swelling of feet/ankles, lightheadedness, pre-syncope, dyspnea on exertion or orthopnea Resp: Denies: dyspnea, productive cough, non-productive cough, wheezing, stridor, pain on inspiration, change in phlegm color, hemoptysis or chest congestion GI: Denies: abdominal pain, nausea, vomiting, hematemesis, coffee ground emesis, dysphagia, heartburn, diarrhea, constipation, GI cramping, change in stool character, hematochezia or melena : Denies: flank pain, dysuria, urinary frequency, urinary urgency, urinary hesitancy or hematuria Musc: Denies: neck pain, back pain, extremity pain, joint swelling, joint warmth or deformity Neuro: Denies: headache(s), numbness in extremities, weakness in extremities, sensory changes, difficulty walking, frequent falls, dizziness, vertigo, behavioral changes, Slurred speech present or seizure-like activity Psych: Denies: anxiety, depression, suicidal ideation or homicidal ideation Endo: Denies: polyuria, polydipsia, tired all the time, cold intolerance or hot flashes Nicholas/Lymph: Denies: easy bruising or easy bleeding Medications/Allergies Home Medications ?Medication ?Instructions ?Recorded ?Confirmed ?Last Taken ?Type gabapentin 300 mg capsule 300 mg PO BEDTIME 30 days #3 0 caps 06/29/24 07/05/24 Unknown Rx lisinopril 20 mg tablet 20 mg PO DAILY 30 days #30 t abs 06/29/24 07/05/24 Unknown Rx lithium carbonate 600 mg capsule 600 mg PO 0900,2100 3 0 days #60 06/29/24 07/05/24 Unknown Rx caps meloxicam 15 mg tablet 15 mg PO DAILY 30 days #30 t abs 06/29/24 07/05/24 Unknown Rx Allergies Allergy/AdvReac Type Severity Reaction Status Date / Time adhesive tape Allergy ALGY-Ariciste Verified 07/05/24 12:06 r PFSH Acute 2 PFSH: Medical History Osteoarthritis of knees, bilateral Social History Smoking and tobacco/nicotine status: current every day tobacco/nicotine user cigarettes Packs smoked per day: 1 Vitals/I&O/Wt Last Vital Signs Temp 98.2 F 07/05/24 14:55 Pulse 85 07/05/24 14:55 Resp 12 07/05/24 14:55 BP 101/57 07/05/24 14:55 Pulse Ox 95 07/05/24 14:55 O2 Del Method Room Air 07/05/24 14:55 07/05/24 07/05/24 07/05/24 06:59 14:59 22:59 Intake Total 1999 Balance 1999 Weight last 48 hrs Weight 97 kg Weight 97.522 kg Physical Exam 2 Narrative: General:, Restless, fidgeting in bed, speech is slurred HEENT: PERRLA, pupils bilaterally equal and reactive, pallors not present Chest: Normal vesicular breath sounds, no added sounds, equal good air entry bilaterally CVS: S1-S2 regular, no murmurs, no tachycardia, no gallops, no rubs Abdomen: Soft, nontender, no organomegaly, bowel sounds present Neuro: No focal deficits, no facial deformity, AO x3, power 5/5 in all limbs, speech is slurred Urinary Catheter Management: Dow: Cath Placed During This Visit: yes Urinary Catheter Date of Insertion: 07/05/24 Urinary Catheter Time of Insertion: 13:58 Data 07/05/24 12:06 07/05/24 12:06 Other Labs: Laboratory Results WBC 14.98 10^3/uL (3.29-11.43) H 07/05/24 12:06 RBC 3.95 10^6/uL (3.85-5.65) 07/05/24 12:06 Hgb 12.40 g/dL (11.27-16.99) 07/05/24 12:06 Hct 36.5 % (37-53) L 07/05/24 12:06 MCV 92.4 fl (82-101) 07/05/24 12:06 MCH 31.4 pg (27-33) 07/05/24 12:06 MCHC 34.0 g/dL (30-55) 07/05/24 12:06 RDW 12.4 % (12.1-15.1) 07/05/24 12:06 Plt Count 279 10^3/cmm (157-399) 07/05/24 12:06 MPV 8.9 fL (7.4-10.4) 07/05/24 12:06 Neut % (Auto) 80.7 % 07/05/24 12:06 Lymph % (Auto) 8.7 % 07/05/24 12:06 [place] % (Auto) 7.5 % 07/05/24 12:06 Eos % (Auto) 1.9 % 07/05/24 12:06 Baso % (Auto) 0.5 % 07/05/24 12:06 Neut # (Auto) 12.10 10^3/uL (1.8-7.7) H 07/05/24 12:06 Lymph # (Auto) 1.3 10^3/uL (0.8-4.8) 07/05/24 12:06 [place] # (Auto) 1.1 10^3/uL (0.2-0.9) H 07/05/24 12:06 Eos # (Auto) 0.3 10^3/uL (0.0-0.8) 07/05/24 12:06 Baso # (Auto) 0.1 10^3/uL (0.0-0.1) 07/05/24 12:06 Nucleated RBC % (auto) 0 % 07/05/24 12:06 Nucleated RBCs # 0.0 /100WBC 07/05/24 12:06 Specimen Type Arterial 07/05/24 12:17 Sample Site Brachial, right 07/05/24 12:17 ABG pH 7.35 (7.35-7.45) 07/05/24 12:17 ABG pCO2 38.7 mmHg (35-45) 07/05/24 12:17 ABG pO2 70.8 mmHg (80.0-100.0) L 07/05/24 12:17 ABG PO2/FiO2 Ratio 337 07/05/24 12:17 ABG HCO3 21.2 mmol/L (22-26) L 07/05/24 12:17 ABG Base Excess -4.1 mmol/L (-2.0-2.0) L 07/05/24 12:17 Danny Test Pos 07/05/24 12:17 Hematocrit 37.0 % (42-52) L 07/05/24 12:17 O2 Delivery Device Room air 07/05/24 12:17 FiO2 21.0 % 07/05/24 12:17 Dial Equipment Engineer ID Walci 07/05/24 12:17 Sodium 132 mmol/L (136-145) L 07/05/24 12:06 Potassium 3.8 mmol/L (3.5-5.1) 07/05/24 12:06 Chloride 93 mmol/L (98-107) L 07/05/24 12:06 Carbon Dioxide 23 mmol/L (22-29) 07/05/24 12:06 Anion Gap 19.8 (5-19) H 07/05/24 12:06 BUN 65 mg/dL (6-20) H 07/05/24 12:06 Creatinine 6.0 mg/dL (0.7-1.2) H* 07/05/24 12:06 GFR Calculation 9.9 mL/min (90-130) L 07/05/24 12:06 Glucose 100 mg/dL (65-115) 07/05/24 12:06 Calculated Osmolality 293 mOsm/kg (285-295) 07/05/24 12:06 Calcium 8.4 mg/dL (8.5-10.5) L 07/05/24 12:06 Total Bilirubin 0.6 mg/dL (0.15-1.2) 07/05/24 12:06 AST 92 U/L (0-40) H 07/05/24 12:06 ALT 48 U/L (0-41) H 07/05/24 12:06 Alkaline Phosphatase 71 U/L (40-130) 07/05/24 12:06 Total Protein 6.7 g/dL (6.6-8.7) 07/05/24 12:06 Albumin 3.9 g/dL (3.5-5.2) 07/05/24 12:06 Globulin 2.8 g/dL (1.3-4.6) 07/05/24 12:06 TSH 1.24 uIU/mL (0.27-4.20) 07/05/24 12:06 [place] 2.2 mmol/L (0.6-1.2) H* 07/05/24 12:06 Ethyl Alcohol < 10 mg/dL (0-10) 07/05/24 12:06 Hep Bs Antigen Non-reactive (Nonreactive) 07/05/24 12:06 Hep Bs Antibody < 3.5 (11.5-1000) L 07/05/24 12:06 A&P Assessment and plan (1) Acute lithium nephrotoxicity: (2) [place] toxicity: (3) Neurotoxicity: Plan 54-year-old male with 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 Patient relates he took extra doses of lithium in an effort to feel better as he was upset about his going to half-way. At this time patient is displaying signs of both nephrotoxicity and neurotoxicity. [place] level of 2.2 Creatinine at 6.0, acute renal failure precipitated by lithium toxicity. Patient is getting urgent hemodialysis, appreciate nephrology recommendations. General surgery consulted for placement of temporary HD catheter. Patient was initially hypotensive upon arrival, received 2 L of IV fluid bolus following which blood pressure has improved to 101/57. Continue maintenance IV fluids at 100 cc an hour normal saline. Check renal ultrasound to rule out any obstructive uropathy as potentially contributing Dow catheter has been inserted. Mild hyponatremia with sodium at 132. Deranged AST ALT which may be related to hypotension. Will check hepatitis screen. Negative Ethyl alcohol level Exhibiting signs of neurotoxicity by having slurred speech, incoordination, ataxia and reported incontinence at home. Hemodialysis as above [facility] was contacted for further guidance and management recommendations. Recommended to limit lithium level right after dialysis and then every 6 hours. Additionally check electrolytes including sodium and potassium, renal function every 6 hours Monitor for signs of serotonin release syndrome. If significant tremors vital signs of serotonin release syndrome are evident, to start treatment with benzodiazepines of which Valium is preferred as more fat-soluble. TSH normal at 1.24 Alcohol level undetectable Will additionally obtain urine drug screen. Continuous telemetry monitoring for development of any arrhythmias Psychiatry consult DVT prophylaxis: Heparin 5000 subcutaneously every 12 hours Full code GI prophylaxis with Protonix 40 mg p.o. daily PDMP PDMP Reviewed: Not Reviewed Attestations 2 Medical Necessity Statement*: Greater than 2 midnight admission will be needed Critical Care Time: The high probability of a clinically significant, sudden or life threatening deterioration of the patient's [renal, neuro, resp, cardiac] system(s) required my full and direct attention, intervention and personal management. The critical care time is as shown. This time is in addition to time spent performing any reported procedures but includes the following: [x] Data and vital sign review and interpretation [x] Patient assessment, examination and intervention [x] Documentation [x] Medication orders and management Critical Care Time (min): 60 Coding Level of Care Code Critical Care >/= 30 minutes Diagnoses Acute lithium nephrotoxicity T56.891A; N17.9 [place] toxicity T56.891A Neurotoxicity R29.90
[2024-07-05 15:30] LABS: Thyroid Stimulating Hormone 1.24 uIU/mL (0.27-4.20)
--- NOTE | 2024-07-05 15:58 | PC.NURSE ---
Blood pressure 75/39 upon initiation of dialysis, notified Dr. Orellana, orders given to start levophed and titrate as needed.
--- NOTE | 2024-07-05 15:59 | P.CONIM_ITS ---
Providers/Reason For Consult 2 Consulting Physician/Specialty*: Dr. Winn general surgery Reason for Consult*: Temporary dialysis catheter placement Attending Physician: Cristal Orellana MD Primary Care Provider: Shalom Moffett History of Present Illness History of Present Illness Alden Velez Jr is a 54 year old male who presents in acute renal failure secondary to lithium toxicity. Possible is requesting temporary dialysis catheter placement for emergent dialysis. Medications/Allergies Home Medications ?Medication ?Instructions ?Recorded ?Confirmed ?Last Taken ?Type gabapentin 300 mg capsule 300 mg PO BEDTIME 30 days #3 0 caps 06/29/24 07/05/24 Unknown Rx lisinopril 20 mg tablet 20 mg PO DAILY 30 days #30 t abs 06/29/24 07/05/24 Unknown Rx lithium carbonate 600 mg capsule 600 mg PO 0900,2100 3 0 days #60 06/29/24 07/05/24 Unknown Rx caps meloxicam 15 mg tablet 15 mg PO DAILY 30 days #30 t abs 06/29/24 07/05/24 Unknown Rx Allergies Allergy/AdvReac Type Severity Reaction Status Date / Time adhesive tape Allergy ALGY-Bliste Verified 07/05/24 12:06 r Current Medications Generic Name Dose Route Start Last Admin Trade Name Freq PRN Reason Stop Dose Admin Sodium Chloride 1,000 mls @ 125 mls/hr 07/05/24 15:00 07/05/24 15:03 Sodium Chloride 0.9% IV 75 mls/hr .Q8H HAILEY Administration PFSH Acute 2 PFSH: Medical History Osteoarthritis of knees, bilateral Social History Smoking and tobacco/nicotine status: current every day tobacco/nicotine user cigarettes Packs smoked per day: 1 Vitals/I&O/Wt Last Vital Signs Temp 98.2 F 07/05/24 14:55 Pulse 85 07/05/24 14:55 Resp 12 07/05/24 14:55 BP 101/57 07/05/24 14:55 Pulse Ox 95 07/05/24 14:55 O2 Del Method Room Air 07/05/24 14:55 07/05/24 07/05/24 07/05/24 06:59 14:59 22:59 Intake Total 1999 Balance 1999 Weight last 48 hrs Weight 213 lb 13.574 oz Weight 215 lb Physical Exam 2 Narrative: Chest: Unlabored breathing room air. No lymphadenopathy. Heart: Regular rate and rhythm. Abdomen: Soft, nontender, nondistended. No masses or lymphadenopathy. Urinary Catheter Management: Dow: Cath Placed During This Visit: yes Urinary Catheter Date of Insertion: 07/05/24 Urinary Catheter Time of Insertion: 13:58 Data 07/06/24 03:33 07/06/24 03:33 A&P Assessment and plan (1) Acute lithium nephrotoxicity: Plan 54-year-old male whom surgery was consulted for temporary dialysis catheter placement. Discussed risk and benefits and patient agrees to proceed with temporary dialysis catheter placement. PDMP PDMP Reviewed: Not Reviewed Coding Level of Care Code 41820 Diagnoses Acute lithium nephrotoxicity T56.891A; N17.9
--- NOTE | 2024-07-05 15:59 | PM.ACPR ---
Procedure/Consent Consent: Consent for Procedure: Consent obtained from patient Procedure Narrative: Discussed risks and benefits of temporary dialysis catheter placement. Patient agreed to proceed. The right groin was prepped and draped in the usual sterile fashion. Ultrasound was used to identify the right common femoral vein. Local infiltration using 1% lidocaine was carried out. Under ultrasound guidance, a finder needle was used to access the right common femoral vein. A guidewire was threaded through the finder needle. Wire location the right common femoral vein was confirmed using ultrasound. I then proceeded to serially dilate the tract. A 20 cm temporary dialysis catheter was placed using the Seldinger technique. The wire was removed. I was able to flush and draw blood easily from both lumens. Catheter was sutured in place and a sterile dressing was applied. Catheter is ready for immediate use.
[2024-07-05] MEDS: norepinephrine 4 MG/250 ML BAG 7.5 MG IV (16:00)
[2024-07-05 16:15] LABS: Amphetamines Screen Urine Positive (Negative); Barbiturates Screen Urine Negative (Negative); Benzodiazepines Screen Urine Negative (Negative); Cocaine Screen Urine Negative (Negative); Opiate Screen Urine Negative (Negative); PCP Screen Urine Negative (Negative); THC Screen Urine Negative (Negative)
--- NOTE | 2024-07-05 16:19 | PC.NURSE ---
Protonix not administered during patients dialysis treatment.
[2024-07-05] MEDS: lidocaine 2% Urojet 20 mL TOPICAL (16:22)
[2024-07-05] MEDS: morphine 4 mg/mL SDV 1 mL 2 MG IVP (17:47)
[2024-07-05 18:08] LABS: Acetaminophen < 5.0 ug/mL (10-30); Salicylate < 0.3 mg/dL (3-10)
[2024-07-05] MEDS: heparin 5,000 unit/mL INJ 1 mL 5000 UNIT SUBCUT (18:25)
--- NOTE | 2024-07-05 20:11 | PC.HD ---
Initial dialysis treatment via new right femoral cath. Pt hypotensive pre-treatment, required Levophed throughout treatment, max 6mcg/min. Pt had much difficulty lying still causing frequent high pressure alarms. This masked the fact that lines were clotting in spite of heparin and venous side blood unable to be returned to pt. Treatment terminated at this point [address] Richter's instructions. [place] level drawn prior to flushing catheter and given to pt's nurse to give to Lab.
[2024-07-05 20:19] LABS: Lithium 1.1 mmol/L (0.6-1.2)
[2024-07-05 20:33] LABS: Alanine Aminotransferase 47 U/L (0-41); Albumin Level 3.8 g/dL (3.5-5.2); Alkaline Phosphatase 67 U/L (40-130); Anion Gap 17.2 (5-19); Aspartate Amino Transferase 83 U/L (0-40); Blood Urea Nitrogen 35 mg/dL (6-20); Calcium 8.7 mg/dL (8.5-10.5); Carbon Dioxide 23 mmol/L (22-29); Chloride 102 mmol/L (98-107); Creatinine Clr Calc Pharmacy 40.0009; Globulin 2.4 g/dL (1.3-4.6); Glomerular Filtration Rate 27.3 mL/min (90-130); Glucose 108 mg/dL (65-115); Osmolality Calculated 297 mOsm/kg (285-295); Potassium 3.2 mmol/L (3.5-5.1); Sodium 139 mmol/L (136-145); Total Bilirubin 0.5 mg/dL (0.15-1.2); Total Protein 6.2 g/dL (6.6-8.7)
--- NOTE | 2024-07-05 21:23 | P.PN_ITS ---
Subjective 2 Subjective: Patient mated with lithium toxicity was overheard by staff talking to his who is going to senior care tomorrow for drug possession. Patient states that she is going to senior care over drugs and that he had and although it was not a big amount they are both on probation so this is probation violation for her and she is going away for 4 months. Patient states that he was taking lithium to try and feel better but was not taking it to hurt himself. He states he does not feel hopeless or suicidal and does not want to . Vitals/I&O/Wt Last Vital Signs Temp 97.9 F 07/05/24 20:02 Pulse 87 07/05/24 20:02 Resp 16 07/05/24 20:02 BP 134/75 07/05/24 20:02 Pulse Ox 99 07/05/24 17:47 O2 Del Method Room Air 07/05/24 16:29 07/05/24 07/05/24 07/05/24 06:59 14:59 22:59 Intake Total 1999 570.000 / 2570.000 Output Total 1524 / 1524 Balance 1999 -954.000 / 1046.000 Weight last 48 hrs Weight 98.5 kg Weight 97 kg Weight 97.522 kg Physical Exam 2 Urinary Catheter Management: Dow: Cath Placed During This Visit: yes Reason for Continuing Indwelling Catheter: Accurate Measurement of Urinary Output in Critically Ill Patients Urinary Catheter Date of Insertion: 07/05/24 Urinary Catheter Time of Insertion: 13:58 Data 07/05/24 12:06 07/05/24 18:15 A&P Assessment and plan (1) [place] toxicity: Patient remains very tremulous in the ICU I was unable to examine the patient he had urgent need to have bowel movement and was moved to the bedside commode. (2) Depression: Patient admits to depression but denies suicidal ideation he states he is not suicidal and does not feel like things are hopeless or that he wants to . I was asked to place him on a 96-hour hold because his 96-hour hold papers were not served to him. Not having seen the patient I came and saw him and at this time he denies suicidal ideation and and does not appear actively suicidal to me PDMP PDMP Reviewed: Not Reviewed Attestations 2 Medical Necessity Statement*: Will remain in the hospital for lithium toxicity ICU Coding Level of Care Code Acute Code for Chg Fwd Diagnoses [place] toxicity T56.891A Depression F32.A Time Spent (min) 25
[2024-07-05] MEDS: ondansetron 2 mg/ML SDV 2 mL 4 MG IVP (22:27)
[2024-07-06] VITALS (69 sets, daily range): BP systolic 86–172; BP diastolic 42–141; PULSE 78–96; RESP 11–26; TEMP 36.8–37.3; O2SAT 90–100; BMI 32.1
[2024-07-06] MEDS: sodium chloride 0.9% 1,000 ML 125 ML IV ×2 (00:17→07:57)
[2024-07-06 04:24] LABS: Basophils # 0.1 10^3/uL (0.0-0.1); Basophils % 0.6 %; Eosinophils # 0.3 10^3/uL (0.0-0.8); Eosinophils % 2.9 %; Hematocrit 34.8 % (37-53); Lymphocytes # 1.5 10^3/uL (0.8-4.8); Lymphocytes % 17.5 %; Mean Corpuscular HGB Conc 32.8 g/dL (30-55); Mean Corpuscular Hemoglobin 31.3 pg (27-33); Mean Corpuscular Volume 95.6 fl (82-101); Mean Platelet Volume 9.1 fL (7.4-10.4); Monocytes # 0.8 10^3/uL (0.2-0.9); Monocytes % 9.6 %; Neutrophils # 5.98 10^3/uL (1.8-7.7); Neutrophils % 69.1 %; Nucleated Red Blood Cells % 0 %; Platelet Count 263 10^3/cmm (157-399); Red Blood Count 3.64 10^6/uL (3.85-5.65); Red Cell Distribution Width 12.3 % (12.1-15.1); White Blood Count 8.65 10^3/uL (3.29-11.43)
[2024-07-06] MEDS: diazePAM 2 mg Tablet PO (04:31)
[2024-07-06] MEDS: heparin 5,000 unit/mL INJ 1 mL 5000 UNIT SUBCUT ×2 (04:32→15:07)
[2024-07-06 04:45] LABS: Alanine Aminotransferase 60 U/L (0-41); Albumin Level 3.7 g/dL (3.5-5.2); Alkaline Phosphatase 78 U/L (40-130); Anion Gap 12.9 (5-19); Aspartate Amino Transferase 86 U/L (0-40); Blood Urea Nitrogen 31 mg/dL (6-20); Calcium 8.5 mg/dL (8.5-10.5); Carbon Dioxide 24 mmol/L (22-29); Chloride 106 mmol/L (98-107); Creatinine Clr Calc Pharmacy 52.6327; Globulin 2.6 g/dL (1.3-4.6); Glomerular Filtration Rate 37.4 mL/min (90-130); Glucose 93 mg/dL (65-115); Osmolality Calculated 294 mOsm/kg (285-295); Potassium 3.9 mmol/L (3.5-5.1); Sodium 139 mmol/L (136-145); Total Bilirubin 0.3 mg/dL (0.15-1.2); Total Protein 6.3 g/dL (6.6-8.7)
[2024-07-06 04:56] LABS: Lithium 1.3 mmol/L (0.6-1.2)
--- NOTE | 2024-07-06 06:21 | XRR_ITS ---
PROCEDURE INFORMATION: Exam: XR Chest Exam date and time: 07/06/2024 6:49 AM Age: 54 years old Clinical indication: Device placement; Picc; Additional info: Post picc insertion, isai placing in icu 10. Should be ready at 0700 TECHNIQUE: Imaging protocol: Radiologic exam of the chest. Views: 1 view. COMPARISON: CR XR chest 1V portable [id number] 03/14/2022 10:32 AM FINDINGS: Tubes, catheters and devices: Right sided PICC line tip at cavoatrial junction. Lungs: The pulmonary vessels are within normal limits. The lungs are clear. Pleural spaces: No pneumothorax. Heart/Mediastinum: The cardiomediastinal silhouette is within normal limits. Bones/joints: Chronic left clavicle deformity XR/XR chest 1V portable [id number] IMPRESSION: 1. Right sided PICC line tip at cavoatrial junction. 2. No acute pulmonary finding.
--- NOTE | 2024-07-06 07:24 | PICC.NOTE ---
Triple lumen PICC placed to right basilic vein. Referred to vascular access nurse for PICC placement due to poor access and provider request. Risks and benefits discussed and informed consent obtained from pt. Right arm assessed with right basilic vein measuring 4.0 mm, straight, and apparent best choice for placement. Using sterile technique and MST, right basilic vein accessed x 1 stick. Mid-arm circumference measured 10 cm from right AC 33 cm. Trimmed cath 44 cm with 0 cm external length noted. CXR shows tip in cavoatrial junction, in good position for use per radiologist. Line secured with stat-lock. Insertion site covered with Biopatch and TSM. Report given to bedside nurse, CRISTINA Kurtz.
--- NOTE | 2024-07-06 07:44 | P.PN_ITS ---
Subjective 2 Subjective: Right groin temporary dialysis catheter functional Vitals/I&O/Wt Last Vital Signs Temp 98.4 F 07/06/24 04:00 Pulse 83 07/06/24 06:00 Resp 19 H 07/06/24 04:15 BP 116/71 07/06/24 04:35 Pulse Ox 97 07/06/24 04:15 O2 Del Method Room Air 07/05/24 16:29 07/05/24 07/06/24 07/06/24 22:59 06:59 14:59 Intake Total 570.000 / 2570.000 938.125 / 3508.125 Output Total 1524 / 1524 1400 / 2924 Balance -954.000 / 1046.000 -461.875 / 584.125 Weight last 48 hrs Weight 217 lb 2.485 oz Weight 217 lb 2.485 oz Weight 213 lb 13.574 oz Weight 215 lb Physical Exam 2 Narrative: Chest: Unlabored breathing room air. No lymphadenopathy. Heart: Regular rate and rhythm. Abdomen: Soft, nontender, nondistended. No masses or lymphadenopathy. Right groin temporary dialysis catheter functional Urinary Catheter Management: Dow: Cath Placed During This Visit: yes Reason for Continuing Indwelling Catheter: Accurate Measurement of Urinary Output in Critically Ill Patients Urinary Catheter Date of Insertion: 07/05/24 Urinary Catheter Time of Insertion: 13:58 Data 07/06/24 03:33 07/06/24 03:33 A&P Assessment and plan (1) [place] toxicity: (2) Acute kidney injury: Plan 54-year-old male status post temporary dialysis catheter placement. Catheter is working. PDMP PDMP Reviewed: Not Reviewed Attestations 2 Medical Necessity Statement*: N/A Coding Level of Care Code 21578 Diagnoses [place] toxicity T56.891A Acute kidney injury N17.9
[2024-07-06] MEDS: pantoprazole DR 40 mg Tablet PO (07:56)
[2024-07-06 09:51] LABS: Alanine Aminotransferase 57 U/L (0-41); Albumin Level 3.6 g/dL (3.5-5.2); Alkaline Phosphatase 68 U/L (40-130); Anion Gap 12.9 (5-19); Aspartate Amino Transferase 68 U/L (0-40); Blood Urea Nitrogen 26 mg/dL (6-20); Calcium 8.8 mg/dL (8.5-10.5); Carbon Dioxide 23 mmol/L (22-29); Chloride 105 mmol/L (98-107); Creatinine Clr Calc Pharmacy 76.9248; Globulin 2.3 g/dL (1.3-4.6); Glucose 92 mg/dL (65-115); Osmolality Calculated 288 mOsm/kg (285-295); Potassium 3.9 mmol/L (3.5-5.1); Sodium 137 mmol/L (136-145); Total Bilirubin 0.4 mg/dL (0.15-1.2); Total Protein 5.9 g/dL (6.6-8.7)
[2024-07-06 09:57] LABS: Lithium 1.2 mmol/L (0.6-1.2)
--- NOTE | 2024-07-06 13:00 | PM.PN ---
Subjective Subjective: Patient was placed on a 96-hour hold yesterday at 1543. An affidavit for the 96-hour hold was signed by me on July 05, 2024 at around 4:30 PM. This afternoon I was informed that patient had not been placed on a 96-hour hold in spite of the affidavit being signed. Patient had indicated to me, as stated in the affidavit, that he had taken excess doses of lithium. He recognized the signs of lithium neurotoxicity and presented into the emergency room. While discussing his condition with him, I mentioned to the patient that the lithium had shut down his kidneys to which his response was good . Thereafter I discussed initiation of hemodialysis to which the patient was agreeable and wished to proceed. However after giving consent he asked me what would happen if he did not undergo hemodialysis. I told him he would likely from renal failure if he did not undergo hemodialysis. To which his response was how long would it take to . On asking him specifically why he asked that question, he stated that he wanted to go home to be with his who was to be incarcerated the next morning. We then discussed his coming in to visit him instead so that he could undergo life-saving treatment to which the patient consented. Psychiatry consult was placed after my discussion with the patient and after discussion with Dr. Olsen we agreed that patient would benefit from a 96-hour hold. In reviewing his past history, patient was recently discharged from the hospital after being here for homicidal and suicidal ideation. He had different answers for me and the ERP when asked how many medications he has taken. In my opinion patient is at high risk of self-harm if he was to be be discharged or wanted to leave AMA in his current state, therefore a 96 hr hold was placed yesterday. Patient is clinically improving today. Creatinine is down to 1.3. He has had 2500 cc of urine output. [place] level is down to 1.1. Medications: Reviewed: Yes Vitals/I&O/Wt Last Vital Signs Temp 98.4 F 07/06/24 04:00 Pulse 88 07/06/24 15:00 Resp 19 H 07/06/24 04:15 BP 113/63 07/06/24 12:00 Pulse Ox 95 07/06/24 15:00 O2 Del Method Room Air 07/05/24 16:29 07/06/24 07/06/24 07/06/24 06:59 14:59 22:59 Intake Total 938.125 / 3508.125 958.333 / 958.333 Output Total 1400 / 2924 Balance -461.875 / 584.125 958.333 / 958.333 Weight last 48 hrs Weight 98.5 kg Weight 98.5 kg Weight 97 kg Weight 97.522 kg Physical Exam Narrative: General:,Awake, alert and oriented HEENT: PERRLA, pupils bilaterally equal and reactive, pallors not present Chest: Normal vesicular breath sounds, no added sounds, equal good air entry bilaterally CVS: S1-S2 regular, no murmurs, no tachycardia, no gallops, no rubs Abdomen: Soft, nontender, no organomegaly, bowel sounds present Neuro: No focal deficits, no facial deformity, AO x3, power 5/5 in all limbs, speech is slurred but more clear compared to yesterday Urinary Catheter Management: Dow: Cath Placed During This Visit: yes Reason for Continuing Indwelling Catheter: Accurate Measurement of Urinary Output in Critically Ill Patients Urinary Catheter Date of Insertion: 07/05/24 Urinary Catheter Time of Insertion: 13:58 Data 07/06/24 03:33 07/06/24 15:02 A&P Assessment and plan (1) [place] toxicity: (2) Depression: (3) Acute lithium nephrotoxicity: (4) Neurotoxicity: Plan 54-year-old male with 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 Patient relates he took extra doses of lithium in an effort to feel better as he was upset about his going to [place] [facility]. At this time patient is displaying signs of both nephrotoxicity and neurotoxicity. [place] level of 2.2 Creatinine at 6.0, acute renal failure precipitated by lithium toxicity. Patient is getting urgent hemodialysis, appreciate nephrology recommendations. General surgery consulted for placement of temporary HD catheter. Patient was initially hypotensive upon arrival, received 2 L of IV fluid bolus following which blood pressure has improved to 101/57. Continue maintenance IV fluids at 100 cc an hour normal saline. Check renal ultrasound to rule out any obstructive uropathy as potentially contributing Dow catheter has been inserted. Mild hyponatremia with sodium at 132. Deranged AST ALT which may be related to hypotension. Will check hepatitis screen. Negative Ethyl alcohol level Exhibiting signs of neurotoxicity by having slurred speech, incoordination, ataxia and reported incontinence at home. Hemodialysis as above [facility] poison [facility] was contacted for further guidance and management recommendations. Recommended to limit lithium level right after dialysis and then every 6 hours. Additionally check electrolytes including sodium and potassium, renal function every 6 hours Monitor for signs of serotonin release syndrome. If significant tremors vital signs of serotonin release syndrome are evident, to start treatment with benzodiazepines of which Valium is preferred as more fat-soluble. TSH normal at 1.24 Alcohol level undetectable Will additionally obtain urine drug screen. Continuous telemetry monitoring for development of any arrhythmias Psychiatry consult DVT prophylaxis: Heparin 5000 subcutaneously every 12 hours Full code GI prophylaxis with Protonix 40 mg p.o. daily July 06, 2024 Clinically he appears to be improving today. His speech is mildly slurred however better compared to yesterday. Less tremulous. Creatinine is improving at 1.9. Urine output over 2500 cc. Requesting removal of Dow which is reasonable. He may start a diet today. [place] level down to 1.1. Will continue to trend lithium level and CMP over the next 24 hours to ensure clinical stability and monitor for rebound lithium toxicity PDMP PDMP Reviewed: Not Reviewed Attestations Medical Necessity Statement*: continue dmonitoring for lithium toxicity Coding Level of Care Code Acute Code for Chg Fwd Diagnoses [place] toxicity T56.891A Depression F32.A Acute lithium nephrotoxicity T56.891A; N17.9 Neurotoxicity R29.90
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
--- NOTE | 2024-07-06 15:11 | PM.PN ---
Subjective Subjective: denies any complaints Medications: Reviewed: Yes Vitals/I&O/Wt Last Vital Signs Temp 98.4 F 07/06/24 04:00 Pulse 79 07/06/24 12:00 Resp 19 H 07/06/24 04:15 BP 113/63 07/06/24 12:00 Pulse Ox 94 07/06/24 12:00 O2 Del Method Room Air 07/05/24 16:29 07/06/24 07/06/24 07/06/24 06:59 14:59 22:59 Intake Total 938.125 / 3508.125 958.333 / 958.333 Output Total 1400 / 2924 Balance -461.875 / 584.125 958.333 / 958.333 Weight last 48 hrs Weight 98.5 kg Weight 98.5 kg Weight 97 kg Weight 97.522 kg Physical Exam Narrative: awake, alert , no distress PEERLA S1S2 RRR per report Lungs clear per report Abd - soft , non tender , no distress Urinary Catheter Management: Dow: Cath Placed During This Visit: yes Reason for Continuing Indwelling Catheter: Accurate Measurement of Urinary Output in Critically Ill Patients Urinary Catheter Date of Insertion: 07/05/24 Urinary Catheter Time of Insertion: 13:58 Data 07/06/24 03:33 07/06/24 09:18 A&P Assessment and plan (1) Acute kidney injury: 1. [place] toxicity : due to medication overdose. Pt also has severe DANAE on presentation S/P IVFs , s/p Temp HD catheter placement and s/p emergent HD on wed Assess daily for HD needs , holding off HD today check lithium level daily , last level 1.2 2. DANAE : likely pre renal and lithium toxicity, NSAID use , monitor , UOP picked up 3. HTN : Hold lisonopril (2) [place] toxicity: PDMP PDMP Reviewed: Not Reviewed Attestations Medical Necessity Statement*: per [facility] Coding Level of Care Code Acute Code for [facility] Diagnoses Acute kidney injury N17.9 [place] toxicity T56.891A
[2024-07-06 15:30] LABS: Alanine Aminotransferase 53 U/L (0-41); Albumin Level 3.5 g/dL (3.5-5.2); Alkaline Phosphatase 71 U/L (40-130); Anion Gap 9.7 (5-19); Aspartate Amino Transferase 58 U/L (0-40); Blood Urea Nitrogen 23 mg/dL (6-20); Calcium 8.9 mg/dL (8.5-10.5); Carbon Dioxide 27 mmol/L (22-29); Chloride 107 mmol/L (98-107); Creatinine Clr Calc Pharmacy 90.9111; Globulin 2.5 g/dL (1.3-4.6); Glomerular Filtration Rate 70.3 mL/min (90-130); Glucose 144 mg/dL (65-115); Osmolality Calculated 296 mOsm/kg (285-295); Potassium 3.7 mmol/L (3.5-5.1); Sodium 140 mmol/L (136-145); Total Bilirubin 0.3 mg/dL (0.15-1.2)
[2024-07-06 15:33] LABS: Lithium 1.1 mmol/L (0.6-1.2)
--- NOTE | 2024-07-06 16:29 | PC.NURSE ---
Patient placed on a 96 hour hold. 96 hour hold rights read and reviewed with patient. Sallie EVANS present during reading of rights. Patient stated [facility] knew [facility]. That's fine, I am fine with it. I will keep my mouth shut during the 96 hour hold then go home. I will need a ride when i go home. This nurse continued to read 96 hour hold rights to patient. Patient verbalized understandings and copy of rights given to patient.
--- NOTE | 2024-07-06 18:19 | PC.NURSE ---
patient belonging placed in locker number 6
[2024-07-06 22:54] LABS: Alanine Aminotransferase 52 U/L (0-41); Albumin Level 3.7 g/dL (3.5-5.2); Alkaline Phosphatase 75 U/L (40-130); Anion Gap 10.2 (5-19); Aspartate Amino Transferase 49 U/L (0-40); Blood Urea Nitrogen 20 mg/dL (6-20); Calcium 9.3 mg/dL (8.5-10.5); Carbon Dioxide 28 mmol/L (22-29); Chloride 107 mmol/L (98-107); Creatinine Clr Calc Pharmacy 90.9111; Globulin 2.5 g/dL (1.3-4.6); Glomerular Filtration Rate 70.3 mL/min (90-130); Glucose 121 mg/dL (65-115); Osmolality Calculated 296 mOsm/kg (285-295); Potassium 4.2 mmol/L (3.5-5.1); Sodium 141 mmol/L (136-145); Total Bilirubin 0.2 mg/dL (0.15-1.2); Total Protein 6.2 g/dL (6.6-8.7)
--- NOTE | 2024-07-06 23:37 | PC.NURSE ---
Telephone order from Dr. Reddy for intracath heparin for dialysis port.
[2024-07-07] VITALS (13 sets, daily range): BP systolic 118–161; BP diastolic 69–98; PULSE 70–82; RESP 12–19; TEMP 36.7–37.1; O2SAT 95–100; BMI 32.0
[2024-07-07] MEDS: heparin, porcine 1,000 unit/mL INJ 10 mL 500 UNIT INTRACATH (00:10)
[2024-07-07] MEDS: heparin 5,000 unit/mL INJ 1 mL 5000 UNIT SUBCUT (04:15)
--- NOTE | 2024-07-07 07:01 | PM.PN ---
Subjective Subjective: no new c/o Medications: Reviewed: Yes Vitals/I&O/Wt Last Vital Signs Temp 98.7 F 07/07/24 04:21 Pulse 82 07/07/24 06:00 Resp 19 H 07/07/24 04:21 BP 132/80 07/07/24 04:21 Pulse Ox 96 07/07/24 04:21 O2 Del Method Room Air 07/07/24 04:21 07/06/24 07/07/24 07/07/24 22:59 06:59 14:59 Intake Total 1480 / 2438.333 1480 / 3918.333 Output Total 1200 / 1200 Balance 280 / 9253.812 5095 / 2718.333 Weight last 48 hrs Weight 98.5 kg Weight 98.5 kg Weight 98.5 kg Weight 97 kg Weight 97.522 kg Physical Exam Narrative: awake, alert , no distress PEERLA S1S2 RRR per report Lungs clear per report Abd - soft , non tender , no distress Urinary Catheter Management: Dow: Cath Placed During This Visit: yes Reason for Continuing Indwelling Catheter: Accurate Measurement of Urinary Output in Critically Ill Patients Urinary Catheter Date of Insertion: 07/05/24 Urinary Catheter Time of Insertion: 13:58 Data 07/06/24 03:33 07/06/24 22:20 A&P Assessment and plan (1) Acute kidney injury: 1. [place] toxicity : due to medication overdose. Pt also has severe DANAE on presentation S/P IVFs , s/p Temp HD catheter placement and s/p emergent HD on wed hold off further HD , Cr improving check lithium level daily , last level 1.1 2. DANAE : likely pre renal and lithium toxicity, NSAID use , monitor , UOP picked up 3. HTN : Hold lisonopril (2) [place] toxicity: PDMP PDMP Reviewed: Not Reviewed Attestations Medical Necessity Statement*: per [facility] Coding Level of Care Code Acute Code for [facility] Diagnoses Acute kidney injury N17.9 [place] toxicity T56.891A
[2024-07-07 07:10] LABS: Alanine Aminotransferase 54 U/L (0-41); Albumin Level 3.5 g/dL (3.5-5.2); Alkaline Phosphatase 73 U/L (40-130); Anion Gap 12.1 (5-19); Aspartate Amino Transferase 46 U/L (0-40); Blood Urea Nitrogen 17 mg/dL (6-20); Calcium 9.3 mg/dL (8.5-10.5); Carbon Dioxide 25 mmol/L (22-29); Chloride 105 mmol/L (98-107); Creatinine Clr Calc Pharmacy 111.1136; Globulin 2.7 g/dL (1.3-4.6); Glomerular Filtration Rate 88.6 mL/min (90-130); Glucose 125 mg/dL (65-115); Osmolality Calculated 289 mOsm/kg (285-295); Potassium 4.1 mmol/L (3.5-5.1); Sodium 138 mmol/L (136-145); Total Bilirubin 0.2 mg/dL (0.15-1.2); Total Protein 6.2 g/dL (6.6-8.7)
[2024-07-07 07:15] LABS: Lithium 0.9 mmol/L (0.6-1.2)
[2024-07-07] MEDS: acetaminophen 325 mg Tablet 650 MG PO (09:30)
[2024-07-07] MEDS: pantoprazole DR 40 mg Tablet PO (09:31)
--- NOTE | 2024-07-07 12:34 | PC.NURSE ---
Hemodialysis catheter removed per order. Line intact. Pressure applied to site x 20 minutes. Pt tolerated well. Area surrounding skin soft and non-tender. Pt instructed to lie flat without moving right leg. Pt indicated understanding.
--- NOTE | 2024-07-07 13:00 | PC.NURSE ---
Pt rolled on side to use urinal and site began bleeding. Pressure applied to site x 20 minutes. Pt tolerated well. Area surrounding site remains unremarkable, soft and non-tender. Education reinforced regarding lying flat and keeping right leg still. Indicated understanding.
--- NOTE | 2024-07-07 13:10 | PC.NURSE ---
Client repositioned self. Site began bleeding. Pressure applied x 25 minutes. Sandbag applied. Educated pt regarding asking for assistance to repostion or use urinal. Fem Stop at bedside in case pt bleeds again.
[2024-07-07 14:37] LABS: Alanine Aminotransferase 59 U/L (0-41); Albumin Level 3.8 g/dL (3.5-5.2); Alkaline Phosphatase 74 U/L (40-130); Anion Gap 12.2 (5-19); Aspartate Amino Transferase 44 U/L (0-40); Blood Urea Nitrogen 13 mg/dL (6-20); Calcium 9.8 mg/dL (8.5-10.5); Carbon Dioxide 25 mmol/L (22-29); Chloride 104 mmol/L (98-107); Creatinine Clr Calc Pharmacy 125.0028; Globulin 2.7 g/dL (1.3-4.6); Glomerular Filtration Rate 101.5 mL/min (90-130); Glucose 129 mg/dL (65-115); Osmolality Calculated 286 mOsm/kg (285-295); Potassium 4.2 mmol/L (3.5-5.1); Sodium 137 mmol/L (136-145); Total Bilirubin 0.2 mg/dL (0.15-1.2); Total Protein 6.5 g/dL (6.6-8.7)
[2024-07-07 14:42] LABS: Lithium 0.8 mmol/L (0.6-1.2)
--- NOTE | 2024-07-07 14:45 | PC.NURSE ---
Pt requested assistance urinating. Tolerated well. Hemodialysis catheter incision site remains unchanged. Area surrounding site soft and non-tender.
--- NOTE | 2024-07-07 16:12 | PM.PN ---
Subjective Subjective: [place] level is now down to 0.9. DANAE remains resolved. Patient is urinating well over 2 L urine output today. His speech is much better. Medications: Reviewed: Yes Vitals/I&O/Wt Last Vital Signs Temp 98.7 F 07/07/24 04:21 Pulse 72 07/07/24 14:00 Resp 13 07/07/24 14:00 BP 159/88 07/07/24 14:00 Pulse Ox 100 07/07/24 14:00 O2 Del Method Room Air 07/07/24 09:35 07/07/24 07/07/24 07/07/24 06:59 14:59 22:59 Intake Total 1480 / 3918.333 120 / 120 Output Total 650 / 650 Balance 1480 / 2718.333 -530 / -530 Weight last 48 hrs Weight 98.5 kg Weight 98.5 kg Weight 98.5 kg Physical Exam Narrative: General:,Awake, alert and oriented HEENT: PERRLA, pupils bilaterally equal and reactive, pallors not present Chest: Normal vesicular breath sounds, no added sounds, equal good air entry bilaterally CVS: S1-S2 regular, no murmurs, no tachycardia, no gallops, no rubs Abdomen: Soft, nontender, no organomegaly, bowel sounds present Neuro: No focal deficits, no facial deformity, AO x3, power 5/5 Urinary Catheter Management: Dow: Cath Placed During This Visit: yes Reason for Continuing Indwelling Catheter: Accurate Measurement of Urinary Output in Critically Ill Patients Urinary Catheter Date of Insertion: 07/05/24 Urinary Catheter Time of Insertion: 13:58 Data 07/06/24 03:33 07/07/24 14:01 A&P Assessment and plan (1) [place] toxicity: (2) Depression: (3) Acute lithium nephrotoxicity: (4) Neurotoxicity: Plan 54-year-old male with 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 Patient relates he took extra doses of lithium in an effort to feel better as he was upset about his going to intermediate. At this time patient is displaying signs of both nephrotoxicity and neurotoxicity. [place] level of 2.2 Creatinine at 6.0, acute renal failure precipitated by lithium toxicity. Patient is getting urgent hemodialysis, appreciate nephrology recommendations. General surgery consulted for placement of temporary HD catheter. Patient was initially hypotensive upon arrival, received 2 L of IV fluid bolus following which blood pressure has improved to 101/57. Continue maintenance IV fluids at 100 cc an hour normal saline. Check renal ultrasound to rule out any obstructive uropathy as potentially contributing Dow catheter has been inserted. Mild hyponatremia with sodium at 132. Deranged AST ALT which may be related to hypotension. Will check hepatitis screen. Negative Ethyl alcohol level Exhibiting signs of neurotoxicity by having slurred speech, incoordination, ataxia and reported incontinence at home. Hemodialysis as above [facility] poison center was contacted for further guidance and management recommendations. Recommended to limit lithium level right after dialysis and then every 6 hours. Additionally check electrolytes including sodium and potassium, renal function every 6 hours Monitor for signs of serotonin release syndrome. If significant tremors vital signs of serotonin release syndrome are evident, to start treatment with benzodiazepines of which Valium is preferred as more fat-soluble. TSH normal at 1.24 Alcohol level undetectable Will additionally obtain urine drug screen. Continuous telemetry monitoring for development of any arrhythmias Psychiatry consult DVT prophylaxis: Heparin 5000 subcutaneously every 12 hours Full code GI prophylaxis with Protonix 40 mg p.o. daily July 06, 2024 Clinically he appears to be improving today. His speech is mildly slurred however better compared to yesterday. Less tremulous. Creatinine is improving at 1.9. Urine output over 2500 cc. Requesting removal of Dow which is reasonable. He may start a diet today. [place] level down to 1.1. Will continue to trend lithium level and CMP over the next 24 hours to ensure clinical stability and monitor for rebound lithium toxicity July 07, 2024 Clinically appears to be better. DANAE has resolved. He has good urine output. Diuresing well. [place] level now at 0.9. Discussed with poison center. And stop serial trend of lithium levels now that level is under 1.0. Remove HD catheter. Remove PICC line. Patient is stable to be transferred from family medicine standpoint to the Neuropsych Unit. He is complaining of worsening arthritis pain over the left knee. He has longstanding arthritis and usually uses a heat pack. Today uses a heat pad did not appear to relieve his pain significantly. Will start him on hydrocodone APAP. No obvious swelling or signs of cellulitis are noted over the left knee at this time. Outpatient referral will be provided for orthopedics to consider joint replacement. Continue to hold lisinopril given recent DANAE. If needed with amlodipine for blood pressure control. PDMP PDMP Reviewed: Not Reviewed Attestations Medical Necessity Statement*: Stable for transfer from ICU to Neuropsych Unit today. Coding Level of Care Code Acute Code for Chg Fwd Diagnoses [place] toxicity T56.891A Depression F32.A Acute lithium nephrotoxicity T56.891A; N17.9 Neurotoxicity R29.90
[2024-07-07] MEDS: HYDROcodone-acetaminophen 5-325 mg Tablet 1 TAB PO ×2 (16:37→20:35)
--- NOTE | 2024-07-07 18:53 | PC.NURSE ---
Pt ambulated in hallway approximately 200 feet. Tolerated well. HD insertion site remains soft and non tender. No hematoma noted.
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
--- NOTE | 2024-07-07 19:00 | PC.NURSE ---
Knee Pain: Pt states the 8/10 pain in his bilateral knees is chronic and caused by arthritis.
--- NOTE | 2024-07-07 19:22 | P.NPUPN_ITS ---
Subjective NPU 2 Subjective: Patient presented today reporting that he is doing fine. He spent most of the time trying to convince this sports book writer that he was not trying to kill himself. There was nothing that he said today that gave any decreased to any concerns about this being a suicide attempt. We discussed the thinking behind disposition and the fact that it we cannot know what he is thinking we can only know the outcome which was a significant overdose on lithium leading to us needing to change his medication prior to discharge. We discussed the risks, benefits and alternatives of initiating Abilify and he understood and agreed to proceed as is documented in this note. Mental Status Exam 2 MSE Comments: This is an overweight versus obese male in hospital gown with limited grooming and eye contact. No abnormal movements. Mostly cooperative with exam in mild distress. Speech was slightly decreased rate and volume. Mood described as fine, affect mostly congruent. Thought process organized. Thought content: Patient denied suicidal or homicidal ideation however a simple conversation about the exact events surrounding the ingestion of the pills leaves great suspicion about the truthfulness of his current narrative, there were no delusions reported or noted, he denied current auditory or visual hallucinations. Attention and concentration were intact and memory was mostly reliable but when unreliable likely intentionally so, but none were formally tested. He is alert and oriented times 3. Insight, judgment and impulse control were impaired. Vitals/I&O/Wt Last Vital Signs Temp 98.2 F 07/07/24 22:00 Pulse 76 07/07/24 22:00 Resp 18 07/07/24 22:00 BP 149/93 07/07/24 22:00 Pulse Ox 100 07/07/24 22:00 O2 Del Method Room Air 07/07/24 21:18 07/07/24 07/07/24 07/08/24 14:59 22:59 06:59 Intake Total 120 / 120 120 / 240 Output Total 650 / 650 525 / 1175 Balance -530 / -530 -405 / -935 Weight last 48 hrs Weight 98.43 kg Weight 98.5 kg Weight 98.5 kg Physical Exam 2 Urinary Catheter Management: Dow: Cath Placed During This Visit: yes, but has since been removed by the nurse Reason for Continuing Indwelling Catheter: Decision to DC Catheter Urinary Catheter Date of Insertion: 07/05/24 Urinary Catheter Time of Insertion: 13:58 Date Urinary Catheter Removed: 07/06/24 Time Urinary Catheter Discontinued: 16:51 Data NPU 07/06/24 03:33 07/07/24 14:01 A&P Assessment and plan (1) Partner relational problem: (2) Methamphetamine dependence: (3) Methamphetamine intoxication: (4) Depression: (5) Acute lithium nephrotoxicity: (6) Acute kidney injury: (7) Intentional lithium overdose: (8) [place] toxicity: (9) Neurotoxicity: Plan This is a 54-year-old male with a long history of mental health and addiction issues with genetic loading for addiction issues who was discharged a week ago after being treated for methamphetamine withdrawal after an event where he was under the influence of methamphetamine during a conflict, which led to police custody and expressions of wanting to harm himself as well as made aggressive comments towards the police. He was stabilized on lithium which he reported he had success on in the past. He presents now after an intentional lithium overdose that he is reportedly trying to identify as without suicidal intent. 1. Continue current medication. Except continue to hold lithium and we will discontinue officially and start Abilify 5 mg with plan to titrate. 2. Discussion with patient leaves great concern about his intent during this situation. 3. Continued evaluation in a psychiatric unit would be appropriate after he is medically cleared. Agree with transfer to the neuropsychiatric unit. 4. Encourage sober living treatment after discharge at the highest level of care to which he is willing to commit. 5. Get collateral information. 6. Agree with 96-hour hold. 7. Continue every 15 minute checks for safety. 8. Encouraged individual, group and milieu therapy. PDMP PDMP Reviewed: Not Reviewed Involuntary Hold Information 2 Hold Status: Legal Status: 96 Hour Hold Date/Time Hold Expires: 07/12/24 @ 16:15 Attestations NPU 2 Medical Necessity Statement*: Inpatient hospitalization is medically necessary and the clinically appropriate intervention at this time. We will monitor/initiate medications and make changes as indicated. He will be in the hospital for over 2 midnights. Likely length of stay 3-6 days. Coding Level of Care Code Acute Code for Chg Fwd Diagnoses Partner relational problem Z63.0 Methamphetamine dependence F15.20 Methamphetamine intoxication F15.929 Depression F32.A Acute lithium nephrotoxicity T56.891A; N17.9 Acute kidney injury N17.9 Intentional lithium overdose T56.892A [place] toxicity T56.891A Neurotoxicity R29.90
[2024-07-07] MEDS: lidocaine 5% Patch 1 PATCH TOPICAL (21:35)
[2024-07-07] MEDS: gabapentin 300 mg Capsule PO (21:35)
[2024-07-07] MEDS: ARIPiprazole 10 mg Tablet 5 MG PO (22:36)
[2024-07-08 06:00] VITALS: BP 117/75; PULSE 81; RESP 18; O2SAT 95
[2024-07-08 08:24] LABS: Basophils # 0.1 10^3/uL (0.0-0.1); Basophils % 0.9 %; Eosinophils # 0.4 10^3/uL (0.0-0.8); Eosinophils % 5.3 %; Hematocrit 37.3 % (37-53); Lymphocytes # 2.2 10^3/uL (0.8-4.8); Lymphocytes % 27.8 %; Mean Corpuscular HGB Conc 33.8 g/dL (30-55); Mean Corpuscular Hemoglobin 31.3 pg (27-33); Mean Corpuscular Volume 92.6 fl (82-101); Mean Platelet Volume 8.8 fL (7.4-10.4); Monocytes # 0.7 10^3/uL (0.2-0.9); Monocytes % 8.4 %; Neutrophils # 4.38 10^3/uL (1.8-7.7); Neutrophils % 56.3 %; Nucleated Red Blood Cells % 0 %; Platelet Count 285 10^3/cmm (157-399); Red Blood Count 4.03 10^6/uL (3.85-5.65); White Blood Count 7.77 10^3/uL (3.29-11.43)
[2024-07-08] MEDS: pantoprazole DR 40 mg Tablet PO (08:35)
[2024-07-08] MEDS: amlodipine 5 mg Tablet PO (08:35)
[2024-07-08] MEDS: HYDROcodone-acetaminophen 5-325 mg Tablet 1 TAB PO ×2 (08:35→17:47)
[2024-07-08] MEDS: ARIPiprazole 10 mg Tablet 5 MG PO (08:36)
[2024-07-08 08:39] LABS: Alanine Aminotransferase 56 U/L (0-41); Albumin Level 3.8 g/dL (3.5-5.2); Alkaline Phosphatase 77 U/L (40-130); Anion Gap 13.5 (5-19); Aspartate Amino Transferase 31 U/L (0-40); Blood Urea Nitrogen 9 mg/dL (6-20); Calcium 9.9 mg/dL (8.5-10.5); Carbon Dioxide 25 mmol/L (22-29); Chloride 104 mmol/L (98-107); Creatinine Clr Calc Pharmacy 142.8114; Glomerular Filtration Rate 118.4 mL/min (90-130); Glucose 116 mg/dL (65-115); Osmolality Calculated 286 mOsm/kg (285-295); Potassium 4.5 mmol/L (3.5-5.1); Sodium 138 mmol/L (136-145); Total Bilirubin 0.2 mg/dL (0.15-1.2); Total Protein 6.8 g/dL (6.6-8.7)
--- NOTE | 2024-07-08 11:41 | PC.NURSE ---
Verbal for patient to use walker while on the unit received by this nurse from Dr. Olsen for left knee/leg pain and weakness.
[2024-07-08 14:00] VITALS: BP 134/82; PULSE 88; RESP 18; TEMP 37.1; O2SAT 98
--- NOTE | 2024-07-08 16:39 | W.PM.NPUPNS ---
Subjective NPU Subjective: Patient presented today reporting that things are going okay. He spent most of his time arguing the fact that he did not intentionally overdose. We had a long discussion about the fact that we could not possibly know his intention but the outcome was near deadly and he has multiple stressors and so given the need to discontinue the lithium and find an alternative which will be new for his treatment for his mood dysregulation and aggression and staying in the hospital on a 96-hour hold is appropriate. He denied any side effects of the medication and agreed to the Abilify after discussion of the risks, benefits and alternatives he understood and agreed to proceed as is documented in this note. Mental Status Exam MSE Comments: This is an overweight versus obese male in hospital gown with limited grooming and eye contact. No abnormal movements. Mostly cooperative with exam in mild distress. Speech was slightly decreased rate and volume. Mood described as fine, affect mostly congruent. Thought process organized. Thought content: Patient denied suicidal or homicidal ideation however a simple conversation about the exact events surrounding the ingestion of the pills leaves great suspicion about the truthfulness of his current narrative, there were no delusions reported or noted, he denied current auditory or visual hallucinations. Attention and concentration were intact and memory was mostly reliable but when unreliable likely intentionally so, but none were formally tested. He is alert and oriented times 3. Insight, judgment and impulse control were impaired. Vitals/I&O/Wt Last Vital Signs Temp 98.8 F 07/08/24 14:00 Pulse 88 07/08/24 14:00 Resp 18 07/08/24 14:00 BP 134/82 07/08/24 14:00 Pulse Ox 98 07/08/24 14:00 O2 Del Method Room Air 07/08/24 14:00 07/08/24 07/08/24 07/08/24 06:59 14:59 22:59 Intake Total 120 / 120 Output Total 1175 / 1175 Balance -1055 / -1055 Weight last 48 hrs Weight 98.43 kg Weight 98.5 kg Physical Exam Urinary Catheter Management: Dow: Cath Placed During This Visit: yes, but has since been removed by the nurse Reason for Continuing Indwelling Catheter: Decision to DC Catheter Urinary Catheter Date of Insertion: 07/05/24 Urinary Catheter Time of Insertion: 13:58 Date Urinary Catheter Removed: 07/06/24 Time Urinary Catheter Discontinued: 16:51 Data NPU 07/08/24 08:15 07/08/24 08:15 A&P Assessment and plan (1) Partner relational problem: (2) Methamphetamine dependence: (3) Methamphetamine intoxication: (4) Depression: (5) Acute lithium nephrotoxicity: (6) Acute kidney injury: (7) Intentional lithium overdose: (8) [place] toxicity: (9) Neurotoxicity: Plan This is a 54-year-old male with a long history of mental health and addiction issues with genetic loading for addiction issues who was discharged a week ago after being treated for methamphetamine withdrawal after an event where he was under the influence of methamphetamine during a conflict, which led to police custody and expressions of wanting to harm himself as well as made aggressive comments towards the police. He was stabilized on lithium which he reported he had success on in the past. He presents now after an intentional lithium overdose that he is reportedly trying to identify as without suicidal intent. 1. Continue current medication. Except discontinue lithium officially and started Abilify 5 mg with plan to titrate. 2. Discussion with patient leaves great concern about his intent during this situation. 3. Continued evaluation in a psychiatric unit would be appropriate after he is medically cleared. Agree with transfer to the neuropsychiatric unit. 4. Encourage sober living treatment after discharge at the highest level of care to which he is willing to commit. 5. Get collateral information. 6. Agree with 96-hour hold. 7. Continue every 15 minute checks for safety. 8. Encouraged individual, group and milieu therapy. PDMP PDMP Reviewed: Not Reviewed Involuntary Hold Information Hold Status: Legal Status: 96 Hour Hold Date/Time Hold Expires: 07/12/24 @ 16:15 Attestations U Medical Necessity Statement*: Inpatient hospitalization is medically necessary and the clinically appropriate intervention at this time. We will monitor/initiate medications and make changes as indicated. Likely length of stay 3-6 days. Coding Level of Care Code Acute Code for Chg Fwd Diagnoses Partner relational problem Z63.0 Methamphetamine dependence F15.20 Methamphetamine intoxication F15.929 Depression F32.A Acute lithium nephrotoxicity T56.891A; N17.9 Acute kidney injury N17.9 Intentional lithium overdose T56.892A [place] toxicity T56.891A Neurotoxicity R29.90
--- NOTE | 2024-07-08 17:49 | PC.NURSE ---
Vision change Patient notified this nurse that since he woke up in the ICU following the incident , patient has been experiencing visual changes. Patient said that his vision is typically blurry, but now it is constantly changing from blurry to clear. Patient denies headache, dizziness, and confusion. Dr. Olsen notified. This nurse then was asked to talk with Dr. Orellana; Olivia from the switchboard left message for Dr. Orellana to return call.
[2024-07-08] MEDS: gabapentin 300 mg Capsule PO (21:09)
[2024-07-08] MEDS: hyDROXYzine 25 mg Capsule 50 MG PO (21:10)
[2024-07-08] MEDS: trazodone 50 mg Tablet PO (21:10)
[2024-07-08 22:00] VITALS: BP 154/80; PULSE 101; RESP 18; TEMP 36.6; O2SAT 95
[2024-07-08 22:18] VITALS: PULSE 93; RESP 16; O2SAT 97
[2024-07-08] MEDS: albuterol 2.5 MG/0.5 ML NEB NEBULIZER (22:18)
[2024-07-09 06:00] VITALS: BP 137/71; PULSE 76; RESP 17; O2SAT 94
[2024-07-09] MEDS: HYDROcodone-acetaminophen 5-325 mg Tablet 1 TAB PO (08:26)
[2024-07-09] MEDS: amlodipine 5 mg Tablet PO (08:26)
[2024-07-09] MEDS: ARIPiprazole 10 mg Tablet 5 MG PO (08:26)
[2024-07-09] MEDS: pantoprazole DR 40 mg Tablet PO (08:26)
--- NOTE | 2024-07-09 11:02 | PC.NURSE ---
Pt had asked that this nurse look at his dialysis catheter insertion site and remove the bandage. I have not done enough of those to know what I was looking at for sure and pt had had trouble in ICU with that site not clotting off. I called ICU and TESSA Mejia RN came over to assess the site with me. She removed the bandage and assessed the area. She stated that it looked really good and that we could just clean it with some alcohol and place a simple bandage over it.
[2024-07-09 14:00] VITALS: BP 133/93; PULSE 98; RESP 17; TEMP 36.6; O2SAT 98
--- NOTE | 2024-07-09 16:52 | PM.MISC ---
Miscellaneous Note Purpose of Documentation: no acute interim events Cr remains normalized at 0.7 No further interventions from IM standpoint Hospitalist service to sign off. please call with any further questions or concerns.
--- NOTE | 2024-07-09 17:51 | P.NPUPN_ITS ---
Subjective NPU 2 Subjective: 54-year-old male with bipolar disorder a dmitted with disorganized behavior after overdosing on lithium. Patient had reported feeling much better on the Abilify. He reported no side effects from his medication at this time. He had reported that he had been on lithium for several years but had gone several months without it until it was reinitiated on his previous psychiatric admission here a few weeks ago. The patient had reported that he was feeling as if his thoughts were calmer and slower. He had been more redirectable and pleasant on the unit. He had reported no feelings of hopelessness or worthlessness. He had denied any suicidal thoughts. He did not appear overly preoccupied by any conversations regarding his overdose. He had stated that he had success on lithium in the past but had felt that the Abilify was helpful for him. Mental Status Exam 2 MSE Comments: This is an overweight versus obese male in hospital gown with limited grooming and fair eye contact. No abnormal movements. He was pleasant and cooperative with exam in mild distress. Speech was normal in rate and normal in volume. Mood described as better. His affect was brighter today. Thought process was linear and organized. Thought content: Patient denied suicidal or homicidal ideation however a simple conversation about the exact events surrounding the ingestion of the pills leaves great suspicion about the truthfulness of his current narrative, there were no delusions reported or noted, he denied current auditory or visual hallucinations. Attention and concentration were intact and memory was mostly reliable but when unreliable likely intentionally so, but none were formally tested. He is alert and oriented times 3. Insight was poor and judgment and impulse control were also impaired. Vitals/I&O/Wt Last Vital Signs Temp 97.8 F 07/09/24 14:00 Pulse 98 07/09/24 14:00 Resp 17 07/09/24 14:00 BP 133/93 07/09/24 14:00 Pulse Ox 98 07/09/24 14:00 O2 Del Method Room Air 07/09/24 06:00 Weight last 48 hrs Weight 98.52 kg Weight 98.43 kg Physical Exam 2 Urinary Catheter Management: Dow: Cath Placed During This Visit: yes, but has since been removed by the nurse Reason for Continuing Indwelling Catheter: Decision to DC Catheter Urinary Catheter Date of Insertion: 07/05/24 Urinary Catheter Time of Insertion: 13:58 Date Urinary Catheter Removed: 07/06/24 Time Urinary Catheter Discontinued: 16:51 Data NPU 07/08/24 08:15 07/08/24 08:15 A&P Assessment and plan (1) Partner relational problem: (2) Methamphetamine dependence: (3) Methamphetamine intoxication: (4) Depression: (5) Acute lithium nephrotoxicity: (6) Acute kidney injury: (7) Intentional lithium overdose: (8) [place] toxicity: (9) Neurotoxicity: Plan This is a 54-year-old male with a long history of mental health and addiction issues with genetic loading for addiction issues who was discharged a week ago after being treated for methamphetamine withdrawal after an event where he was under the influence of methamphetamine during a conflict, which led to police custody and expressions of wanting to harm himself as well as made aggressive comments towards the police. He was stabilized on lithium which he reported he had success on in the past. He presents now after an intentional lithium overdose that he is reportedly trying to identify as without suicidal intent. 1. Increase abilify to 10mg daily. 2. Discussion with patient leaves great concern about his intent during this situation. 3. Continued evaluation in a psychiatric unit would be appropriate after he is medically cleared. Agree with transfer to the neuropsychiatric unit. 4. Encourage sober living treatment after discharge at the highest level of care to which he is willing to commit. 5. Get collateral information. 6. Agree with 96-hour hold. 7. Continue every 15 minute checks for safety. 8. Encouraged individual, group and milieu therapy. PDMP PDMP Reviewed: Not Reviewed Involuntary Hold Information 2 Hold Status: Legal Status: 96 Hour Hold Date/Time Hold Expires: 07/12/24 @ 16:15 Attestations NPU 2 Medical Necessity Statement*: Inpatient hospitalization is medically necessary and the clinically appropriate intervention at this time. We will monitor/initiate medications and make changes as indicated. Likely length of stay 2-3 days. Coding Level of Care Code Acute Code for Chg Fwd Diagnoses Partner relational problem Z63.0 Methamphetamine dependence F15.20 Methamphetamine intoxication F15.929 Depression F32.A Acute lithium nephrotoxicity T56.891A; N17.9 Acute kidney injury N17.9 Intentional lithium overdose T56.892A [place] toxicity T56.891A Neurotoxicity R29.90
[2024-07-09] MEDS: hyDROXYzine 25 mg Capsule 50 MG PO (20:06)
[2024-07-09] MEDS: gabapentin 300 mg Capsule PO (20:06)
[2024-07-09] MEDS: trazodone 50 mg Tablet PO (20:06)
[2024-07-09 21:06] VITALS: BP 148/94; PULSE 98; RESP 18; TEMP 36.9; O2SAT 96
[2024-07-10 06:00] VITALS: BP 121/77; PULSE 90; RESP 16; TEMP 36.9; O2SAT 97
[2024-07-10] MEDS: nicotine 21 mg Patch 1 PATCH TRANSDERMA (08:05)
[2024-07-10] MEDS: pantoprazole DR 40 mg Tablet PO (08:05)
[2024-07-10] MEDS: HYDROcodone-acetaminophen 5-325 mg Tablet 1 TAB PO ×2 (08:05→14:13)
[2024-07-10] MEDS: amlodipine 5 mg Tablet PO (08:05)
[2024-07-10] MEDS: ARIPiprazole 10 mg Tablet 5 MG PO ×2 (08:06→11:13)
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
[2024-07-10 14:42] VITALS: BP 121/77; PULSE 90; RESP 16; TEMP 36.9; O2SAT 97
--- NOTE | 2024-07-10 17:35 | PC.NURSE ---
I was approached by Fredy Vidal RN stating that patient had forgotten his d/c information packet here when he left. He had called asking if somebody could send him a picture of the information to his cell phone. Staff were uncomfortable with sharing their personal numbers with patient, so we obtained an email address from him and I sent his d/c appointment times and instructions to the following email provided by patient: . We will mail the hard-copy of the d/c information to patient but wanted to ensure he had his d/c appointments immediately.
== END 2024-07-10 16:09 | disposition home or self-care (01) | DRG 918 ==
LOC: ER 12:54 → ICU 12:58 → NP 07-07 20:50
PROVIDERS: Hospitalist; Admitting Provider Student in an Organized Health Care Education/Training Program; Emergency Provider Emergency Medicine; PCP Family Medicine; Visit Provider Psychiatry & Neurology Psychiatry
DX: T56.892A Toxic effect of other metals, intentional self-harm, initial encounter (principal); N17.9 Acute kidney failure, unspecified; E87.1 Hypo-osmolality and hyponatremia; F15.20 Other stimulant dependence, uncomplicated; Y92.9 Unspecified place or not applicable; R29.818 Other symptoms and signs involving the nervous system; I95.9 Hypotension, unspecified; F17.210 Nicotine dependence, cigarettes, uncomplicated; F32.A Depression, unspecified; M17.11 Unilateral primary osteoarthritis, right knee; E66.9 Obesity, unspecified; Z68.32 Body mass index [BMI] 32.0-32.9, adult
CPT/HCPCS: 36415; 36573; 36592; 36600; 51702; 71045; 76770; 80053; 80178; 80306; 80307; 82803; 84443; 85025; 86706; 87340; 90935; 93005; 94640; 96372; 96374; 96375; 97150; 97165; 99285; C1751; J1644; J2060; J2270; J2405; J7030; J7611; J9999

== ENCOUNTER 2024-08-06 10:18 | Emergency (ER) | payer BC, MEDICAID, SELFPAY ==
[2024-08-06 10:22] VITALS: BP 144/89; PULSE 97; RESP 20; TEMP 36.6; O2SAT 98; BMI 31.3
[2024-08-06] MEDS: lidocaine 1% 10 ML INJ SUBCUT (10:55)
--- NOTE | 2024-08-06 11:05 | W.ED.SKABFB ---
HPI - Skin/Abscess/Foreign Bdy General: Chief complaint: Skin/Abscess/Foreign Body Stated complaint: insect bite RT thigh Time Seen by Provider: 08/06/24 10:30 History of Present Illness: This patient is a 54-year-old white male who presents to the emergency department with an abscess on his right thigh. Patient states he had a spider bite on his right thigh on Wednesday. He saw his physician in the clinic on . He was placed on antibiotics. States the wound has gotten bigger and more painful. No fever. No drainage. Related Data Home Medications ?Medication ?Instructions ?Recorded ?Confirmed albuterol sulfate 90 mcg/actuation 2 puff inhalation QID PRN 07/08/24 07/08/24 aerosol inhaler (Ventolin HFA) Shortness Of Breath Or Wheezing Previous Rx's ?Medication ?Instructions ?Recorded gabapentin 300 mg capsule 300 mg PO BEDTIME 30 days #30 caps 06/29/24 lisinopril 20 mg tablet 20 mg PO DAILY 30 days #30 tabs 06/29/24 aripiprazole 15 mg tablet 15 mg PO DAILY 30 days #30 tabs 07/10/24 Allergies Allergy/AdvReac Type Severity Reaction Status Date / Time adhesive tape Allergy ALGY-Bliste Verified 08/06/24 10:22 r Review of Systems General: Reports: 10 or more systems reviewed and unremarkable except in HPI and below Skin/Breast: Reports: erythema, skin tenderness and skin swelling [facility] ED PFSH: Medical History Osteoarthritis of knees, bilateral Social History Smoking and tobacco/nicotine status: current every day tobacco/nicotine user cigarettes Packs smoked per day: 1 Physical Exam Const: COMMON NORMALS: no acute distress, patient oriented x3 and no limitations GENERAL APPEARANCE: cooperative and comfortable HENMT: COMMON NORMALS: normocephalic, atraumatic, Normal nasal mucous membranes and turbinates present, moist oral mucous membranes and oropharynx normal HEAD & SCALP: normal to inspection, normocephalic and atraumatic FACE & SINUS: normal facial exam NOSE: Normal nasal mucous membranes and turbinates present Eye: COMMON NORMALS: Equal, round and reactive pupils present, EOMs intact bilaterally and conjunctivae normal GENERAL EYE: appearance normal, both eyes and all related structures CONJUNCTIVA: Yes conjunctivae normal PUPIL: Yes Equal, round and reactive pupils present Neck/C-Spine: COMMON NORMALS: supple and no JVD Chest: COMMONS NORMALS: normal inspection of the chest Resp: COMMON NORMALS: normal respiratory effort and clear to auscultation bilaterally AUSCULTATION: clear to auscultation bilaterally Cardio: COMMON NORMALS: no JVD, regular rate, regular rhythm, No gallops present (Cardio), No murmurs present (Cardio) and No rub (Cardio) RATE: regular rate RHYTHM: regular rhythm GI: COMMON NORMALS: Normal to inspection, nondistended, normoactive bowel sounds present, Soft to palpation and non-tender AUSCULTATION: Yes normoactive bowel sounds PALPATION: Yes Soft to palpation : COMMON NORMALS: Yes no CVA tenderness BLADDER/KIDNEY EXAM: Yes no CVA tenderness Back/Pelvis: COMMON NORMALS: no CVA tenderness and thoracic and lumbar spine normal to inspection Extremity: COMMON NORMALS: normal to inspection Neuro: COMMON NORMALS: patient oriented x3 and CN's II-XII intact bilaterally Psych: COMMON NORMALS: mental status grossly normal, Normal thought process present and cooperative THOUGHT PROCESS: Normal thought process present Skin: NARRATIVE SKIN EXAM: Approximately 5 to 6 cm abscess right anterior mid thigh. Procedures Abscess I/D Site: lower extremity Side (if applicable): right Sedation/analgesia: none Local Anesthetic: lidocaine 1% Amount of anesthesia used (mL): 10 Technique: incised with #11 blade Packing used?: plain Course Vital Signs: Vital signs: Vital Signs Temperature 97.8 F 08/06/24 10:22 Pulse Rate 97 08/06/24 10:22 Respiratory Rate 20 H 08/06/24 10:22 Blood Pressure 144/89 08/06/24 10:22 Pulse Oximetry 98 08/06/24 10:22 MDM - Skin/Abscess/Foreign Bdy Medicial Decision Making Patient was instructed to unpack and repack the wound daily. Complete his antibiotic course. Follow-up with primary care provider in 1 week for recheck. He was discharged in stable condition. No radiology studies performed this visit Discharge Plan Discharge Patient Disposition: Home Clinical Impression: Abscess of skin or subcutaneous tissue Qualifiers: Site of cutaneous abscess: extremity Site of cutaneous abscess of extremity: lower extremity Laterality: right Qualified Code(s): L02.415 - Cutaneous abscess of right lower limb Condition: Stable Prescriptions: No Action gabapentin 300 mg Capsule 300 mg PO BEDTIME 30 Days Qty: 30 1RF lisinopril 20 mg Tablet 20 mg PO DAILY 30 Days Qty: 30 1RF albuterol sulfate [Ventolin HFA] 90 mcg/actuation HFA aerosol inhaler 2 puff INHALATION QID PRN (Reason: Shortness Of Breath Or Wheezing) aripiprazole 15 mg tablet 15 mg PO DAILY 30 Days Qty: 30 1RF Discharge Orders: Discharge ED (Routine); Ordered 08/06/24 Ordered By: Daniel Buck Referrals: Shalom Moffett MD [Primary Care Provider] Activity Restrictions/Additional Instructions: Continue your antibiotic as previously prescribed. Unpack and repack the wound daily. Follow-up with your primary care provider for recheck in 1 week. Print Language: Macedonian Coding Level of Care Code ED Junior Graphic Designer for Justyn Ellison
--- NOTE | 2024-08-06 11:07 | PC.NURSE ---
2IN OF PACKING INSERTED INTO PT WOUND PER VERBAL INSTRUCTIONS BY DR. PENNINGTON. PT VERBALIZED UNDERSTANDING OF PACKING INSTRUCTIONS. PT WOUND DRESSED AND COVERED.
[2024-08-06 11:12] VITALS: BP 142/89; PULSE 91; O2SAT 97
== END 2024-08-06 11:14 | disposition home or self-care (01) ==
PROVIDERS: Emergency Provider Emergency Medicine; PCP Family Medicine
DX: L02.415 Cutaneous abscess of right lower limb (principal); F17.210 Nicotine dependence, cigarettes, uncomplicated
CPT/HCPCS: 10060; 96372; 99283; J9999

== ENCOUNTER 2024-08-11 17:42 | Emergency (ER) | payer BC, MEDICAID, SELFPAY ==
[2024-08-11 17:44] VITALS: BP 164/97; PULSE 115; RESP 17; TEMP 36.7; O2SAT 97; BMI 30.4
--- NOTE | 2024-08-11 17:44 | XRR_ITS ---
PROCEDURE INFORMATION: Exam: XR Chest Exam date and time: 08/11/2024 5:52 PM Age: 54 years old Clinical indication: Screening exam; Other screening; Mhe; Clearance TECHNIQUE: Imaging protocol: Radiologic exam of the chest. Views: 1 view. COMPARISON: CR (CHEST, ) 07/06/2024 6:49 AM FINDINGS: Lungs: Unremarkable. No consolidation. Pleural spaces: Unremarkable. No pleural effusion. No pneumothorax. Heart/Mediastinum: Unremarkable. No cardiomegaly. Bones/joints: The spine demonstrates mild degenerative changes at multiple levels. XR/XR chest 1V portable [id number] IMPRESSION: No acute findings.
--- NOTE | 2024-08-11 17:44 | ECG_ITS ---
[facility] Date: 2024-08-11 Pat Name: Alden Velez Department: Room: Gender: Male Sap Bw Consultant: : 1970 Requested By: Omar Rubio Order Number: [id number] Khurram MD: RUTH SERRATO Measurements Intervals [place] Rate: 108 P: 82 AL: 160 QRS: 67 QRSD: 102 T: 84 QT: 333 QTc: 446 Interpretive Statements SINUS TACHYCARDIA POSSIBLE LEFT ATRIAL ENLARGEMENT [-0.1mV P-WAVE IN V1/V2] INCOMPLETE RIGHT BUNDLE BRANCH BLOCK [90+ ms QRS DURATION, TERMINAL R IN V1/V2, 40+ ms S IN I/aVL/V4/V5/V6] ABNORMAL RHYTHM ECG Compared to ECG 07/05/2024 11:58:54 Sinus rhythm no longer present Electronically Signed On 08-12-2024 23:49:44 CDT by RUTH SERRATO [email or web address]
--- NOTE | 2024-08-11 18:00 | PC.NURSE ---
96 hour hold rights read and reviewed with patient. Vladimir from security present during reading of rights. Patient verbalized understandings and copy of rights given to patient.
[2024-08-11 18:02] LABS: Bilirubin Urine Negative (Negative); Blood Urine 1+ (Negative); Glucose Urine UA Negative (Normal); Ketones Urine Negative (Negative); Leukocyte Esterase Urine Negative (Negative); Nitrate Urine Negative (Negative); Protein Urine Negative (Negative); Specific Gravity, Urine 1.019 (1.005-1.030); Urine Appearance Clear (CLEAR); Urine Color Yellow (Yellow); Urobilinogen Urine 0.2 mg/dL (Negative); pH Urine 6.5 (5-7)
[2024-08-11 18:04] LABS: Add Urine Microscopic? YES; Bacteria Urine None Seen /hpf; Hyaline Casts Urine 0-4 /lpf; Squamous Epithelial Cell Urine 0-5 /hpf (0-5); WBC Urine 0-5 /hpf (0-5)
[2024-08-11 18:11] LABS: Basophils # 0.1 10^3/uL (0.0-0.1); Basophils % 0.9 %; Eosinophils # 0.2 10^3/uL (0.0-0.8); Eosinophils % 2.6 %; Hematocrit 43.1 % (37-53); Lymphocytes # 1.7 10^3/uL (0.8-4.8); Lymphocytes % 19.3 %; Mean Corpuscular HGB Conc 33.6 g/dL (30-55); Mean Corpuscular Hemoglobin 31.2 pg (27-33); Mean Corpuscular Volume 92.7 fl (82-101); Mean Platelet Volume 8.5 fL (7.4-10.4); Monocytes # 0.8 10^3/uL (0.2-0.9); Monocytes % 9.3 %; Neutrophils # 5.74 10^3/uL (1.8-7.7); Nucleated Red Blood Cells % 0 %; Platelet Count 337 10^3/cmm (157-399); Red Blood Count 4.65 10^6/uL (3.85-5.65); White Blood Count 8.58 10^3/uL (3.29-11.43)
--- NOTE | 2024-08-11 18:25 | ED.C_ITS ---
HPI - Psych 2 General: Chief Complaint: Psychiatric Symptoms Stated Complaint: 96 Time Seen by Provider: 08/11/24 17:46 History of Present Illness: Patient is a 54-year-old gentleman with longstanding history of depression, presents to emergency room due to suicidal ideation. Patient relates to me that he thinks about suicide on a daily basis. He does believe it is worse lately. He relates the last time he attempted suicide was 2020 by hanging. Patient presents with affidavits from [facility] [place], and [facility]. Patient is already on 96-hour hold prior to arrival for workup. Patient denies any other symptoms. Associated symptoms: Reports depression and suicidal ideation Related Data Home Medications ?Medication ?Instructions ?Recorded ?Confirmed albuterol sulfate 90 mcg/actuation 2 puff inhalation Q ID PRN 07/08/24 08/06/24 aerosol inhaler (Ventolin HFA) Shortness Of Breath Or Wheezing budesonide-formoterol HFA 160 2 inh inhalation DAILY 0 08/06/24 08/06/24 mcg-4.5 mcg/actuation aerosol inhaler (Symbicort) clindamycin HCl 300 mg capsule 300 mg PO TID 08/06/24 08/06/24 meloxicam 15 mg tablet 15 mg PO DAILY 08/06/24 0604/01 ondansetron HCl 8 mg tablet 8 mg PO Q8H 08/06/2408/06 tiotropium bromide 2.5 2 inh inhalation DAILY 08/0608/06/24 mcg/actuation mist for inhalation (Spiriva Respimat) venlafaxine 75 mg capsule,extended 225 mg PO DAILY 04/0108/06/24 release 24 hr Previous Rx's ?Medication ?Instructions ?Recorded gabapentin 300 mg capsule 300 mg PO BEDTIME 30 days #3 0 caps 06/29/24 lisinopril 20 mg tablet 20 mg PO DAILY 30 days #30 t abs 06/29/24 aripiprazole 15 mg tablet 15 mg PO DAILY 30 days #30 t abs 07/10/24 Allergies Allergy/AdvReac Type Severity Reaction Status Date / Time adhesive tape Allergy ALGY-Bliste Verified 08/06/24 10:22 r Review of Systems 2 General: Reports: 10 or more systems reviewed and unremarkable except in HPI and below Const: Denies: fever(s) or chills ENMT: Denies: throat pain or nasal congestion Card: Denies: chest pain or palpitations Resp: Denies: dyspnea or productive cough GI: Denies: abdominal pain, nausea or vomiting : Denies: flank pain or difficulty urinating Musc: Denies: neck pain, back pain or joint pain Skin/Breast: Denies: rash or pruritus Neuro: Denies: headache(s) or numbness in extremities Psych: Reports: anxiety, depression, mood swings and suicidal ideation Endo: Denies: polyuria Nicholas/Lymph: Denies: easy bruising or easy bleeding All/Imm: Denies: urticaria or throat swelling PFSH ED 2 PFSH: Medical History Osteoarthritis of knees, bilateral Social History Smoking and tobacco/nicotine status: current every day tobacco/nicotine user cigarettes Packs smoked per day: 1 Physical Exam 2 Const: COMMON NORMALS: no acute distress, patient oriented x3, no limitations, healthy appearing, alert and well nourished GENERAL APPEARANCE: cooperative NUTRITIONAL APPEARANCE: obese ORIENTATION/CONSCIOUSNESS: Yes awake, Yes oriented to person, Yes oriented to place and Yes oriented to time HENMT: COMMON NORMALS: normocephalic, atraumatic, hearing grossly normal bilaterally, Normal external nose present and oropharynx normal HEAD & SCALP: normocephalic and atraumatic FACE & SINUS: normal facial exam NOSE: Normal external nose present and Normal nares present MOUTH: Normal oral and palatal mucosa present, lip normal and tongue normal THROAT: posterior oropharynx normal Eye: COMMON NORMALS: Equal, round and reactive pupils present, EOMs intact bilaterally, conjunctivae normal and no scleral icterus GENERAL EYE: a ppearance normal, both eyes and all related structures EYELID: eyelids normal CONJUNCTIVA: Yes conjunctivae normal PUPIL: Yes Equal, round and reactive pupils present Neck/C-Spine: COMMON NORMALS: full ROM, no lymphadenopathy and Thyroid normal GENERAL: Yes normal visual inspection THYROID: Thyroid normal Lymph: LYMPHATIC: no lymphadenopathy noted Chest: COMMONS NORMALS: normal inspection of the chest Resp: COMMON NORMALS: normal respiratory effort and clear to auscultation bilaterally AUSCULTATION: clear to auscultation bilaterally Cardio: COMMON NORMALS: regular rate, S1 normal heart sound present, S2 normal heart sound present and Peripheral pulses 2+ throughout RATE: regular rate HEART SOUNDS: S1 normal heart sound present and S2 normal heart sound present PERIPHERAL PULSES: Peripheral pulses 2+ throughout GI: COMMON NORMALS: Normal to inspection, nondistended, normoactive bowel sounds present and Soft to palpation PALPATION: Yes Soft to palpation : COMMON NORMALS: Yes no CVA tenderness BLADDER/KIDNEY EXAM: Yes no CVA tenderness Back/Pelvis: COMMON NORMALS: no CVA tenderness Extremity: COMMON NORMALS: normal to inspection and full ROM Neuro: COMMON NORMALS: patient oriented x3 and CN's II-XII intact bilaterally SENSORIUM/ORIENTATION: Yes alert, Yes oriented to person, Yes oriented to place and Yes oriented to time CRANIAL NERVES: Yes CN normal except as noted COORDINATION/BALANCE: [id number] test normal MOTOR EXAM: 5/5 motor strength present throughout COORDINATION: [id number] test normal PUPIL EXAM: Normal pupillary reactivity/response: bilateral Psych: COMMON NORMALS: mental status grossly normal and speech normal A CTIVITY/MOTOR BEHAVIOR: Yes appropriate eye contact and Yes restless SPEECH: Yes normal speech MOOD & AFFECT: Yes depressed mood and Yes anxious T HOUGHT PROCESS: racing thoughts THOUGHT CONTENT: Yes Suicidality present A TTENTION/CONCENTRATION: Yes attention grossly intact INSIGHT: Limited insight present (Psych) JUDGEMENT: Limited judgement present (Psych) Skin: COMMON NORMALS: no rashes or lesions noted GENERAL SKIN EXAM: no rashes or lesions noted WOUNDS: Yes wounds noted (right upper leg without redness) Course 2 Reevaluation(s): Reevaluation #1: Dr. Grey accepted pt for 96 hour hold to NPU Reevaluation #2: Patient anxious, Geodon ordered. Patient is also requesting night medications and Abilify that he did not take this morning. These were ordered as well. Vital Signs: Vital signs: Vital Signs Temperature 98.0 F 08/11/24 17:44 Pulse Rate 101 H 08/11/24 19:54 Respiratory Rate 17 08/11/24 19:54 Blood Pressure 156/100 08/11/24 19:54 Pulse Oximetry 98 08/11/24 19:54 Oxygen Delivery Me thod Room Air 08/11/24 19:54 MDM - Psych Medical Decision Making Patient is a 54-year-old male with history of depression and previous suicide attempt that presents with affidavits for [facility]. Will obtain routine workup/labs, and call n.p.o. for possible psychiatric admission. Lab Data 08/11/24 18:05 08/11/24 18:05 Radiology Impressions Chest X-Ray 08/11/24 17:44 IMPRESSION: No acute findings. Laboratory Results WBC 8.58 10^3/uL (3.29-11.43) 08/11/24 18:05 RBC 4.65 10^6/uL (3.85-5.65) 08/11/24 18:05 Hgb 14.50 g/dL (11.27-16.99) 08/11/24 18:05 Hct 43.1 % (37-53) 08/11/24 18:05 MCV 92.7 fl (82-101) 08/11/24 18:05 MCH 31.2 pg (27-33) 08/11/24 18:05 MCHC 33.6 g/dL (30-55) 08/11/24 18:05 RDW 13.0 % (12.1-15.1) 08/11/24 18:05 Plt Count 337 10^3/cmm (157-399) 08/11/24 18:05 MPV 8.5 fL (7.4-10.4) 08/11/24 18:05 Neut % (Auto) 67.0 % 08/11/24 18:05 Lymph % (Auto) 19.3 % 08/11/24 18:05 [place] % (Auto) 9.3 % 08/11/24 18:05 Eos % (Auto) 2.6 % 08/11/24 18:05 Baso % (Auto) 0.9 % 08/11/24 18:05 Neut # (Auto) 5.74 10^3/uL (1.8-7.7) 08/11/24 18:05 Lymph # (Auto) 1.7 10^3/uL (0.8-4.8) 08/11/24 18:05 [place] # (Auto) 0.8 10^3/uL (0.2-0.9) 08/11/24 18:05 Eos # (Auto) 0.2 10^3/uL (0.0-0.8) 08/11/24 18:05 Baso # (Auto) 0.1 10^3/uL (0.0-0.1) 08/11/24 18:05 Nucleated RBC % (auto) 0 % 08/11/24 18:05 Nucleated RBCs # 0.0 /100WBC 08/11/24 18:05 Sodium 142 mmol/L (136-145) 08/11/24 18:05 Potassium 4.6 mmol/L (3.5-5.1) 08/11/24 18:05 Chloride 107 mmol/L (98-107) 08/11/24 18:05 Carbon Dioxide 23 mmol/L (22-29) 08/11/24 18:05 Anion Gap 16.6 (5-19) 08/11/24 18:05 BUN 13 mg/dL (6-20) 08/11/24 18:05 Creatinine 0.8 mg/dL (0.7-1.2) 08/11/24 18:05 GFR Calculation 101.5 mL/min (90-130) 08/11/24 18:05 Glucose 129 mg/dL (65-115) H 08/11/24 18:05 Calculated Osmolality 296 mOsm/kg (285-295) H 08/11/24 18:05 Calcium 10.5 mg/dL (8.5-10.5) 08/11/24 18:05 Total Bilirubin 0.2 mg/dL (0.15-1.2) 08/11/24 18:05 AST 12 U/L (0-40) 08/11/24 18:05 ALT 13 U/L (0-41) 08/11/24 18:05 Alkaline Phosphatase 80 U/L (40-130) 08/11/24 18:05 Total Protein 7.5 g/dL (6.6-8.7) 08/11/24 18:05 Albumin 4.5 g/dL (3.5-5.2) 08/11/24 18:05 Globulin 3.0 g/dL (1.3-4.6) 08/11/24 18:05 Urine Color Yellow (Yellow) 08/11/24 17:55 Urine Appearance Clear (CLEAR) 08/11/24 17:55 Urine pH 6.5 (5-7) 08/11/24 17:55 Ur Specific [place] 1.019 (1.005-1.030) 08/11/24 17:55 Urine Protein Negative (Negative) 08/11/24 17:55 Urine Glucose (UA) Negative (Normal) 08/11/24 17:55 Urine Ketones Negative (Negative) 08/11/24 17:55 Urine Blood 1+ (Negative) A 08/11/24 17:55 Urine Nitrate Negative (Negative) 08/11/24 17:55 Urine Bilirubin Negative (Negative) 08/11/24 17:55 Urine Urobilinogen 0.2 mg/dL (Negative) 08/11/24 17:55 Ur Leukocyte Esterase Negative (Negative) 08/11/24 17:55 Urine RBC 11-20 /hpf (0-2) H 08/11/24 17:55 Urine WBC 0-5 /hpf (0-5) 08/11/24 17:55 Ur Squamous Epith Cells 0-5 /hpf (0-5) 08/11/24 17:55 Amorphous Sediment Not Reportable 08/11/24 17:55 Urine Bacteria None seen /hpf (NONE) 08/11/24 17:55 Hyaline Casts 0-4 /lpf H 08/11/24 17:55 Salicylates < 0.3 mg/dL (3-10) L 08/11/24 18:05 Urine Opiates Screen Negative ng/mL (Negative) 08/11/24 17:55 Acetaminophen < 5.0 ug/mL (10-30) L 08/11/24 18:05 Ur Barbiturates Screen Negative ng/mL (Negative) 08/11/24 17:55 Ur Phencyclidine Scrn Negative ng/mL (Negative) 08/11/24 17:55 Ur Amphetamines Screen Negative ng/mL (Negative) 08/11/24 17:55 U Benzodiazepines Scrn Negative ng/mL (Negative) 08/11/24 17:55 Urine Cocaine Screen Negative ng/mL (Negative) 08/11/24 17:55 U Marijuana (THC) Screen Negative ng/mL (Negative) 08/11/24 17:55 All radiology interpretation(s) finalized by discharge ED provider radiology interpretation(s): no acute EKG Data EKG 1: Interpretation: normal axis, sinus tach, qtc 396 ms Computer generated interpretation: Sinus tachycardia, possible left atrial enlargement, incomplete right bundle branch block Discharge Plan Discharge Patient Disposition: Admitted As Inpatient Clinical Impression: Suicidal ideation, Acute anxiety Depression Qualifiers: Depression Type: major depressive disorder Major depression recurrence: r ecurrent Active/Remission status: currently active Major depression episode severity: severe Psychotic features: with psychotic features Qualified Code(s): F33.3 - Major depressive disorder, recurrent, severe with psychotic symptoms Condition: Stable Discharge Diet: Usual diet Discharge Activity: Resume usual activity Coding Level of Care Code ED Data Review Specialist for Justyn Ellison
[2024-08-11 18:26] LABS: Alanine Aminotransferase 13 U/L (0-41); Albumin Level 4.5 g/dL (3.5-5.2); Alkaline Phosphatase 80 U/L (40-130); Anion Gap 16.6 (5-19); Aspartate Amino Transferase 12 U/L (0-40); Blood Urea Nitrogen 13 mg/dL (6-20); Calcium 10.5 mg/dL (8.5-10.5); Carbon Dioxide 23 mmol/L (22-29); Chloride 107 mmol/L (98-107); Creatinine Clr Calc Pharmacy 121.9106; Glomerular Filtration Rate 101.5 mL/min (90-130); Glucose 129 mg/dL (65-115); Osmolality Calculated 296 mOsm/kg (285-295); Potassium 4.6 mmol/L (3.5-5.1); Sodium 142 mmol/L (136-145); Total Bilirubin 0.2 mg/dL (0.15-1.2); Total Protein 7.5 g/dL (6.6-8.7)
[2024-08-11 18:27] LABS: Acetaminophen < 5.0 ug/mL (10-30); Salicylate < 0.3 mg/dL (3-10)
[2024-08-11 18:37] LABS: Amphetamines Screen Urine Negative (Negative); Barbiturates Screen Urine Negative (Negative); Benzodiazepines Screen Urine Negative (Negative); Cocaine Screen Urine Negative (Negative); Opiate Screen Urine Negative (Negative); PCP Screen Urine Negative (Negative); THC Screen Urine Negative (Negative)
[2024-08-11] MEDS: OLANZapine 5 mg ODT PO (18:43)
[2024-08-11 19:54] VITALS: BP 156/100; PULSE 101; RESP 17; O2SAT 98
[2024-08-11] MEDS: clindamycin 150 mg Capsule 300 MG PO (21:48)
[2024-08-11] MEDS: ARIPiprazole 10 mg Tablet PO (21:48)
[2024-08-11] MEDS: lisinopril 20 mg Tablet PO (21:48)
[2024-08-11] MEDS: gabapentin 300 mg Capsule PO (21:48)
[2024-08-11] MEDS: ziprasidone 20 mg/mL SDV 10 MG IM (21:49)
[2024-08-11] MEDS: water for injection-sterile 10 ML 2 ML (21:49)
[2024-08-11] MEDS: meloxicam 7.5 mg tablet 15 MG PO (21:54)
--- NOTE | 2024-08-11 22:57 | PC.NURSE ---
pt requesting to speak with nurse. upon updating patient with noted mild agiation and asking to leave. stated pt under 96 hour hold and unable to leave at this time. pt requesting home medications and something for anxiety. pts belonging collected and phone numbers obtained for patient to call and set up affairs along with home medications gathered to give patinet. pt able to be calmed via verbal stimuli. pt resting back in bed. will contact provider for possible medications administrations.
--- NOTE | 2024-08-11 22:59 | PC.NURSE ---
2200- pt allowed to make 2 phone calls and set up affairs at this time. pt in no obvious distress. pt calm at this time. pt resting comfrotably in bed after making telephone calls.pt in no obvious distress. pt on 1-1 observations .
[2024-08-12 07:23] VITALS: PULSE 92; O2SAT 98
--- NOTE | 2024-08-12 09:51 | PC.PHAR ---
Pt unable to verify home medications. Last med rec completed 08/06/24-verified most current med list with newest medications filled by [facility].
--- NOTE | 2024-08-12 14:54 | PC.NURSE ---
Gave pt a sandwich and a coke.
[2024-08-12 19:00] VITALS: BP 147/91; PULSE 91; RESP 16; O2SAT 97
--- NOTE | 2024-08-12 20:41 | PM.EVENT ---
Event Note Event Note: Patient having ongoing agitation. Patient assessed at bedside. Will use Geodon 10 mg x 1.
[2024-08-12] MEDS: ziprasidone 20 mg/mL SDV 10 MG IM (20:43)
[2024-08-12] MEDS: water for injection-sterile 10 ML 2 ML (20:45)
[2024-08-13] MEDS: meloxicam 7.5 mg tablet 15 MG PO (00:55)
[2024-08-13] MEDS: gabapentin 300 mg Capsule PO (00:55)
[2024-08-13] MEDS: ARIPiprazole 30 mg Tablet 15 MG PO (01:49)
[2024-08-13 06:05] LABS: Influenza A NEGATIVE (Negative); Influenza B NEGATIVE (Negative); Respiratory Syncytial Virus Ce NEGATIVE (Negative); SARS-CoV-2 PCR NEGATIVE (Negative)
--- NOTE | 2024-08-13 07:00 | PC.NURSE ---
ASSUMED CARE OF PATIENT FROM CRISTINA HIGH @[id number].
[2024-08-13 09:52] VITALS: BP 148/95; PULSE 105; O2SAT 96
--- NOTE | 2024-08-13 09:59 | PC.NURSE ---
REPORT CALLED TO KRISHNA BARRAZA BY THIS NURSE TO HALEIGH Shah RN. ACCEPTING NURSE VERBALIZED UNDERSTANDING AND DENIED ANY QUESTIONS.
--- NOTE | 2024-08-13 10:28 | PC.NURSE ---
REPORT GIVEN TO [facility] @[phone]; DENIES ANY FURTHER QUESTIONS.
[2024-08-13 10:36] VITALS: BP 148/95; PULSE 105; O2SAT 96
== END 2024-08-13 10:37 | disposition admitted as inpatient to this hospital (09) ==
LOC: ER 22:27 → ER IP 08-12 00:28
PROVIDERS: Emergency Medicine; Emergency Provider Physician Assistant; PCP Family Medicine
DX: R45.851 Suicidal ideations (principal); F41.8 Other specified anxiety disorders; F33.3 Major depressive disorder, recurrent, severe with psychotic symptoms; F17.210 Nicotine dependence, cigarettes, uncomplicated
CPT/HCPCS: 36415; 71045; 80053; 80306; 80307; 81001; 85025; 87637; 93005; 96372; J3486; J9999

== ENCOUNTER 2025-02-17 10:41 | Inpatient (IN) | payer BC, MEDICAID, SELFPAY ==
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
[2025-02-17] VITALS (14 sets, daily range): BP systolic 121–157; BP diastolic 89–119; PULSE 81–104; RESP 16–174; TEMP 36.3–36.7; O2SAT 94–97; BMI 34.8
--- OUTSIDE RECORDS SUMMARY | 2025-02-17 10:46 | XMS_ITS | Encounter Summary ---
Author Organization [facility] Address [address] [place] [address] Care Team Providers Care Supervisor Vacuum Metalizing Name Role Phone Shalom Moffett MD Primary Care Provider [phone] Reason for Visit * Reason Onset Date Comments Medication Refill 02/09/2025 Encounter Details Date Type Department Care Team (Late st Contact Info) Description 02/09/2025 Refill [facility] [address] [phone] Shalom Moffett MD [address] [place] [phone] Primary hypertension Social History Tobacco Use Types Packs/Day Years Used Date Smoking Tobacco: Every Day Cigarettes 1 31.4 Started: 09/07/1993 Smokeless Tobacco: Former Alcohol Use Standard Drinks/Week Comments Not Currently 10 (1 standard drink = 0.6 oz pu re alcohol) Sex and Gender Information Value Date Recorded Sex Assigned at Not on file Legal Sex Male 7:19 AM COMPREHENSIVE OPHTHALMOLOGIST Gender Identity Not on file Sexual Orientation Not on file documented as of this encounter Miscellaneous Notes * Addendum Note - Shalom Moffett MD - 02/09/2025 9:41 PM CSTAddended by: SHALOM MOFFETT on: 02/09/2025 09:41 PM Modules accepted: Orders REHENSIVE OPHTHALMOLOGIST documented in this encounter Plan of Treatment Not on file documented as of this encounter Visit Diagnoses Diagnosis Primary hypertension Unspecified essential hypertension documented in this encounter Additional Health Concerns Assessment Noted Time PHQ-9 Depression Total Score: 3 07/19/19 25 10:02 AM CDT documented as of this encounter Care Teams Supervisor Vacuum Metalizing Relationship Specialty Start Date End Date Shalom Moffett MD [address] [place] [phone] PCP - General Family Practice 03/17/23 documented as of this encounter
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
--- NOTE | 2025-02-17 10:58 | XRR_ITS ---
PROCEDURE INFORMATION: Exam: XR Chest Exam date and time: 02/17/2025 11:04 AM Age: 54 years old Clinical indication: Cough TECHNIQUE: Imaging protocol: Radiologic exam of the chest. Views: 1 view. COMPARISON: CR XR chest 1V portable [id number] 08/11/2024 5:52 PM FINDINGS: Lungs: Unremarkable. No consolidation. Pleural spaces: Unremarkable. No pleural effusion. No pneumothorax. Heart/Mediastinum: Unremarkable. No cardiomegaly. Bones/joints: Degenerative changes of the bilateral shoulder joints. XR/XR chest 1V portable [id number] IMPRESSION: No acute findings.
--- NOTE | 2025-02-17 10:59 | W.ED.URI ---
HPI - URI/Sore Throat General: Chief Complaint: Upper Respiratory Infection Stated Complaint: cough, headache Time Seen by Provider: 02/17/25 10:58 History of Present Illness: 54-year-old man with a history of anxiety, depression, obesity and hypertension who presents to the emergency room with upper respiratory symptoms. He said he has had cough, some mild chest tightness, and a headache with nasal congestion for several days now. No chest pain. Really no overt shortness of breath. No altered mental status. No known fevers. Related Data Home Medications ?Medication ?Instructions ?Recorded ?Confirmed albuterol sulfate 90 mcg/actuation 2 puff inhalation QID PRN 07/08/24 02/17/25 aerosol inhaler (Ventolin HFA) Shortness Of Breath Or Wheezing budesonide-formoterol HFA 160 2 inh inhalation DAILY 08/06/24 02/17/25 mcg-4.5 mcg/actuation aerosol inhaler (Symbicort) meloxicam 15 mg tablet 15 mg PO DAILY 08/06/24 02/17/25 ondansetron HCl 8 mg tablet 8 mg PO Q8H PRN Nausea 08/06/24 02/17/25 amoxicillin 875 mg-potassium 1 tab PO BID x7d 02/17/25 02/17/25 clavulanate 125 mg tablet nicotine 14 mg/24 hr daily See Rx Instructions .Route .COMPLEX 02/17/25 02/17/25 transdermal patch pantoprazole 40 mg tablet,delayed 40 mg PO DAILY 02/17/25 02/17/25 release prednisone 20 mg tablet 20 mg PO DAILY x5days 02/17/25 02/17/25 Previous Rx's ?Medication ?Instructions ?Recorded lisinopril 20 mg tablet 20 mg PO DAILY 30 days #30 tabs 06/29/24 aripiprazole 30 mg tablet (Abilify) 30 mg PO DAILY #30 tabs 01/10/25 benztropine 0.5 mg tablet 0.5 mg PO BEDTIME #30 tabs 01/10/25 gabapentin 300 mg capsule 300 mg PO DAILY #30 caps 01/10/25 venlafaxine 75 mg capsule,extended 225 mg (3 x 75 mg) PO QAM 30 days 01/23/25 release 24 hr #90 caps Allergies Allergy/AdvReac Type Severity Reaction Status Date / Time adhesive tape Allergy ALGY-Bliste Verified 02/17/25 11:00 r Review of Systems Narrative: Constitutional symptoms: Negative except as documented in HPI. Skin symptoms: Negative except as documented in HPI. Eye symptoms: Negative except as documented in HPI. ENMT symptoms: Negative except as documented in HPI. Respiratory symptoms: Negative except as documented in HPI. Cardiovascular symptoms: Negative except as documented in HPI. Gastrointestinal symptoms: Negative except as documented in HPI. Genitourinary symptoms: Negative except as documented in HPI. Musculoskeletal symptoms: Negative except as documented in HPI. Neurologic symptoms: Negative except as documented in HPI. Psychiatric symptoms: Negative except as documented in HPI. Endocrine symptoms: Negative except as documented in HPI. [facility] ED PFSH: Medical History (Updated 02/17/25 @ 14:04 by Hedy rGeen MD) Psychiatric care Osteoarthritis of knees, bilateral Social History Smoking and tobacco/nicotine status: current every day tobacco/nicotine user cigarettes Packs smoked per day: 1 Physical Exam Narrative: EXAM NARRATIVE: General: Alert, no acute distress. Skin: Warm, dry. Head: Normocephalic, atraumatic. Neck: Supple, trachea midline. Eye: Extraocular movements are intact. Ears, nose, mouth and throat: mucosa moist. Cardiovascular: Regular, Normal peripheral perfusion. Respiratory: Lungs are clear to auscultation, respirations are non-labored, breath sounds are equal, Symmetrical chest wall expansion. Gastrointestinal: Soft, Nontender, Non distended Musculoskeletal: Normal ROM, no deformity. Neurological: Alert and oriented, No focal neurological deficit observed. Psychiatric: Cooperative, appropriate mood & affect. Course Vital Signs: Vital signs: Vital Signs Temperature 98.1 F 02/17/25 10:58 Pulse Rate 82 02/17/25 14:58 Respiratory Rate 16 02/17/25 14:58 Blood Pressure 157/89 02/17/25 14:58 Pulse Oximetry 95 02/17/25 14:58 Oxygen Delivery Me thod Nasal Cannula 02/17/25 15:24 Oxygen Flow Rate 2 02/17/25 14:47 MDM - URI/Sore Throat Medical Decision Making Medical decision making Patient's reason for coming to the emergency room: Cough, headache Social determinants: Patient is unemployed I reviewed the patient's medical record. Patient most recently seen in the emergency room back in August for suicidal ideation. I reviewed the patient's current home meds Patient is on multiple psychiatric medications, lisinopril, gabapentin Alternate historians: None Differential diagnosis for patient with cough and a headache includes but is not limited to and based on the above HPI, review of systems and physical exam: Pneumonia. Bronchitis. Asthma or COPD with acute exacerbation. Acute coronary syndrome / TN. Pulmonary embolism. Anxiety. Congestive heart failure. Viral infections including influenza and Covid-19. Atrial fibrillation. Anxiety. Pleural effusion. Pneumothorax. Orders placed to evaluate differential diagnosis based on the above differential, HPI and physical exam Chest x-ray: Initially read as no acute findings. But addendum they thought they saw small left pneumothorax at 12 mm. This does appear apparent. A CT was ordered to further evaluate. This was reviewed and interpreted by myself the emergency room physician. I also reviewed the radiology report. CT of the chest without contrast: Known left pneumothorax. This is small. This was reviewed and interpreted by myself the emergency room physician. I also reviewed the radiology report. Lab Review: Laboratory results were reviewed and interpreted by myself the emergency room physician. Flu COVID and RSV are negative Consultation: I spoke with Dr. Tovar, ticket taker ferryboat/critical care at [facility] in [place]. We discussed that the patient might be able to go home but he really recommend that the patient be watched overnight and have a repeat x-ray tomorrow. Feels this most likely will resorb. Clinical decision support: I did review recommendations for small pneumothorax. This patient has no tachycardia. No oxygen requirements. No tachypnea or increased work of breathing. He has no chest pain. They do not recommend chest tube at this time. Assessment of risk: Level of risk: Moderate risk patient. Hospitalization considerations: Dr. Canela agreed to admit the patient. We do not have pulmonary and general surgery does not do chest tubes but if he does become symptomatic an ER physician should be able to assist. Reexamination: Patient remained stable. No increased work of breathing. No altered mental status. No focal motor deficits. Patient has not had any oxygen requirements but because of the pneumothorax I am placing him on a small amount of oxygen Assessment and plan: Pneumothorax Upper respiratory infection ?Decadron and doxycycline in the emergency room -I discussed the patient with the hospitalist on-call who is admitting the patient. - Discussed findings and plan with patient. Answered any questions. - All laboratory values were reviewed and interpreted personally by myself, the ER physician - All imaging was reviewed and interpreted personally by myself, the ER physician. - Evaluation and treatment of this problem were appropriate in the emergency setting Lab Data Radiology Impressions Chest X-Ray 02/17/25 10:58 IMPRESSION: No acute findings. ADDENDUM: 02/17/25 1149 ADDENDUM: Suspected small left pneumothorax measuring up to 12 millimeters. THIS REPORT CONTAINS FINDINGS THAT MAY BE CRITICAL TO PATIENT CARE. The findings were verbally communicated via telephone conference with HEDY Howard at 11:46 AM FLOOR COVERING INSTALLER on 02/17/2025. The findings were acknowledged and understood. Chest CT 02/17/25 11:46 IMPRESSION: Known left pneumothorax confirmed. COMMENTS: Consistent with the [employer]'s Incidental Findings Committee white paper (J Am [employer]iol 2018): Any incidental renal lesion less than 1 cm or classified as too small to characterize, or any incidental cystic renal lesion characterized as simple-appearing, is likely benign. No follow-up imaging is recommended for these lesions per consensus recommendations based on imaging criteria. Laboratory Results Influenza A (PCR) Negative (Negative) 02/17/25 11:15 Influenza Type B (PCR) Negative (Negative) 02/17/25 11:15 RSV (PCR) Negative (Negative) 02/17/25 11:15 SARS-CoV-2 (PCR) Negative (Negative) 02/17/25 11:15 All radiology interpretation(s) finalized by discharge Discharge Plan Discharge Patient Disposition: Placed in Observation Admit Provider: Efren Smyth Clinical Impression: Pneumothorax on left, Spontaneous pneumothorax, Upper respiratory infection Coding Level of Care Code ED Direct Mail Coordinator for Justyn Ellison
--- NOTE | 2025-02-17 11:46 | CTR_ITS ---
PROCEDURE INFORMATION: Exam: CT Chest Without Contrast; Diagnostic Exam date and time: 02/17/2025 11:52 AM Age: 54 years old Clinical indication: Abnormal findings; Abnormal radiologic exam of lung or chest; Additional info: Abnormal chest xray TECHNIQUE: Imaging protocol: Diagnostic computed tomography of the chest without contrast. Radiation optimization: All CT scans at this facility use at least one of these dose optimization techniques: automated exposure control; mA and/or kV adjustment per patient size (includes targeted exams where dose is matched to clinical indication); or iterative reconstruction. COMPARISON: CR (CHEST, ) 02/17/2025 11:04 AM RADIATION DOSE METRICS: Total DLP (mGy-cm): 768.32 FINDINGS: Lungs: Unremarkable. No consolidation. No masses. Pleural spaces: There is a known left pneumothorax. Heart: Unremarkable. No cardiomegaly. No pericardial effusion. Lymph nodes: Unremarkable. No enlarged lymph nodes. Vasculature: Unremarkable. No aortic aneurysm. Gallbladder and biliary ducts: There has been a cholecystectomy. Kidneys: Bilateral low attenuating renal cysts Mild coronary artery calcifications. High density exophytic right renal cysts noted likely representing proteinaceous or hemorrhagic cysts. Bones/joints: Unremarkable. No acute fracture. Soft tissues: Unremarkable. CT/CT chest wo con [id number] IMPRESSION: Known left pneumothorax confirmed. COMMENTS: Consistent with the [employer]'s Incidental Findings Committee white paper (J Am [employer]iol 2018): Any incidental renal lesion less than 1 cm or classified as too small to characterize, or any incidental cystic renal lesion characterized as simple-appearing, is likely benign. No follow-up imaging is recommended for these lesions per consensus recommendations based on imaging criteria.
[2025-02-17 11:56] LABS: Respiratory Syncytial Virus Ce NEGATIVE (Negative); SARS-CoV-2 PCR NEGATIVE (Negative)
[2025-02-17] MEDS: doxycycline 100 MG in sodium chloride 0.9% (plus) 100 ML IV (14:42)
--- NOTE | 2025-02-17 15:38 | PM.HP ---
Providers/Chief Complaint Admitting Physician: Efren Smyth Primary Care Provider: Shalom Moffett Chief Complaint: cough, headache History of Present Illness Alden Velez Jr is a 54 year old male pmhx HTN, GERD, depression w/ long history of mental health and addiction issues presents to ED today with c/o consistent cough and SOB x3 days. Patient was found to have left pneumothorax on chest x-ray in the ED. Patient reports associated signs and symptoms of constant dull pain to left lower chest- reports 3/10 on pain scale, sweats- felt hot like I had a fever , and ear and tooth pain. Patient saw PCP on 02/13/2025 for possible ear infection which was ruled out. PCP suspected possible dental abscess and sent patient with antibiotics, no imaging was completed. Patient has not seen the dentist in the last 2 years. Patient to be admitted to hospitalist services for continued medical management and care. While in the ED a CBC, CMP, Flu/RSV/COVID swab was obtained, reviewed, and results as follows: CBC was WNLs, glucose 129, Osmo 296, otherwise unremarkable. Flu/COVID/RSV negative. While in ED patient received following medication: Dexamethasone 10 mg IVP x 2, Toradol 60 mg IM, Doxycycline 100 mg IV. Review of Systems General: Reports: 10 or more systems reviewed and unremarkable except in HPI and below Medications/Allergies Home Medications ?Medication ?Instructions ?Recorded ?Confirmed ?Last Taken ?Type lisinopril 20 mg tablet 20 mg PO DAILY 30 days #30 tabs 06/29/24 02/17/25 02/15/25 Rx albuterol sulfate 90 mcg/actuation 2 puff inhalation QID PRN 07/08/24 02/17/25 Unknown History aerosol inhaler (Ventolin HFA) Shortness Of Breath Or Wheezing budesonide-formoterol HFA 160 2 inh inhalation DAILY 08/06/24 02/17/25 Unknown History mcg-4.5 mcg/actuation aerosol inhaler (Symbicort) meloxicam 15 mg tablet 15 mg PO DAILY 08/06/24 02/17/25 02/15/25 History ondansetron HCl 8 mg tablet 8 mg PO Q8H PRN Nausea 08/06/24 02/17/25 Unknown History aripiprazole 30 mg tablet (Abilify) 30 mg PO DAILY #30 tabs 01/10/25 02/17/25 Unknown Rx benztropine 0.5 mg tablet 0.5 mg PO BEDTIME #30 tabs 01/10/25 02/17/25 02/15/25 Rx gabapentin 300 mg capsule 300 mg PO DAILY #30 caps 01/10/25 02/17/25 02/15/25 Rx venlafaxine 75 mg capsule,extended 225 mg (3 x 75 mg) PO QAM 30 days 01/23/25 02/17/25 02/15/25 Rx release 24 hr #90 caps amoxicillin 875 mg-potassium 1 tab PO BID x7d 02/17/25 02/17/25 02/15/25 History clavulanate 125 mg tablet nicotine 14 mg/24 hr daily See Rx Instructions .Route .COMPLEX 02/17/25 02/17/25 Unknown History transdermal patch pantoprazole 40 mg tablet,delayed 40 mg PO DAILY 02/17/25 02/17/25 02/15/25 History release prednisone 20 mg tablet 20 mg PO DAILY x5days 02/17/25 02/17/25 02/15/25 History Allergies Allergy/AdvReac Type Severity Reaction Status Date / Time adhesive tape Allergy ALGY-Bliste Verified 02/17/25 11:00 r PFSH Acute PFSH: Medical History (Updated 02/17/25 @ 17:25 by Aishwarya Panchal NP) Psychiatric care Osteoarthritis of knees, bilateral Social History Smoking and tobacco/nicotine status: current every day tobacco/nicotine user cigarettes Packs smoked per day: 1 Vitals/I&O/Wt Last Vital Signs Temp 98.1 F 02/17/25 10:58 Pulse 82 02/17/25 14:58 Resp 16 02/17/25 14:58 BP 157/89 02/17/25 14:58 Pulse Ox 95 02/17/25 14:58 O2 Del Method Nasal Cannula 02/17/25 14:47 O2 Flow Rate 2 02/17/25 14:47 02/17/25 02/17/25 02/17/25 06:59 14:59 22:59 Intake Total 0 / 0 Balance 0 / 0 Weight last 48 hrs Weight 107.076 kg Weight 107.048 kg Physical Exam Narrative: General: A&Ox4, resting in bed on 2L NC. No apparent distress. Complains of tooth/ear pain. Cardio: NSR, normal S1-S2 w/o any murmurs, rubs, or gallops and JVD normal Respiratory: Wheezes to left lower lobe, rhonchi to right lower lobe on auscultation w/o any stridor GI: Abd soft, non-tender, non-distended, normo-active bowel sounds present Neuro: Moves all extremities, no sensory deficits, Normal speech Behavior: Appropriate and cooperative Extremities: Adequate palpable pulses. No clubbing, cyanosis or edema, Full ROM Data Other Labs: 02/17: Chest CT: Reviewed and results as follows: Known left pneumothorax confirmed. 02/17: CXR: Reviewed and results as follows: No acute findings. A&P Assessment and plan 1. Pneumothorax on left: 2. Hypertension: 3. GERD without esophagitis: 4. Osteoarthritis of knees, bilateral: Plan: Pneumothorax - Patient with persistent cough, shortness of breath on 2L NC - 02/17: Chest CT: Left pneumothorax confirmed. - Supplemental oxygen as indicated - IVP Decadron 10 mg daily - Pulmicort 0.5 mg inhalation twice daily - Respiratory to assess and treat - Continuous pulse oximetry - Continuous cardiac monitoring - Chest x-ray ordered for a.m. to evaluate pneumothorax - Tessalon Perles 200 mg p.o. 3 times daily as needed for persistent cough - Respiratory viral panel ordered, pending Suspected dental abscess - PCP visit 02/13/2025 for possible ear infection, ruled out. PCP suspected dental abscess started p.o. antibiotics of amoxicillin. No imaging has been completed. - CT w/ contrast of head ordered, pending Depression Anxiety - Continue home medical occasion Abilify 30 mg daily, Venlafaxine 75mg PO dly HTN -Continue home medication lisinopril 20 mg PO dly Osteoarthritis of bilateral knees On home medication meloxicam 15mg PO dly- hold. Continue gabapentin 300 mg PO dly GERD Continue home medication Protonix 40 mg dly Nicotine dependence -Nicotine patch 21 g daily -Smoking cessation CODE STATUS: Full code GI prophylaxis: Protonix 40 mg p.o. daily VTE prophylaxis: Lovenox 40 mg dly subq PDMP PDMP Reviewed: Not Reviewed Attestations Medical Necessity Statement*: Admitted under observation status. Given complexity of patient's presentation, pneumothorax, possible dental abscess, required intensity of treatment, a hospitalization less than two midnights is anticipated. and High Time for a total of 78 minutes, includes reviewing past or interval history, examining/interviewing patient, placing orders, counseling patient/family/other support, updating patient/family/other support, discussing plan of care with staff, communicating with other healthcare providers, documenting encounter and coordinating care Diagnoses Pneumothorax on left J93.9 Hypertension I10 GERD without esophagitis K21.9 Osteoarthritis of knees, bilateral M17.0
--- NOTE | 2025-02-17 16:48 | CTR_ITS ---
PROCEDURE INFORMATION: Exam: CT Maxillofacial With Contrast; Mandible Exam date and time: 02/17/2025 9:45 PM Age: 54 years old Clinical indication: C/O left sided dental pain. Prescribed abx from pcp for suspected dental infection. ; Additional info: Assess for dental abscess TECHNIQUE: Imaging protocol: Computed tomography maxillofacial with intravenous contrast. Exam focused on the mandible. Radiation optimization: All CT scans at this facility use at least one of these dose optimization techniques: automated exposure control; mA and/or kV adjustment per patient size (includes targeted exams where dose is matched to clinical indication); or iterative reconstruction. Contrast material: OMNI 350; Contrast volume: 100 ml; Contrast route: INTRAVENOUS (IV); COMPARISON: CT head wo con* [id number] 02/28/2020 3:59 AM RADIATION DOSE METRICS: Total DLP (mGy-cm): 687.31 FINDINGS: Paranasal sinuses: Polypoid mucosal thickening of right maxillary sinus. Bones: Mandible is unremarkable. No acute fracture. Soft tissues: Unremarkable. Teeth: Periapical lucency predominantly of the left 2nd mandibular molar on the left, nonspecific, could represent source of odontogenic infection. Other findings: Motion artifact limits exam. No definite acute abscess. CT/CT facial bones w con [id number] IMPRESSION: 1. No definite acute abscess. 2. Periapical lucency predominantly of the left 2nd mandibular molar on the left, nonspecific, could represent source of odontogenic infection.
[2025-02-17 17:49] LABS: Estmated Average Glucose 151; Hemoglobin A1C 6.9 % (4.0-6.0)
[2025-02-17 20:03] LABS: Coronavirus 229E,HKU1,NL63,OC4 Not Detected (NOT DETECT); Parainfluenza Virus Type 1 Not Detected (NOT DETECT); Parainfluenza Virus Type 2 Not Detected (NOT DETECT); Parainfluenza Virus Type 3 Not Detected (NOT DETECT); Parainfluenza Virus Type 4 Not Detected (NOT DETECT); SARS-COV-2 Not Detected (NOT DETECT)
[2025-02-17] MEDS: iohexol 350 mg/mL 500 mL Btl (per mL) IV (21:49)
[2025-02-18] VITALS (13 sets, daily range): BP systolic 123–154; BP diastolic 73–96; PULSE 85–107; RESP 15–20; TEMP 36.4–36.8; O2SAT 94–99
[2025-02-18 04:22] LABS: Hematocrit 39.6 % (37-53); Hemoglobin 13.30 g/dL (11.27-16.99); Mean Corpuscular HGB Conc 33.6 g/dL (30-55); Mean Corpuscular Hemoglobin 31.4 pg (27-33); Mean Corpuscular Volume 93.6 fl (82-101); Nucleated Red Blood Cells % 0 %; Platelet Count 253 10^3/cmm (157-399); Red Blood Count 4.23 10^6/uL (3.85-5.65); White Blood Count 12.16 10^3/uL (3.29-11.43)
[2025-02-18 04:46] LABS: Alanine Aminotransferase 13 U/L (0-41); Albumin Level 4.2 g/dL (3.5-5.2); Alkaline Phosphatase 59 U/L (40-130); Anion Gap 15.5 (5-19); Aspartate Amino Transferase 9 U/L (0-40); Blood Urea Nitrogen 18 mg/dL (6-20); Calcium 9.6 mg/dL (8.5-10.5); Carbon Dioxide 25 mmol/L (22-29); Chloride 102 mmol/L (98-107); Creatinine Clr Calc Pharmacy 148.8499; Globulin 2.4 g/dL (1.3-4.6); Glucose 328 mg/dL (65-115); Magnesium 2.1 mg/dL (1.7-2.3); Osmolality Calculated 301 mOsm/kg (285-295); Potassium 4.5 mmol/L (3.5-5.1); Sodium 138 mmol/L (136-145); Total Protein 6.6 g/dL (6.6-8.7)
[2025-02-18] MEDS: venlafaxine ER (24HR) 75 mg Capsule 225 MG PO (04:55)
--- NOTE | 2025-02-18 06:00 | XRR_ITS ---
PROCEDURE INFORMATION: Exam: XR Chest Exam date and time: 02/18/2025 8:05 AM Age: 54 years old Clinical indication: Other: Follow-up ptx TECHNIQUE: Imaging protocol: Radiologic exam of the chest. Views: 1 view. COMPARISON: CT chest [facility] [id number] 02/17/2025 11:52 AM FINDINGS: Lungs: Lungs are clear. Pleural spaces: Grossly unchanged appearance of known small left apical pneumothorax. No pleural effusion. Heart/Mediastinum: Unremarkable. No cardiomegaly. Bones/joints: No suspicious osseous findings XR/XR chest 1V portable [id number] IMPRESSION: Unchanged known small left apical pneumothorax.
--- NOTE | 2025-02-18 14:16 | P.PN_ITS ---
Subjective 2 Subjective: Cough improved. No chest pain. Currently breathing comfortable. Not aware of diabetes. Vitals/I&O/Wt Last Vital Signs Temp 98.2 F 02/18/25 11:26 Pulse 104 H 02/18/25 11:29 Resp 18 02/18/25 11:29 BP 123/73 02/18/25 11:26 Pulse Ox 96 02/18/25 11:29 O2 Del Method Nasal Cannula 02/18/25 11:29 O2 Flow Rate 3 02/18/25 11:29 02/17/25 02/18/25 02/18/25 22:59 06:59 14:59 Intake Total 340 / 340 1993.333 / 2333.333 480 / 480 Output Total 350 / 350 940 / 1290 725 / 725 Balance -10 / -10 1053.333 / 1043.333 -245 / -245 Weight last 48 hrs Weight 110.421 kg Weight 107.076 kg Weight 107.048 kg Physical Exam 2 Const: COMMON NORMALS: patient oriented x3 and alert GENERAL APPEARANCE: c ooperative ORIENTATION/CONSCIOUSNESS: Yes awake HENMT: COMMON NORMALS: oropharynx normal Neck/C-Spine: COMMON NORMALS: no JVD Resp: COMMON NORMALS: normal respiratory effort and clear to auscultation bilaterally AUSCULTATION: clear to auscultation bilaterally Cardio: COMMON NORMALS: no JVD, regular rhythm, S1 normal heart sound present, S2 normal heart sound present and No murmurs present (Cardio) RHYTHM: regular rhythm HEART SOUNDS: S1 normal heart sound present and S2 normal heart sound present GI: COMMON NORMALS: Normal to inspection, nondistended, normoactive bowel sounds present, Soft to palpation and non-tender PALPATION: Yes Soft to palpation Extremity: COMMON NORMALS: no joint enlargement and no pedal edema Neuro: COMMON NORMALS: patient oriented x3 and moves all extremities S ENSORIUM/ORIENTATION: Yes alert Skin: COMMON NORMALS: no rashes or lesions noted GENERAL SKIN EXAM: no rashes or lesions noted Data 02/18/25 03:41 02/18/25 03:41 Micro: Microbiology 02/18/25 08:52 Blood Culture - Preliminary Blood SPECIMEN COLLECTED 02/18/25 08:50 Blood Culture - Preliminary Blood SPECIMEN COLLECTED A&P Assessment and plan 1. Pneumothorax on left: 2. Hypertension: 3. GERD without esophagitis: 4. Osteoarthritis of knees, bilateral: Plan: Pneumothorax Reviewed vitals, requested repeat chest x-ray, reviewed with persistent residual pneumothorax. Discussed with him. Discussed with nursing request to increase oxygen flow up to 5 L with either high flow cannula versus mask with humidifier to help speed up resolution of pneumothorax. Discussed with him. Will reassess chest x-ray in the morning. Continue to monitor oxygenation. Cough so far has improved. Monitor for progression, respiratory failure or hemodynamic decompensation. Discussed with machine adjuster leader case trim. - Continuous cardiac monitoring - Tessalon Perles 200 mg p.o. 3 times daily as needed for persistent cough - Respiratory viral panel ordered, reviewed, negative. Possible dental abscess reported Reviewed face CT, noted epic lucency around left second molar. Discussed with him. Discussed needing dental evaluation for dental infection, possible extraction, risk of unchecked spread of infection, distal spread of infection with setting of diabetes, need for expedient evaluation as soon as he is done with his hospitalization. He verbalized understanding and plans to do so. Continuation of antibiotic in the meantime. Reviewed vitals, afebrile, reviewed CBC, noted mild leukocytosis 12. Blood cultures obtained. Unasyn for now. Monitor for risk of C. difficile, SJS. DM 2: Discussed with him new diagnosis of diabetes, A1c found to be 6.9. He is not aware of prior diagnosis of diabetes or prediabetes. Noted hyperglycemia. Discussed continued medical treatment with initiation of metformin. Will need continued follow-up. Consult carbohydrate diet. Requesting education. Depression Anxiety - Continue home medical occasion Abilify 30 mg daily, Venlafaxine 75mg PO dly HTN -Continue home medication lisinopril 20 mg PO dly Osteoarthritis of bilateral knees On home medication meloxicam 15mg PO dly- hold. Continue gabapentin 300 mg PO dly GERD Continue home medication Protonix 40 mg dly Nicotine dependence -Nicotine patch 21 g daily -Smoking cessation CODE STATUS: Full code GI prophylaxis: Protonix 40 mg p.o. daily VTE prophylaxis: Lovenox 40 mg dly subq PDMP PDMP Reviewed: Not Reviewed Attestations 2 Medical Necessity Statement*: Continue assessment and management of left-sided small pneumothorax. and High MDM includes amount and/or complexity of data reviewed/ordered [ resulted lab(s)/test(s), ordered lab(s)/test(s) and other healthcare professional discussion] and described risk of complication, morbidity or mortality of management as documented Diagnoses Pneumothorax on left J93.9 Hypertension I10 GERD without esophagitis K21.9 Osteoarthritis of knees, bilateral M17.0
[2025-02-18] MEDS: ampicillin-sulbactam 3 GM in sodium chloride 0.9% (plus) 50 ML IV ×2 (17:43→20:19)
[2025-02-19] VITALS (14 sets, daily range): BP systolic 113–161; BP diastolic 61–96; PULSE 72–98; RESP 16–17; TEMP 36.2–36.9; O2SAT 94–100
[2025-02-19] MEDS: venlafaxine ER (24HR) 75 mg Capsule 225 MG PO (04:37)
[2025-02-19] MEDS: ampicillin-sulbactam 3 GM in sodium chloride 0.9% (plus) 50 ML IV ×4 (04:38→20:49)
--- NOTE | 2025-02-19 06:00 | XRR_ITS ---
PROCEDURE INFORMATION: Exam: XR Chest Exam date and time: 02/19/2025 7:27 AM Age: 54 years old Clinical indication: Condition or disease; Lung condition and disease; Pneumothorax; Additional info: Follow-up ptx TECHNIQUE: Imaging protocol: Radiologic exam of the chest. Views: 1 view. COMPARISON: CR XR chest 1V portable [id number] 02/18/2025 8:05 AM FINDINGS: Lungs: No pulmonary edema or focal consolidation. Minimal bibasilar opacities similar to prior may reflect atelectasis/scarring. Pleural spaces: Small left pneumothorax does not appear significantly changed. No pleural effusion. Heart/Mediastinum: Cardiomediastinal silhouette is normal. Bones/joints: No acute abnormality. XR/XR chest 1V portable [id number] IMPRESSION: No significant interval change. Stable appearing small left pneumothorax.
--- NOTE | 2025-02-19 08:47 | PC.CHAP ---
Pastoral Care Encounter/Spiritual Assessment Type of Contact [] Declined sack filler visit [] Patient/Family/Request visit [] Outpatient visit [] Follow-up visit [] Physician referral [] Code/Alert [x] Routine visit [] Staff referral [] Actively dying [x] Patient sleeping [] Family support [] [] Out of room [] Palliative care [] [] Receiving care in room [] Pre-surgical visit [] Trauma [] Long length of stay [] ICU visit [] Other: Relational/Emotional Strength [] Patient feels connected with others/family/visitors/staff [] Distress [] Loneliness/isolation [] Abandonment Spirituality of Patient [] Person of [place]ulia [] Attends Sikh of their [place] [] Believes in Prayer [] Reads Bible or Scientology materials [] There are Spiritual issues to be addressed 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 [x] Prayer [] Active listening [] Non-anxious presence [] Spiritual/emotional support [] Crisis/trauma care [] Spiritual counseling [] Bereavement support [] Provided bereavement packet [] Provided Bible/devotional materials [] Provided toy/stuffed animal, coloring book to patient or family member [] Provided Communion [] Anointing/[place] [] Salvation [] Completed spiritual assessment [] Other: Impact on Illness or Injury [] Angry [] Fearful [] Anxious [] Often cries [] Exhaustion [] Unable to work [] Unable to attend islam [] Unable to walk/stand [] Unable to read [] Unable to drive [] Unable to eat/drink [] Unable to sleep [] Unable to be with family [] Patient intubated [] Other: Summary Time spent with patient
--- NOTE | 2025-02-19 12:19 | PM.PN ---
Subjective Subjective: Denies any new symptoms. No chest pain. Vitals/I&O/Wt Last Vital Signs Temp 97.1 F L 02/19/25 11:39 Pulse 79 02/19/25 11:39 Resp 16 02/19/25 11:39 BP 114/61 02/19/25 11:39 Pulse Ox 100 02/19/25 11:39 O2 Del Method Nasal Cannula 02/19/25 11:39 O2 Flow Rate 7 02/19/25 11:20 02/18/25 02/19/25 02/19/25 22:59 06:59 14:59 Intake Total 580 / 1060 1650 / 2710 240 / 240 Output Total 800 / 1525 1200 / 2725 350 / 350 Balance -220 / -465 450 / -15 -110 / -110 Weight last 48 hrs Weight 110.223 kg Weight 110.421 kg Weight 107.076 kg Physical Exam Const: COMMON NORMALS: patient oriented x3 and alert GENERAL APPEARANCE: cooperative ORIENTATION/CONSCIOUSNESS: Yes awake HENMT: COMMON NORMALS: oropharynx normal Neck/C-Spine: COMMON NORMALS: no JVD Resp: COMMON NORMALS: normal respiratory effort and clear to auscultation bilaterally AUSCULTATION: clear to auscultation bilaterally Cardio: COMMON NORMALS: no JVD, regular rhythm, S1 normal heart sound present, S2 normal heart sound present and No murmurs present (Cardio) RHYTHM: regular rhythm HEART SOUNDS: S1 normal heart sound present and S2 normal heart sound present GI: COMMON NORMALS: Normal to inspection, nondistended, normoactive bowel sounds present, Soft to palpation and non-tender PALPATION: Yes Soft to palpation Extremity: COMMON NORMALS: no joint enlargement and no pedal edema Neuro: COMMON NORMALS: patient oriented x3 and moves all extremities SENSORIUM/ORIENTATION: Yes alert Skin: COMMON NORMALS: no rashes or lesions noted GENERAL SKIN EXAM: no rashes or lesions noted Data 02/18/25 03:41 02/18/25 03:41 Micro: Microbiology 02/18/25 08:52 Blood Culture - Preliminary Blood NEGATIVE TO DATE 02/18/25 08:50 Blood Culture - Preliminary Blood NEGATIVE TO DATE A&P Assessment and plan 1. Pneumothorax on left: 2. Hypertension: 3. GERD without esophagitis: 4. Osteoarthritis of knees, bilateral: Plan: Pneumothorax Reviewed vitals, reviewed chest x-ray. On my interpretation pneumothorax with slight improvement,, per radiology interpretation still persistent. Discussed with pulmonology, appreciate consultation. Will further increase oxygen to nonrebreather 15 L flow. Reassess chest x-ray. Trend to resolution. Discussed with patient. Cough so far has improved. Monitor for progression, respiratory failure or hemodynamic decompensation. Discussed with correctional casework specialist. - Continuous cardiac monitoring - Tessalon Perles 200 mg p.o. 3 times daily as needed for persistent cough - Respiratory viral panel negative. Possible dental abscess reported Discussed with him need for urgent dental evaluation after discharge-he will look for dentist in [place] while he is here. Reviewed face CT, noted epic lucency around left second molar. Discussed with him. Discussed needing dental evaluation for dental infection, possible extraction, risk of unchecked spread of infection, distal spread of infection with setting of diabetes, need for expedient evaluation as soon as he is done with his hospitalization. He verbalized understanding and plans to do so. Continuation of antibiotic in the meantime. Reviewed vitals, afebrile, reviewed CBC, noted mild leukocytosis 12. Blood cultures reviewed. Unasyn for now. Monitor for risk of C. difficile, SJS. DM 2: Discussed with him new diagnosis of diabetes, A1c found to be 6.9. He is not aware of prior diagnosis of diabetes or prediabetes. Noted hyperglycemia. Discussed continued medical treatment with initiation of metformin. Will need continued follow-up. Consult carbohydrate diet. Requesting education. Depression Anxiety - Continue home medical occasion Abilify 30 mg daily, Venlafaxine 75mg PO dly HTN -Continue home medication lisinopril 20 mg PO dly Osteoarthritis of bilateral knees On home medication meloxicam 15mg PO dly- hold. Continue gabapentin 300 mg PO dly GERD Continue home medication Protonix 40 mg dly Nicotine dependence -Nicotine patch 21 g daily -Smoking cessation CODE STATUS: Full code GI prophylaxis: Protonix 40 mg p.o. daily VTE prophylaxis: Lovenox 40 mg dly subq PDMP PDMP Reviewed: Not Reviewed Attestations Medical Necessity Statement*: Admission over 2 midnights has been necessary for assessment and management of persistent pneumothorax. and High MDM includes described risk of complication, morbidity or mortality of management as documented Diagnoses Pneumothorax on left J93.9 Hypertension I10 GERD without esophagitis K21.9 Osteoarthritis of knees, bilateral M17.0
--- NOTE | 2025-02-19 17:26 | PM.CONSULT ---
Providers/Reason For Consult Consulting Physician/Specialty*: Dr Alcides Huffman Reason for Consult*: Left pneumothorax Attending Physician: Efren Smyth Primary Care Provider: Shalom Moffett History of Present Illness History of Present Illness Alden Velez Jr is a 54 year old male with pmhx of smoking cigarettes gets a/w a left spontanous pneumothorax. Symptoms started 3 days ago with cough and shortness of breath. CXR in ED showed ptx. confirmed on CT. He was given dexamethasone and pain meds CXR today shows persistent ptx and I was consulted for further management Medications/Allergies Home Medications ?Medication ?Instructions ?Recorded ?Confirmed ?Last Taken ?Type lisinopril 20 mg tablet 20 mg PO DAILY 30 days #30 tabs 06/29/24 02/17/25 02/15/25 Rx albuterol sulfate 90 mcg/actuation 2 puff inhalation QID PRN 07/08/24 02/17/25 Unknown History aerosol inhaler (Ventolin HFA) Shortness Of Breath Or Wheezing budesonide-formoterol HFA 160 2 inh inhalation DAILY 08/06/24 02/17/25 Unknown History mcg-4.5 mcg/actuation aerosol inhaler (Symbicort) meloxicam 15 mg tablet 15 mg PO DAILY 08/06/24 02/17/25 02/15/25 History ondansetron HCl 8 mg tablet 8 mg PO Q8H PRN Nausea 08/06/24 02/17/25 Unknown History aripiprazole 30 mg tablet (Abilify) 30 mg PO DAILY #30 tabs 01/10/25 02/17/25 Unknown Rx benztropine 0.5 mg tablet 0.5 mg PO BEDTIME #30 tabs 01/10/25 02/17/25 02/15/25 Rx gabapentin 300 mg capsule 300 mg PO DAILY #30 caps 01/10/25 02/17/25 02/15/25 Rx venlafaxine 75 mg capsule,extended 225 mg (3 x 75 mg) PO QAM 30 days 01/23/25 02/17/25 02/15/25 Rx release 24 hr #90 caps amoxicillin 875 mg-potassium 1 tab PO BID x7d 02/17/25 02/17/25 02/15/25 History clavulanate 125 mg tablet nicotine 14 mg/24 hr daily See Rx Instructions .Route .COMPLEX 02/17/25 02/17/25 Unknown History transdermal patch pantoprazole 40 mg tablet,delayed 40 mg PO DAILY 02/17/25 02/17/25 02/15/25 History release prednisone 20 mg tablet 20 mg PO DAILY x5days 02/17/25 02/17/25 02/15/25 History Allergies Allergy/AdvReac Type Severity Reaction Status Date / Time adhesive tape Allergy ALGY-Bliste Verified 02/17/25 11:00 r Current Medications Generic Name Dose Route Start Last Admin Trade Name Freq PRN Reason Stop Dose Admin Albuterol Sulfate 2.5 mg 02/17/25 16:43 02/17/25 16:55 Albuterol 2.5 Mg/3 Ml Neb INHALATION 2.5 mg Q6H.RESP PRN Administration SHORTNESS OF BREATH Albuterol Sulfate 2.5 mg 02/17/25 20:00 02/19/25 15:23 Albuterol 2.5 Mg/0.5 Ml Neb INHALATION 2.5 mg QID.RESPIRATORY HAILEY Administration Aripiprazole 30 mg 02/18/25 05:00 02/19/25 04:37 Aripiprazole 30 Mg Tablet PO 30 mg DAILY HAILEY Administration Benztropine Mesylate 0.5 mg 02/17/25 21:00 02/18/25 20:19 Benztropine 1 Mg Tablet PO 0.5 mg BEDTIME HAILEY Administration Budesonide 0.5 mg 02/17/25 20:00 02/19/25 08:50 Budesonide 0.5 Mg/2 Ml Neb INHALATION 0.5 mg BID.RESPIRATORY HAILEY Administration Enoxaparin Sodium 40 mg 02/17/25 16:30 02/19/25 17:08 Enoxaparin 40 Mg/0.4 Ml Syringe SUBCUT 40 mg Q24H HAILEY Administration Gabapentin 300 mg 02/18/25 05:00 02/19/25 04:37 Gabapentin 300 Mg Capsule PO 300 mg DAILY HAILEY Administration Guaifenesin 1,200 mg 02/17/25 17:00 02/19/25 17:08 Guaifenesin 600 Mg Tablet PO 1,200 mg BID HAILEY Administration Ampicillin Sodium/Sulbactam 50 mls @ 100 mls/hr 02/18/25 15:00 02/19/25 17:08 Sodium 3 gm/ Sodium Chloride IV 100 mls/hr Q6H HAILEY Administration Protocol Insulin Human Lispro 0 unit 02/18/25 08:00 02/19/25 12:00 Insulin Lispro 100 Unit/1 Ml SUBCUT Not Given WM&BEDTIME HAILEY Protocol Lisinopril 20 mg 02/18/25 05:00 02/19/25 04:37 Lisinopril 20 Mg Tablet PO 20 mg DAILY HAILEY Administration Lorazepam 0.5 mg 02/17/25 23:02 02/17/25 23:34 Lorazepam 0.5 Mg Tablet PO 0.5 mg Q6H PRN Administration ANXIETY Nicotine 1 patch 02/18/25 05:00 02/19/25 04:37 Nicotine 21 Mg Patch TRANSDERMA 1 patch DAILY HAILEY Administration Pantoprazole Sodium 40 mg 02/18/25 05:00 02/19/25 04:[address] 40 Mg Tablet PO 40 mg DAILY HAILEY Administration Venlafaxine HCl 225 mg 02/18/25 05:00 02/19/25 04:37 Venlafaxine Er (24hr) 75 Mg Capsule PO 225 mg QAM HAILEY Administration PFSH Acute PFSH: Medical History (Updated 02/17/25 @ 17:25 by Aishwarya Panchal NP) Psychiatric care Osteoarthritis of knees, bilateral Social History Smoking and tobacco/nicotine status: current every day tobacco/nicotine user cigarettes Packs smoked per day: 1 Vitals/I&O/Wt Last Vital Signs Temp 97.1 F L 02/19/25 11:39 Pulse 83 02/19/25 15:23 Resp 16 02/19/25 15:23 BP 121/79 02/19/25 15:19 Pulse Ox 100 02/19/25 15:23 O2 Del Method Non-Rebreather 02/19/25 15:23 O2 Flow Rate 15 02/19/25 15:23 02/19/25 02/19/25 02/19/25 06:59 14:59 22:59 Intake Total 1650 / 2710 290 / 290 Output Total 1200 / 2725 350 / 350 250 / 600 Balance 450 / -15 -60 / -60 -250 / -310 Weight last 48 hrs Weight 243 lb Weight 243 lb 7 oz Physical Exam Narrative: Per RN General: alert, NAD with NRB mask HEENT: EOMI Pulmonary: Diminished breath sounds bilaterally Cardiovascular: rrr, nl s1s2, Abdomen: soft, nt, nd, no r/g, Extremities: no edema Neurologic: grossly intact Agree with above exam Data 02/18/25 03:41 02/18/25 03:41 Micro: Microbiology 02/18/25 08:52 Blood Culture - Preliminary Blood NEGATIVE TO DATE 02/18/25 08:50 Blood Culture - Preliminary Blood NEGATIVE TO DATE A&P Assessment and plan 1. Pneumothorax on left: Plan: # left pneumothorax- secondary spontanous most likely due to copd I reviewed the CT myself, interpretted findings independently and showed patient the images explaining findings. Patient was coughing excessively that induced the ptx. Will place patient on 100% NRB overnight and reassess cxr in AM IF persists but he is asymptomatic, may consider discharge with close follow up with thoracic surgery and with me on an outpatient basis # copd # smoker Counselled him to stop smoking cigarettes Medical decision making level-high High MDM includes number and complexity of problems actively addressed during encounter, amount and/or complexity of data reviewed/ordered [ previous or external records, resulted lab(s)/test(s), ordered lab(s)/test(s), independent historian, independent test interpretation and other healthcare professional discussion] and described risk of complication, morbidity or mortality of management as documented This documentation was created by [employer] director patient financial services software (known for inherent director patient financial services error). Every effort was made to assure accuracy of director patient financial services. Any obvious errors or omissions should be clarified with the author of the document PDMP PDMP Reviewed: Not Reviewed Coding Level of Care Code 61229 Diagnoses Pneumothorax on left J93.9
[2025-02-20] VITALS (110 sets, daily range): BP systolic 88–151; BP diastolic 52–112; PULSE 70–115; RESP 12–27; TEMP 36.7; O2SAT 90–100
[2025-02-20] MEDS: ampicillin-sulbactam 3 GM in sodium chloride 0.9% (plus) 50 ML IV ×4 (04:39→20:40)
[2025-02-20] MEDS: venlafaxine ER (24HR) 75 mg Capsule 225 MG PO (04:39)
--- NOTE | 2025-02-20 06:00 | XRR_ITS ---
PROCEDURE INFORMATION: Exam: XR Chest Exam date and time: 02/20/2025 8:02 AM Age: 54 years old Clinical indication: Condition or disease; Lung condition and disease; Pneumothorax; Additional info: Follow-up ptx to resolution TECHNIQUE: Imaging protocol: Radiologic exam of the chest. Views: 1 view. COMPARISON: CR XR chest 1V portable [id number] 02/19/2025 7:27 AM FINDINGS: Lungs: Well-aerated right lung. Pleural spaces: Redemonstrated left-sided pneumothorax, increased in thickness along the mid to lower lateral left lung measuring up to 2.7 cm in thickness on the current study. New mild opacity in the lateral left lower lobe focally, more favored to reflect atelectasis due to the pneumothorax than an infectious process. No significant pleural effusion. Heart/Mediastinum: Unremarkable. No cardiomegaly. Bones/joints: No new or acute appearing osseous abnormality. XR/XR chest 1V portable [id number] IMPRESSION: 1. Redemonstrated left-sided pneumothorax, significantly increased in thickness along the mid to lower lateral left lung measuring up to 2.7 cm in thickness on the current study. Previously the pneumothorax was only evident along the upper portion of the left lung measuring 1.2 cm. 2. New mild opacity in the lateral left lower lobe focally, more favored to reflect atelectasis due to the pneumothorax than an infectious process.
[2025-02-20 07:07] LABS: Hematocrit 42.0 % (37-53); Hemoglobin 14.10 g/dL (11.27-16.99); Mean Corpuscular HGB Conc 33.6 g/dL (30-55); Mean Corpuscular Hemoglobin 31.5 pg (27-33); Mean Corpuscular Volume 94.0 fl (82-101); Nucleated Red Blood Cells % 0 %; Platelet Count 258 10^3/cmm (157-399); Red Blood Count 4.47 10^6/uL (3.85-5.65); White Blood Count 14.20 10^3/uL (3.29-11.43)
--- NOTE | 2025-02-20 09:04 | PM.CONSULT ---
Providers/Reason For Consult Consulting Physician/Specialty*: dr gómez Reason for Consult*: pneumothorax Attending Physician: Efren Smyth Primary Care Provider: Shalom Moffett History of Present Illness History of Present Illness Alden Velez Jr is a 54 year old male who was admitted for worsening cough. The patient is a [id number] smoker. Reports intermittent coughing at times. He has not been diagnosed with COPD. He is not in respiratory distress. He does not have an oxygen requirement. He is able to speak in full sentences. Currently he reports that he feels well and has no complaints. Surgery was consulted due to persistent pneumothorax on repeat imaging. Pulmonology has been following the patient. Surgery was consulted for consideration of chest tube placement Medications/Allergies Home Medications ?Medication ?Instructions ?Recorded ?Confirmed ?Last Taken ?Type lisinopril 20 mg tablet 20 mg PO DAILY 30 days #30 tabs 06/29/24 02/17/25 02/15/25 Rx albuterol sulfate 90 mcg/actuation 2 puff inhalation QID PRN 07/08/24 02/17/25 Unknown History aerosol inhaler (Ventolin HFA) Shortness Of Breath Or Wheezing budesonide-formoterol HFA 160 2 inh inhalation DAILY 08/06/24 02/17/25 Unknown History mcg-4.5 mcg/actuation aerosol inhaler (Symbicort) meloxicam 15 mg tablet 15 mg PO DAILY 08/06/24 02/17/25 02/15/25 History ondansetron HCl 8 mg tablet 8 mg PO Q8H PRN Nausea 08/06/24 02/17/25 Unknown History aripiprazole 30 mg tablet (Abilify) 30 mg PO DAILY #30 tabs 01/10/25 02/17/25 Unknown Rx benztropine 0.5 mg tablet 0.5 mg PO BEDTIME #30 tabs 01/10/25 02/17/25 02/15/25 Rx gabapentin 300 mg capsule 300 mg PO DAILY #30 caps 01/10/25 02/17/25 02/15/25 Rx venlafaxine 75 mg capsule,extended 225 mg (3 x 75 mg) PO QAM 30 days 01/23/25 02/17/25 02/15/25 Rx release 24 hr #90 caps amoxicillin 875 mg-potassium 1 tab PO BID x7d 02/17/25 02/17/25 02/15/25 History clavulanate 125 mg tablet nicotine 14 mg/24 hr daily See Rx Instructions .Route .COMPLEX 02/17/25 02/17/25 Unknown History transdermal patch pantoprazole 40 mg tablet,delayed 40 mg PO DAILY 02/17/25 02/17/25 02/15/25 History release prednisone 20 mg tablet 20 mg PO DAILY x5days 02/17/25 02/17/25 02/15/25 History Allergies Allergy/AdvReac Type Severity Reaction Status Date / Time adhesive tape Allergy ALGY-Bliste Verified 02/17/25 11:00 r Current Medications Generic Name Dose Route Start Last Admin Trade Name Freq PRN Reason Stop Dose Admin Albuterol Sulfate 2.5 mg 02/17/25 16:43 02/17/25 16:55 Albuterol 2.5 Mg/3 Ml Neb INHALATION 2.5 mg Q6H.RESP PRN Administration SHORTNESS OF BREATH Albuterol Sulfate 2.5 mg 02/17/25 20:00 02/20/25 08:17 Albuterol 2.5 Mg/0.5 Ml Neb INHALATION 2.5 mg QID.RESPIRATORY HAILEY Administration Aripiprazole 30 mg 02/18/25 05:00 02/20/25 04:39 Aripiprazole 30 Mg Tablet PO 30 mg DAILY HAILEY Administration Benztropine Mesylate 0.5 mg 02/17/25 21:00 02/19/25 20:50 Benztropine 1 Mg Tablet PO 0.5 mg BEDTIME HAILEY Administration Budesonide 0.5 mg 02/17/25 20:00 02/20/25 08:17 Budesonide 0.5 Mg/2 Ml Neb INHALATION 0.5 mg BID.RESPIRATORY HAILEY Administration Enoxaparin Sodium 40 mg 02/17/25 16:30 02/19/25 17:08 Enoxaparin 40 Mg/0.4 Ml Syringe SUBCUT 40 mg On Hold: 02/20/25 07:56 Q24H HAILEY Administration Gabapentin 300 mg 02/18/25 05:00 02/20/25 04:39 Gabapentin 300 Mg Capsule PO 300 mg DAILY HAILEY Administration Guaifenesin 1,200 mg 02/17/25 17:00 02/20/25 04:39 Guaifenesin 600 Mg Tablet PO 1,200 mg BID HAILEY Administration Ampicillin Sodium/Sulbactam 50 mls @ 100 mls/hr 02/18/25 15:00 02/20/25 08:40 Sodium 3 gm/ Sodium Chloride IV 100 mls/hr Q6H HAILEY Administration Protocol Insulin Human Lispro 0 unit 02/18/25 08:00 02/20/25 08:41 Insulin Lispro 100 Unit/1 Ml SUBCUT 2 unit WM&BEDTIME HAILEY Administration Protocol Lisinopril 20 mg 02/18/25 05:00 02/20/25 04:39 Lisinopril 20 Mg Tablet PO 20 mg DAILY HAILEY Administration Lorazepam 0.5 mg 02/17/25 23:02 02/17/25 23:34 Lorazepam 0.5 Mg Tablet PO 0.5 mg Q6H PRN Administration ANXIETY Nicotine 1 patch 02/18/25 05:00 02/20/25 04:39 Nicotine 21 Mg Patch TRANSDERMA 1 patch DAILY HAILEY Administration Pantoprazole Sodium 40 mg 02/18/25 05:00 02/20/25 04:[address] 40 Mg Tablet PO 40 mg DAILY HAILEY Administration Venlafaxine HCl 225 mg 02/18/25 05:00 02/20/25 04:39 Venlafaxine Er (24hr) 75 Mg Capsule PO 225 mg QAM HAILEY Administration PFSH Acute PFSH: Medical History (Updated 02/17/25 @ 17:25 by Aishwarya Panchal NP) Psychiatric care Osteoarthritis of knees, bilateral Social History Smoking and tobacco/nicotine status: current every day tobacco/nicotine user cigarettes Packs smoked per day: 1 Vitals/I&O/Wt Last Vital Signs Temp 98.0 F 02/20/25 07:27 Pulse 94 02/20/25 08:21 Resp 18 02/20/25 08:05 BP 134/88 02/20/25 07:27 Pulse Ox 99 02/20/25 08:05 O2 Del Method Non-Rebreather 02/20/25 08:05 O2 Flow Rate 15 02/20/25 08:05 02/19/25 02/20/25 02/20/25 22:59 06:59 14:59 Intake Total 100 / 390 50 / 440 Output Total 650 / 1000 300 / 1300 Balance -550 / -610 -250 / -860 Weight last 48 hrs Weight 244 lb 6 oz Weight 243 lb Physical Exam Narrative: Chest: Unlabored breathing room air. No lymphadenopathy. No accessory respiratory muscle use. Speaking in full sentences. Heart: Regular rate and rhythm. Abdomen: Soft, nontender, nondistended. No masses or lymphadenopathy. Data 02/20/25 06:24 02/18/25 03:41 Micro: Microbiology 02/18/25 08:52 Blood Culture - Preliminary Blood NEGATIVE TO DATE 02/18/25 08:50 Blood Culture - Preliminary Blood NEGATIVE TO DATE A&P Assessment and plan 1. Pneumothorax on left: Plan: 54-year-old male [id number] smoker who was admitted with worsening cough. Found to have a left pneumothorax which is persistent on repeat imaging. Patient is not in respiratory distress. Patient does not have an oxygen requirement. Pulmonology and hospitalist discussed the possibility of surgery placing a chest tube. I have discussed the case extensively with Dr. Ricketts, Dr. Roger, the patient and his sister. I have answered everyone's questions. Given the fact that he is not in respiratory distress and does not have an oxygen requirement and also given the fact that this is a spontaneous pneumothorax that can be secondary to emphysema I think the patient should be transferred immediately for evaluation by the thoracic surgery team. I am comfortable and able to place a chest tube to evacuate the pneumothorax however I do not think it is the best course of action since there is a risk for parenchymal injury, tearing of bleb which could result in a bronchopleural fistula and possibly . I think the chest tube should replaced by thoracic surgeon who can address the complications if they arise. I have explained this to the patient and the hospitalist. At this point the patient wants to be transferred without a chest tube. I will remain available should the patient change his mind. PDMP PDMP Reviewed: Not Reviewed Coding Level of Care Code 32144 Diagnoses Pneumothorax on left J93.9
--- NOTE | 2025-02-20 10:20 | PC.NURSE ---
Report called to ICU at this time
--- NOTE | 2025-02-20 10:52 | XRR_ITS ---
PROCEDURE INFORMATION: Exam: XR Chest Exam date and time: 02/20/2025 11:04 AM Age: 54 years old Clinical indication: Device placement; Other: Chest tube placement TECHNIQUE: Imaging protocol: Radiologic exam of the chest. Views: 1 view. COMPARISON: CR XR chest 1V portable [id number] 02/20/2025 8:02 AM FINDINGS: Tubes, catheters and devices: There is a new left basilar pigtail chest tube with the pigtail projecting over the medial left lung base. Lungs: Improved aeration in the lateral left lower lobe compared to the prior. Well-aerated right lung. Pleural spaces: Decreased maximum thickness of known left-sided pneumothorax now measuring up to 13 mm along the lateral lower lobe, previously measuring up to 27 mm. No significant pleural effusion. Heart/Mediastinum: Unremarkable. No cardiomegaly. Bones/joints: No visible acute appearing osseous abnormality. XR/XR chest 1V portable [id number] IMPRESSION: 1. There is a new left basilar pigtail chest tube with the pigtail projecting over the medial left lung base. 2. Decreased maximum thickness of known left-sided pneumothorax now measuring up to 13 mm along the lateral lower lobe, previously measuring up to 27 mm.
--- NOTE | 2025-02-20 11:15 | PM.CCN ---
Critical Care Event Note Was consulted by Dr. Smyth from the hospitalist team for placement of a chest tube. Patient was admitted 2 days ago with a small pneumothorax that was being monitored. He is not requiring any oxygen. Pneumothorax had increased in size significantly. Reviewed the CT with radiology as well as the x-ray done this morning they concurred that there was a significant increase in size. CT done initially at the time of admission does not show any blebs in the lung tissue. Met with the patient and his sister was on speaker phone at the patient's request. Reviewed risks and benefits. They would prefer not to be transferred if this is successful. Advised him that that would be up to Dr. Smyth that he would review the case after the chest tube was placed. They do wish to proceed with that they understand risks and benefits explained risks including possible injury to the lung infection bleeding and failure of the tube to fully evacuate the pneumothorax. Discussed with the patient this is usually done under conscious sedation with additional local anesthesia and he wishes to proceed his sister is in agreement. Recommend that the patient be transferred to the ICU for the procedure to be done to where the chest tube can be monitored more closely. Dr. Smyth is made arrangements for the patient to be transferred down to the ICU where the procedure will be done see procedure note. Postprocedure patient is drowsy chest x-ray shows tube in the lower portion of the lung but is pulling air there is already been a reduction in the pneumothorax compared to the x-ray done earlier today. I relayed to Dr. Steel that the procedure was successfully completed the chest x-ray should be repeated in 1 to 2 hours to reevaluate evacuation of pneumothorax. The high probability of a clinically significant, sudden or life threatening deterioration of the patient's respiratory system(s) required my full and direct attention, intervention and personal management. The critical care time is as shown. This time is in addition to time spent performing any reported procedures but includes the following: [x] Data and vital sign review and interpretation [x] Patient assessment, examination and intervention [x] Documentation [x] Medication orders and management Critical Care Time Code activated: No Critical Care Time (min): 45 Procedures Chest Tube^ Chest Tube 1: Chest tube location: Mid-Axillary Chest Size of tube: 14 Chest tube procedure: Yes betadine prep and sterile drapes applied Tube sutured to skin: Yes Anesthesia: 1% Lidocaine Volume anesthetic (ml): 10 Incision made with: #11 blade Post procedure: sutured to skin and sterile dressing applied Tube Drainage: fluid Amount of initial drainage (ml): 1 Post procedure CXR?: Yes Patient tolerated procedure: Yes Progress: Dwain pigtail catheter placed. Anatomical landmarks confirmed to the anterior axillary line on the left. Timeout done patient confirmed he wishes to proceed with the chest tube placement. Conscious sedation initiated with Versed and fentanyl and titrated to appropriate conscious sedation local anesthetic applied as well. Needle advanced through the chest wall until it entered the pleural space was able to pull air back the wire was then advanced through the needle needle removed. Stab incision made at the site of the wire insertion. The dilator was then placed over the wire without difficulty the Dwain catheter with the insertion guide placed through the chest wall without difficulty catheter advanced and had immediate release of air once the guide was removed. Pigtail catheter sutured in place Vaseline gauze applied and foam tape used to secure further secured to the chest wall. Catheter then connected to Pleur-evac. Chest x-ray confirms placement as the tube is slightly lower in the chest cavity but is decreasing the pneumothorax. Related to Dr. Smyth chest tube was successfully placed without difficulty advised repeating chest x-ray in [address] Smyth will reevaluate patient's condition and appropriateness of remaining in our facility. Procedural Sedation Indications: other (Chest tube placement) ASA class: I Time of last PO intake: 08:00 Preparation: firebrick and refractory tile repairer applied, pulse oximeter, supplemental O2 applied, suction/airway equipment at bedside and IV secured Fentanyl: IV Midazolam: IV Patient tolerated procedure: well Complications: none Additional comments: Procedure sedation start time 1046, procedural sedation complete time 1110. Coding Level of Care Code Critical Care Time Spent (min) 45
[2025-02-20] MEDS: fentaNYL 50 mcg/mL INJ 2mL IVP (11:22)
[2025-02-20] MEDS: midazolam 1 mg/mL INJ 5 ML 5 MG IVP (11:28)
--- NOTE | 2025-02-20 11:29 | PC.NURSE ---
3mg of versed given from 5mg vial per Dr. Childress orders, 2mg wasted witnessed by CRISTINA Garza.
--- NOTE | 2025-02-20 11:30 | PC.NURSE ---
PROCEDURE NOTE Consent obtained and placed in chart for Chest tube placement 1046 Versed Given, see mar Patient draped in sterile fashion per Dr. Melendez 1050 Fentanyl administered, see MAY 1103 Patient hooked to Suction on Pleuvac wet suction per Dr. Melendez's Preference 1110 Procedure ended.
--- NOTE | 2025-02-20 13:00 | XRR_ITS ---
PROCEDURE INFORMATION: Exam: XR Chest Exam date and time: 02/20/2025 11:04 AM Age: 54 years old Clinical indication: Device placement; Chest tube; Additional info: Post chest tube TECHNIQUE: Imaging protocol: Radiologic exam of the chest. Views: 1 view. COMPARISON: CR XR chest 1V portable [id number] 02/20/2025 8:02 AM FINDINGS: Lungs: Unremarkable. No consolidation. Pleural spaces: Pigtail catheter newly present on the left, with persistent but reduced left pneumothorax. Subcutaneous emphysema is present. Heart/Mediastinum: Unremarkable. No cardiomegaly. Bones/joints: Unremarkable. XR/XR chest 1V portable [id number] IMPRESSION: Pigtail type pleural catheter newly present on the left, with persistent but reduced left pneumothorax. Subcutaneous emphysema is present.
[2025-02-20] MEDS: morphine 4 mg/mL SDV 1 mL 2 MG IVP ×2 (14:38→18:40)
--- NOTE | 2025-02-20 15:00 | PC.NURSE ---
Patient reported pain, Notified Dr Sutherland received verbal orders for morphine, orders placed, see MAR.
--- NOTE | 2025-02-20 17:26 | PM.PN ---
Subjective Subjective: Alden Velez Jr is a 54 year old male with pmhx of smoking cigarettes gets a/w a left spontanous pneumothorax. Symptoms started 3 days ago with cough and shortness of breath. CXR in ED showed ptx. confirmed on CT. He was given dexamethasone and pain meds CXR today shows persistent ptx and I was consulted for further management 02/20/2025 Patient had expanding pneumothorax on the left. Coughed a little bit overnight but not excessively. Had on nonrebreather all night as instructed. Vitals/I&O/Wt Last Vital Signs Temp 98.0 F 02/20/25 07:27 Pulse 82 02/20/25 16:55 Resp 17 02/20/25 16:55 BP 128/82 02/20/25 16:55 Pulse Ox 96 02/20/25 16:55 O2 Del Method Nasal Cannula 02/20/25 15:50 O2 Flow Rate 2 02/20/25 15:50 02/20/25 02/20/25 02/20/25 06:59 14:59 22:59 Intake Total 50 / 440 530 / 530 290 / 820 Output Total 300 / 1300 Balance -250 / -860 530 / 530 290 / 820 Weight last 48 hrs Weight 244 lb 6 oz Weight 243 lb Physical Exam Narrative: Per RN General: alert, NAD with NRB mask HEENT: EOMI Pulmonary: Diminished breath sounds bilaterally Cardiovascular: rrr, nl s1s2, Abdomen: soft, nt, nd, no r/g, Extremities: no edema Neurologic: grossly intact Agree with above exam Data 02/20/25 06:24 02/18/25 03:41 A&P Assessment and plan 1. Pneumothorax on left: Plan: # left pneumothorax- secondary spontanous most likely due to copd I reviewed the chest x-ray showing expanding pneumothorax. Discussed case with Dr. Strong. Decision is made to place in a pigtail catheter on the left by Dr. Melendez. Appreciate help. Multiple discussions with Dr. Winn as well from surgery. Appreciate their help. I reviewed chest x-rays done today. Pneumothorax is slightly smaller but persists. Will leave pigtail to suction 20 cm H2O overnight and reassess tomorrow. There is a risk of progression of pneumothorax in spite of the pigtail. He might need a large bore chest tube. Will watch closely. Chest x-ray in a.m. IF it persists but he is asymptomatic, may consider discharge with close follow up with thoracic surgery and with me on an outpatient basis # copd # smoker Medical decision making level-moderat Moderate MDM includes number and complexity of problems actively addressed during encounter, amount and/or complexity of data reviewed/ordered [ previous or external records, resulted lab(s)/test(s), ordered lab(s)/test(s), independent historian, independent test interpretation and other healthcare professional discussion] and described risk of complication, morbidity or mortality of management as documented This documentation was created by [employer] venetian blind cleaner and repairer software (known for inherent venetian blind cleaner and repairer error). Every effort was made to assure accuracy of venetian blind cleaner and repairer. Any obvious errors or omissions should be clarified with the author of the document PDMP PDMP Reviewed: Not Reviewed Attestations Medical Necessity Statement*: Chest tube in place for unstable pneumothorax Coding Level of Care Code 00907 Diagnoses Pneumothorax on left J93.9
--- NOTE | 2025-02-20 18:57 | PM.PN ---
Subjective Subjective: Without chest pain. Off nonrebreather during conversation. Vitals/I&O/Wt Last Vital Signs Temp 98.0 F 02/20/25 07:27 Pulse 82 02/20/25 16:55 Resp 17 02/20/25 16:55 BP 128/82 02/20/25 16:55 Pulse Ox 96 02/20/25 16:55 O2 Del Method Nasal Cannula 02/20/25 15:50 O2 Flow Rate 2 02/20/25 15:50 02/20/25 02/20/25 02/20/25 06:59 14:59 22:59 Intake Total 50 / 440 530 / 530 290 / 820 Output Total 300 / 1300 Balance -250 / -860 530 / 530 290 / 820 Weight last 48 hrs Weight 110.847 kg Weight 110.223 kg Physical Exam Narrative: Sitting up at bedside. Const: COMMON NORMALS: patient oriented x3 and alert GENERAL APPEARANCE: cooperative ORIENTATION/CONSCIOUSNESS: Yes awake HENMT: COMMON NORMALS: oropharynx normal Neck/C-Spine: COMMON NORMALS: no JVD Resp: COMMON NORMALS: normal respiratory effort and clear to auscultation bilaterally AUSCULTATION: clear to auscultation bilaterally Cardio: COMMON NORMALS: no JVD, regular rhythm, S1 normal heart sound present, S2 normal heart sound present and No murmurs present (Cardio) RHYTHM: regular rhythm HEART SOUNDS: S1 normal heart sound present and S2 normal heart sound present GI: COMMON NORMALS: Normal to inspection, nondistended, normoactive bowel sounds present, Soft to palpation and non-tender PALPATION: Yes Soft to palpation Extremity: COMMON NORMALS: no joint enlargement and no pedal edema Neuro: COMMON NORMALS: patient oriented x3 and moves all extremities SENSORIUM/ORIENTATION: Yes alert Skin: COMMON NORMALS: no rashes or lesions noted GENERAL SKIN EXAM: no rashes or lesions noted Data 02/20/25 06:24 02/18/25 03:41 A&P Assessment and plan 1. Pneumothorax on left: 2. Hypertension: 3. GERD without esophagitis: 4. Osteoarthritis of knees, bilateral: Plan: Pneumothorax Received call from [facility] radiologist this morning worsening pneumothorax. Further options considered, discussed with pulmonology, surgery, ED provider. Discussed with patient and his sister. Consideration of transfer, however, consideration of transfer, but with risk of decompensation during transfer, risk of proceeding with chest tube placement. Patient and his sister with consensus to proceed with stabilization of pneumothorax and then further consideration of transfer. Transferred to intensive care unit. Upon placement of chest tube, no airleak during my visit, but small/grade 1 airleak reported earlier by RN. Repeat chest x-ray with improving pneumothorax. He did previously also expressed desire to continue hospitalization here if possible. Discussed consideration of transfer. Per discussion with pulmonology we will go ahead and repeat chest x-ray to further reassess, as discussed with him in case of failure to reexpand will need thoracic surgery assessment. In case of lung reexpansion consider removal of chest tube and additional monitoring for recurrence. Cough so far has improved. But I noticed intermittent cough. Will stop lisinopril. Monitor for progression, respiratory failure or hemodynamic decompensation. Discussed with nursing, shoe parts caser. - Continuous cardiac monitoring - Tessalon Perles 200 mg p.o. 3 times daily as needed for persistent cough - Respiratory viral panel negative. - Add pain control, IV morphine as needed for severe breakthrough, adjust depending on response Possible dental abscess reported Discussed with him need for urgent dental evaluation after discharge-he will look for dentist in [place] while he is here. Reviewed face CT, noted epic lucency around left second molar. Discussed with him. Discussed needing dental evaluation for dental infection, possible extraction, risk of unchecked spread of infection, distal spread of infection with setting of diabetes, need for expedient evaluation as soon as he is done with his hospitalization. He verbalized understanding and plans to do so. Continuation of antibiotic in the meantime. Reviewed vitals, afebrile, reviewed CBC, noted mild leukocytosis 14. Will stop budesonide. Blood cultures reviewed. Unasyn for now. Monitor for risk of C. difficile, SJS. DM 2: Discussed with him new diagnosis of diabetes, A1c found to be 6.9. He is not aware of prior diagnosis of diabetes or prediabetes. Noted hyperglycemia. Discussed continued medical treatment with initiation of metformin. Will need continued follow-up. Consult carbohydrate diet. Requesting education. Depression Anxiety - Continue home medical occasion Abilify 30 mg daily, Venlafaxine 75mg PO dly HTN -Continue home medication lisinopril 20 mg PO dly Osteoarthritis of bilateral knees On home medication meloxicam 15mg PO dly- hold. Continue gabapentin 300 mg PO dly GERD Continue home medication Protonix 40 mg dly Nicotine dependence -Nicotine patch 21 g daily -Smoking cessation CODE STATUS: Full code GI prophylaxis: Protonix 40 mg p.o. daily VTE prophylaxis: Lovenox 40 mg dly subq PDMP PDMP Reviewed: Not Reviewed Attestations Medical Necessity Statement*: Continue admission for assessment and management of unimproved/worsening of pneumothorax with conservative management. Coding Level of Care Code Critical Care >/= 30 minutes Critical care time (in minutes): 35 The high probability of a clinically significant, sudden or life threatening deterioration, as referenced in this documentation, required my full and direct attention, intervention and personal management. The critical care time shown is in addition to time spent performing any reported separately billable procedures and includes the following: [x] Data and vital sign review and interpretation [x] Patient assessment, examination and intervention [x] Medication orders and management [x] Patient/Family updates as able [x] Care Coordination and Documentation. Diagnoses Pneumothorax on left J93.9 Hypertension I10 GERD without esophagitis K21.9 Osteoarthritis of knees, bilateral M17.0
[2025-02-20] MEDS: oxyCODONE 5 mg IR Tab/Cap 10 MG PO (21:39)
--- NOTE | 2025-02-20 21:54 | PC.NURSE ---
Pt continued to complain of pain following morphine dose at beginning of shift. Contacted Dr. Reddy, new orders received. Following infusion of Unasyn noted swelling above IV site. Pt stated it began to burn and he felt it pop when bp cuff inflated. Unable to flush line and line discontinued. No redness or warmth to area. Contacted pharmacy to verify infiltrate tx, stated if symptomatic to apply cool compress.
[2025-02-20] MEDS: morphine 4 mg/mL SDV 1 mL IVP (23:36)
[2025-02-21] VITALS (85 sets, daily range): BP systolic 105–153; BP diastolic 67–113; PULSE 82–118; RESP 9–36; TEMP 36.1; O2SAT 89–97
[2025-02-21] MEDS: ampicillin-sulbactam 3 GM in sodium chloride 0.9% (plus) 50 ML IV ×4 (03:22→21:43)
[2025-02-21 04:04] LABS: Hematocrit 44.6 % (37-53); Hemoglobin 14.90 g/dL (11.27-16.99); Mean Corpuscular HGB Conc 33.4 g/dL (30-55); Mean Corpuscular Hemoglobin 31.7 pg (27-33); Mean Corpuscular Volume 94.9 fl (82-101); Nucleated Red Blood Cells % 0 %; Platelet Count 268 10^3/cmm (157-399); Red Blood Count 4.70 10^6/uL (3.85-5.65); White Blood Count 10.25 10^3/uL (3.29-11.43)
[2025-02-21 04:35] LABS: Anion Gap 14.6 (5-19); Blood Urea Nitrogen 19 mg/dL (6-20); Calcium 9.3 mg/dL (8.5-10.5); Carbon Dioxide 29 mmol/L (22-29); Chloride 98 mmol/L (98-107); Creatinine Clr Calc Pharmacy 151.4836; Glucose 176 mg/dL (65-115); Osmolality Calculated 291 mOsm/kg (285-295); Potassium 4.6 mmol/L (3.5-5.1); Sodium 137 mmol/L (136-145)
[2025-02-21] MEDS: oxyCODONE 5 mg IR Tab/Cap PO ×2 (05:42→21:48)
[2025-02-21] MEDS: venlafaxine ER (24HR) 75 mg Capsule 225 MG PO (05:43)
--- NOTE | 2025-02-21 06:00 | XR_ITS ---
WS: [id number] Portable AP upright chest, 02/21/2025 Clinical Data: Follow-up PTX to resolution Comparison: Portable chest, 02/20/2025 Findings: The left basilar pneumothorax has diminished with only a small residual. There is minimal subcutaneous emphysema adjacent to the pneumothorax. The pigtail catheter remains in the basilar portion of the left pleural space. There is a superior left pleural calcification. The right lung is clear. The pulmonary vascularity is not increased. No pneumonia is seen. The heart is normal. There are monitor leads on the chest wall. XR/XR chest 1V portable [id number] Impression: Further reduction of the left basilar pneumothorax.
--- NOTE | 2025-02-21 11:29 | P.PN_ITS ---
Subjective 2 Subjective: Being visited by his sister. He still having some intermittent cough. However, cough has significantly proved from prior. Vitals/I&O/Wt Last Vital Signs Temp 97.0 F L 02/21/25 08:23 Pulse 87 02/21/25 11:16 Resp 16 02/21/25 11:13 BP 129/93 02/21/25 08:00 Pulse Ox 94 02/21/25 11:13 O2 Del Method Nasal Cannula 02/21/25 11:13 O2 Flow Rate 2 02/21/25 11:13 02/20/25 02/21/25 02/21/25 22:59 06:59 14:59 Intake Total 460 / 990 290 / 1280 290 / 290 Output Total 250 / 250 250 / 500 400 / 400 Balance 210 / 740 40 / 780 -110 / -110 Weight last 48 hrs Weight 104 kg Weight 110.847 kg Physical Exam 2 Const: COMMON NORMALS: patient oriented x3 and alert GENERAL APPEARANCE: c ooperative ORIENTATION/CONSCIOUSNESS: Yes awake HENMT: COMMON NORMALS: oropharynx normal Neck/C-Spine: COMMON NORMALS: no JVD Resp: COMMON NORMALS: normal respiratory effort and clear to auscultation bilaterally AUSCULTATION: clear to auscultation bilaterally Cardio: COMMON NORMALS: no JVD, regular rhythm, S1 normal heart sound present, S2 normal heart sound present and No murmurs present (Cardio) RHYTHM: regular rhythm HEART SOUNDS: S1 normal heart sound present and S2 normal heart sound present GI: COMMON NORMALS: Normal to inspection, nondistended, normoactive bowel sounds present, Soft to palpation and non-tender PALPATION: Yes Soft to palpation Extremity: COMMON NORMALS: no joint enlargement and no pedal edema Neuro: COMMON NORMALS: patient oriented x3 and moves all extremities S ENSORIUM/ORIENTATION: Yes alert Skin: COMMON NORMALS: no rashes or lesions noted GENERAL SKIN EXAM: no rashes or lesions noted Data 02/21/25 03:17 02/21/25 03:17 A&P Assessment and plan 1. Pneumothorax on left: 2. Hypertension: 3. GERD without esophagitis: 4. Osteoarthritis of knees, bilateral: Plan: Pneumothorax Reviewed vitals, CBC, BMP, chest x-ray. Chest x-ray with noted shrinking pneumothorax, but not yet resolved. Discussed with him and his sister, discussed with pulmonology, discussed options of transfer today, reassessment again with further treatment with repeat chest x-ray in the morning, but still with arrangements for transfer in case of lack of expansion with need for thoracic surgery evaluation. Consistent at this time is to repeat chest x-ray in the morning and reevaluate for continuous pressure on the lung and if still not resolved seek transfer. Per discussion we will trial increasing suction to 40. With some residual cough, although overall has been improving. Continue antitussives. Discussed with him and his sister, lisinopril has been stopped in case it was the cause of his cough. Monitor for progression, respiratory failure or hemodynamic decompensation. Discussed with nursing, case finisher. - Continuous cardiac monitoring - Tessalon Perles 200 mg p.o. 3 times daily as needed for persistent cough - Respiratory viral panel negative. - Add pain control, IV morphine as needed for severe breakthrough, adjust depending on response, oxycodone as needed for moderate pain. Centimeter from prior Possible dental abscess reported Discussed with him need for urgent dental evaluation after discharge-he will look for dentist in [place] while he is here. Reviewed face CT, noted epic lucency around left second molar. Discussed with him. Discussed needing dental evaluation for dental infection, possible extraction, risk of unchecked spread of infection, distal spread of infection with setting of diabetes, need for expedient evaluation as soon as he is done with his hospitalization. He verbalized understanding and plans to do so. Continuation of antibiotic in the meantime. Reviewed vitals, afebrile, reviewed CBC, noted mild leukocytosis 14. Will stop budesonide. Blood cultures reviewed. Unasyn for now. Monitor for risk of C. difficile, SJS. DM 2: Discussed with him new diagnosis of diabetes, A1c found to be 6.9. He is not aware of prior diagnosis of diabetes or prediabetes. Noted hyperglycemia. Discussed continued medical treatment with initiation of metformin. Will need continued follow-up. Consult carbohydrate diet. Requesting education. Depression Anxiety - Continue home medical occasion Abilify 30 mg daily, Venlafaxine 75mg PO dly HTN -Continue home medication lisinopril 20 mg PO dly Osteoarthritis of bilateral knees On home medication meloxicam 15mg PO dly- hold. Continue gabapentin 300 mg PO dly GERD Continue home medication Protonix 40 mg dly Nicotine dependence -Nicotine patch 21 g daily -Smoking cessation CODE STATUS: Full code GI prophylaxis: Protonix 40 mg p.o. daily VTE prophylaxis: Lovenox 40 mg dly subq PDMP PDMP Reviewed: Not Reviewed Attestations 2 Medical Necessity Statement*: Continue admission for assessment and management of of pneumothorax unresponsive to conservative management. and High MDM includes amount and/or complexity of data reviewed/ordered [ resulted lab(s)/test(s) and other healthcare professional discussion] and described risk of complication, morbidity or mortality of management as documented Diagnoses Pneumothorax on left J93.9 Hypertension I10 GERD without esophagitis K21.9 Osteoarthritis of knees, bilateral M17.0
[2025-02-21] MEDS: oxyCODONE 5 mg IR Tab/Cap 10 MG PO (12:24)
--- NOTE | 2025-02-21 18:55 | P.PN_ITS ---
Subjective 2 Subjective: Alden Velez Jr is a 54 year old male with pmhx of smoking cigarettes gets a/w a left spontanous pneumothorax. Symptoms started 3 days ago with cough and shortness of breath. CXR in ED showed ptx. confirmed on CT. He was given dexamethasone and pain meds CXR today shows persistent ptx and I was consulted for further management 02/20/2025 Patient had expanding pneumothorax on the left. Coughed a little bit overnight but not excessively. Had on nonrebreather all night as instructed. 02/21/25 Less shortness of breath and chest pain today chest tube to suction. he has been on lisinopril and has been having cough due to that. Vitals/I&O/Wt Last Vital Signs Temp 97.0 F L 02/21/25 08:23 Pulse 105 H 02/21/25 17:00 Resp 15 02/21/25 17:00 BP 133/97 02/21/25 17:00 Pulse Ox 92 02/21/25 17:00 O2 Del Method Nasal Cannula 02/21/25 15:44 O2 Flow Rate 2 02/21/25 15:44 02/21/25 02/21/25 02/21/25 06:59 14:59 22:59 Intake Total 290 / 1280 530 / 530 290 / 820 Output Total 250 / 500 800 / 800 300 / 1100 Balance 40 / 780 -270 / -270 -10 / -280 Weight last 48 hrs Weight 229 lb 4.492 oz Weight 244 lb 6 oz Physical Exam 2 Narrative: General: alert, NAD HEENT: EOMI Pulmonary: Diminished breath sounds bilaterally. chest tube on the left hooked to pleurovac and on suction Cardiovascular: rrr, nl s1s2, Abdomen: soft, nt, nd, no r/g, Extremities: no edema Neurologic: grossly intact Data 02/21/25 03:17 02/21/25 03:17 A&P Assessment and plan 1. Pneumothorax on left: Plan: # left pneumothorax- secondary spontanous most likely due to copd I reviewed the chest x-ray from today showing less pneumothorax but persistent. May have a trapped lung. Discussed case with Dr. Strong. Increase suction to 25 cms of h20 and cxr in am. If ptx persists, he will need a higher level of transfer for thoracic surgery evalutation Pleural vac continues to have a persistent air leak suspicious of bronchopleural fistula # copd # smoker # cough Most likely from lisinopril, stopped. Do not recommend ARBs either Use prn cough suppressants Medical decision making level-high High MDM includes number and complexity of problems actively addressed during encounter, amount and/or complexity of data reviewed/ordered [ previous or external records, resulted lab(s)/test(s), ordered lab(s)/test(s), independent historian, independent test interpretation and other healthcare professional discussion] and described risk of complication, morbidity or mortality of management as documented This documentation was created by [employer] hog trader software (known for inherent hog trader error). Every effort was made to assure accuracy of hog trader. Any obvious errors or omissions should be clarified with the author of the document Patient seen in person today PDMP PDMP Reviewed: Not Reviewed Attestations 2 Medical Necessity Statement*: chest tube in place Coding Level of Care Code 49627 Diagnoses Pneumothorax on left J93.9
[2025-02-22] VITALS (39 sets, daily range): BP systolic 114–155; BP diastolic 85–104; PULSE 86–114; RESP 12–23; TEMP 36.7–36.9; O2SAT 90–96
[2025-02-22] MEDS: oxyCODONE 5 mg IR Tab/Cap PO (02:43)
[2025-02-22] MEDS: ampicillin-sulbactam 3 GM in sodium chloride 0.9% (plus) 50 ML IV ×4 (02:44→20:27)
--- NOTE | 2025-02-22 04:33 | PC.NURSE ---
Spoke with Dr Reddy regarding patient not having morning labs ordered. Dr Reddy stated that patient did not need morning labs drawn.
[2025-02-22] MEDS: venlafaxine ER (24HR) 75 mg Capsule 225 MG PO (05:21)
--- NOTE | 2025-02-22 06:00 | XR_ITS ---
WS: [id number] Portable AP upright chest, 02/22/2025 Clinical Data: Follow up PTX Comparison: Portable chest, 02/21/2025 Findings: The left basilar pneumothorax has resolved. There is still adjacent subcutaneous emphysema. The left basilar pigtail catheter remains in the same position. Right lung is clear. The pulmonary vascularity is not increased. No pneumonia or pneumothorax is seen. There is a healed left midclavicular fracture. Monitor leads are on the chest wall. The remainder of the chest shows no change. XR/XR chest 1V portable [id number] Impression: 1. Clearing of left basilar pneumothorax. 2. Adjacent left subcutaneous emphysema in position of basilar left chest tube remain the same.
--- NOTE | 2025-02-22 10:31 | CTR_ITS ---
PROCEDURE INFORMATION: Exam: CT Chest Without Contrast; Diagnostic Exam date and time: 02/22/2025 11:46 AM Age: 54 years old Clinical indication: Left pneumothorax; Additional info: Left pneumothorax, order edited due to typo. Checking for left pneumothorax. TECHNIQUE: Imaging protocol: Diagnostic computed tomography of the chest without contrast. Radiation optimization: All CT scans at this facility use at least one of these dose optimization techniques: automated exposure control; mA and/or kV adjustment per patient size (includes targeted exams where dose is matched to clinical indication); or iterative reconstruction. COMPARISON: CT chest con [id number] 02/17/2025 11:52 AM RADIATION DOSE METRICS: Total DLP (mGy-cm): 697.89 FINDINGS: Tubes, catheters and devices: Left-sided chest tube terminates in the medial left pleural space. Lungs: Small secretions in the trachea and right mainstem bronchus. Bibasilar atelectasis. Pleural spaces: Small to moderate left anterobasilar pneumothorax, not significantly changed compared with prior chest x-ray when accounting for differences in technique. No pleural effusion. Heart: Heart size is normal. No pericardial effusion. Coronary arteries: Mild coronary artery calcifications. Lymph nodes: No supraclavicular, axillary, mediastinal, or hilar adenopathy. Vasculature: Unremarkable. No aortic aneurysm. Gallbladder and biliary ducts: Cholecystectomy. Bones/joints: No acute fracture or dislocation. Degenerative changes of the thoracic spine. Soft tissues: Moderate left chest wall subcutaneous emphysema CT/CT chest con [id number] IMPRESSION: Small to moderate left anterobasilar pneumothorax status post chest tube placement.
--- NOTE | 2025-02-22 15:52 | P.TS_ITS ---
Transfer Summary Providers Date of Admission: 02/19/25 17:01 Date of Discharge/Transfer: 02/22/25 Attending Provider at Admission: Efren Smyth Attending Provider at Transfer: Efren Smyth Primary Care Provider: Shalom Moffett Transfer Plans: Anticipated date of transfer: 02/22/25 . Diagnoses at Discharge Discharge Diagnosis 1. Pneumothorax on left: Reason for Visit Reason for Visit cough, headache Brief History: Alden Velez Jr is a 54 year old male pmhx HTN, GERD, depression w/ long history of mental health and addiction issues presents to ED today with c/o consistent cough and SOB x3 days. Patient was found to have left pneumothorax on chest x-ray in the ED. Patient reports associated signs and symptoms of constant dull pain to left lower chest- reports 3/10 on pain scale, sweats- felt hot like I had a fever , and ear and tooth pain. Patient saw PCP on 02/13/2025 for po ssible ear infection which was ruled out. PCP suspected possible dental abscess and sent patient with antibiotics, no imaging was completed. Patient has not seen the dentist in the last 2 years. Patient to be admitted to hospitalist services for continued medical management and care. While in the ED a CBC, CMP, Flu/RSV/COVID swab was obtained, reviewed, and results as follows: CBC was WNLs, glucose 129, Osmo 296, otherwise unremarkable. Flu/COVID/RSV negative. While in ED patient received following medication: Dexamethasone 10 mg IVP x 2, Toradol 60 mg IM, Doxycycline 100 mg IV. Hospital Course Hospital Course Small pneumothorax initially managed conservatively with oxygen, with initial improvement but subsequently worse than on presentation, pigtail chest tube placed in the left chest with slow improvement of pneumothorax nearing resolution, but still not resolved despite resolution of initial minor airleak. As per discussion with pulmonology and discussed with patient and his sister would benefit from further evaluation by CT surgery with consideration of removal of chest tube versus further diagnostic and/or intervention measures with possible trapped lung, excluding also possible malignancy or other causes of pneumothorax and difficulties with resolution. He does have history of heavy smoking. Cough has been improving. Viral panel negative. Lisinopril has been discontinued and discussed with him not to continued lisinopril going forward with possible CLARIBEL inhibitor associated cough. May benefit from alternative agent/ARB with discontinuation of lisinopril. During hospitalization additionally treated with Unasyn due to left second mandibular molar suspected infection with noted apical lucency on CT. As discussed with patient and his sister will need to see a dentist as soon as possible after discharge to definitively treat the infection with risk of protracted infection, recurrence of infection with partial treatment with antibiotic, hematogenous spread, risk of severe disabling or life-threatening complications of partially treated infection. Additionally during hospitalization with new diagnosis of diabetes. Managed with sliding scale insulin during hospitalization but will need to oral medication at discharge. A1c 6.9. Diabetes education requested. Consideration of low-dose metformin but cautiously given he has history of cholecystectomy and GI problems may not be able to tolerate metformin. Consideration of additional prescription of glipizide in case does not tolerate initiation of low-dose metformin. Continue to encourage smoking cessation. Physical Exam Narrative: Sitting up at bedside. Accompanied by sister. Const: COMMON NORMALS: patient oriented x3 and alert GENERAL APPEARANCE: cooperative ORIENTATION/CONSCIOUSNESS: Yes awake HENMT: COMMON NORMALS: oropharynx normal Neck/C-Spine: COMMON NORMALS: no JVD Resp: COMMON NORMALS: normal respiratory effort and clear to auscultation bilaterally AUSCULTATION: clear to auscultation bilaterally Cardio: COMMON NORMALS: no JVD, regular rhythm, S1 normal heart sound present, S2 normal heart sound present and No murmurs present (Cardio) RHYTHM: regular rhythm HEART SOUNDS: S1 normal heart sound present and S2 normal heart sound present GI: COMMON NORMALS: Normal to inspection, nondistended, normoactive bowel sounds present, Soft to palpation and non-tender PALPATION: Yes Soft to palpation Extremity: COMMON NORMALS: no joint enlargement and no pedal edema Neuro: COMMON NORMALS: patient oriented x3 and moves all extremities SENSORIUM/ORIENTATION: Yes alert Skin: COMMON NORMALS: no rashes or lesions noted GENERAL SKIN EXAM: no rashes or lesions noted TS Data Studies Completed and Pending Pending at discharge Category Date Time Status CT chest wo con [id number] Routine Cat Scan 02/22/25 10:31 Taken Blood Culture Stat Lab 02/18/25 08:52 Results Completed Studies During Hospitalization Category Date Time Status CT chest wo con [id number] Stat Cat Scan 02/17/25 11:[address] facial bones w con [id number] Routine Cat Scan 02/17/25 16:48 Completed CXRP [XR chest 1V portable [id number]] Q24H Exams 02/20/25 06:00 Completed CXRP [XR chest 1V portable [id number]] Q24H Exams 02/21/25 06:00 Completed XR chest 1V portable [id number] Q24H Exams 02/19/25 06:00 Completed XR chest 1V portable [id number] Routine Exams 02/18/25 06:00 Completed XR chest 1V portable [id number] Routine Exams 02/20/25 10:52 Completed XR chest 1V portable [id number] Routine Exams 02/20/25 13:00 Completed XR chest 1V portable [id number] Routine Exams 02/22/25 06:00 Completed XR chest 1V portable [id number] Stat Exams 02/17/25 10:58 Completed Laboratory Last Values WBC 10.25 10^3/uL (3.29-11.43) 02/21/25 03:17 RBC 4.70 10^6/uL (3.85-5.65) 02/21/25 03:17 Hgb 14.90 g/dL (11.27-16.99) 02/21/25 03:17 Hct 44.6 % (37-53) 02/21/25 03:17 MCV 94.9 fl (82-101) 02/21/25 03:17 MCH 31.7 pg (27-33) 02/21/25 03:17 MCHC 33.4 g/dL (30-55) 02/21/25 03:17 RDW 12.4 % (12.1-15.1) 02/21/25 03:17 Plt Count 268 10^3/cmm (157-399) 02/21/25 03:17 MPV 9.1 fL (7.4-10.4) 02/21/25 03:17 Neut % (Auto) 69.7 % 02/21/25 03:17 Lymph % (Auto) 18.7 % 02/21/25 03:17 [place] % (Auto) 8.2 % 02/21/25 03:17 Eos % (Auto) 0.0 % 02/21/25 03:17 Baso % (Auto) 0.7 % 02/21/25 03:17 Neut # (Auto) 7.14 10^3/uL (1.8-7.7) 02/21/25 03:17 Lymph # (Auto) 1.9 10^3/uL (0.8-4.8) 02/21/25 03:17 [place] # (Auto) 0.8 10^3/uL (0.2-0.9) 02/21/25 03:17 Eos # (Auto) 0.0 10^3/uL (0.0-0.8) 02/21/25 03:17 Baso # (Auto) 0.1 10^3/uL (0.0-0.1) 02/21/25 03:17 Nucleated RBC % (auto) 0 % 02/21/25 03:17 Nucleated RBCs # 0.0 /100WBC 02/21/25 03:17 Sodium 137 mmol/L (136-145) 02/21/25 03:17 Potassium 4.6 mmol/L (3.5-5.1) 02/21/25 03:17 Chloride 98 mmol/L (98-107) 02/21/25 03:17 Carbon Dioxide 29 mmol/L (22-29) 02/21/25 03:17 Anion Gap 14.6 (5-19) 02/21/25 03:17 BUN 19 mg/dL (6-20) 02/21/25 03:17 Creatinine 0.7 mg/dL (0.7-1.2) 02/21/25 03:17 GFR Calculation 118.4 mL/min (90-130) 02/21/25 03:17 Glucose 176 mg/dL (65-115) H 02/21/25 03:17 POC Glucose 189 mg/dL (70-110) H 02/22/25 11:30 Estimat Average Glucose 151 02/17/25 17:28 Hemoglobin A1c 6.9 % (4.0-6.0) H 02/17/25 17:28 Calculated Osmolality 291 mOsm/kg (285-295) 02/21/25 03:17 Calcium 9.3 mg/dL (8.5-10.5) 02/21/25 03:17 Magnesium 2.1 mg/dL (1.7-2.3) 02/18/25 03:41 Total Bilirubin 0.2 mg/dL (0.15-1.2) 02/18/25 03:41 AST 9 U/L (0-40) 02/18/25 03:41 ALT 13 U/L (0-41) 02/18/25 03:41 Alkaline Phosphatase 59 U/L (40-130) 02/18/25 03:41 Total Protein 6.6 g/dL (6.6-8.7) 02/18/25 03:41 Albumin 4.2 g/dL (3.5-5.2) 02/18/25 03:41 Globulin 2.4 g/dL (1.3-4.6) 02/18/25 03:41 Adenovirus (PCR) Not detected (NOT DETECT) 02/17/25 17:03 C. pneumoniae DNA (PCR) Not detected (NOT DETECT) 02/17/25 17:03 Coronavirus 229E (PCR) Not detected (NOT DETECT) 02/17/25 17:03 Human Metapneumovir PCR Not detected (NOT DETECT) 02/17/25 17:03 Influenza A (H1) PCR Not detected (NOT DETECT) 02/17/25 17:03 Influenza A (PCR) Negative (Negative) 02/17/25 11:15 Influ A (H1/09) PCR Not detected (NOT DETECT) 02/17/25 17:03 Influenza A (H3) PCR Not detected (NOT DETECT) 02/17/25 17:03 Influenza Type A (PCR) Not detected (NOT DETECT) 02/17/25 17:03 Influenza Type B (PCR) Not detected (NOT DETECT) 02/17/25 17:03 M. pneumoniae (PCR) Not detected (NOT DETECT) 02/17/25 17:03 Parainfluenza 1 (PCR) Not detected (NOT DETECT) 02/17/25 17:03 Parainfluenza 2 (PCR) Not detected (NOT DETECT) 02/17/25 17:03 Parainfluenza 3 (PCR) Not detected (NOT DETECT) 02/17/25 17:03 Parainfluenza 4 (PCR) Not detected (NOT DETECT) 02/17/25 17:03 RSV (PCR) Negative (Negative) 02/17/25 11:15 RSV Type A (PCR) Not detected (NOT DETECT) 02/17/25 17:03 RSV Type B (PCR) Not detected (NOT DETECT) 02/17/25 17:03 Entero/Rhino (PCR) Not detected (NOT DETECT) 02/17/25 17:03 SARS-CoV-2 (PCR) Not detected (NOT DETECT) 02/17/25 17:[address] 02/17/25 16:48 IMPRESSION: 1. No definite acute abscess. 2. Periapical lucency predominantly of the left 2nd mandibular molar on the left, nonspecific, could represent source of odontogenic infection. Chest X-Ray 02/22/25 06:00 Impression: 1. Clearing of left basilar pneumothorax. 2. Adjacent left subcutaneous emphysema in position of basilar left chest tube remain the same. Recent Clincial Data Last Vital Signs Temp 98.0 F 02/22/25 06:13 Pulse 98 02/22/25 12:00 Resp 15 02/22/25 12:00 BP 114/88 02/22/25 12:00 Pulse Ox 93 02/22/25 12:00 O2 Del Method Nasal Cannula 02/22/25 12:00 O2 Flow Rate 2 02/22/25 12:00 Vital Signs Temp Pulse Resp BP Pulse Ox O2 Del Method O2 Flow Rate 02/22/25 12:00 98 15 114/88 93 Nasal Cannula 2 02/22/25 11:30 98 15 114/88 93 Nasal Cannula 2 02/22/25 11:23 96 18 91 Nasal Cannula 2 02/22/25 11:00 105 H 14 125/92 90 Nasal Cannula 2 02/22/25 10:30 18 125/92 Nasal Cannula 2 02/22/25 10:00 105 H 14 129/97 92 Nasal Cannula 2 02/22/25 09:30 104 H 14 129/97 91 Nasal Cannula 2 02/22/25 09:00 110 H 18 140/101 92 Nasal Cannula 2 02/22/25 08:30 108 H 14 140/101 91 Nasal Cannula 2 02/22/25 08:10 96 18 92 Room Air 02/22/25 08:00 101 H 17 146/95 93 Nasal Cannula 2 02/22/25 07:30 99 13 146/95 92 Nasal Cannula 2 02/22/25 07:00 93 14 129/91 93 Nasal Cannula 2 02/22/25 06:13 98.0 F 02/22/25 04:00 97 14 128/93 94 Intake & Output/Weight 02/20/25 02/21/25 02/22/25 02/23/25 06:59 06:59 06:59 06:59 Intake Total 440 / 440 1280 / 1280 1400 / 1400 340 / 340 Output Total 1300 / 1300 500 / 500 1861 / 1861 800 / 800 Balance -860 / -860 780 / 780 -461 / -461 -460 / -460 Weight 110.847 kg 104 kg Vitals Last Vital Signs Temp 98.0 F 02/22/25 06:13 Pulse 98 02/22/25 12:00 Resp 15 02/22/25 12:00 BP 114/88 02/22/25 12:00 Pulse Ox 93 02/22/25 12:00 O2 Del Method Nasal Cannula 02/22/25 12:00 O2 Flow Rate 2 02/22/25 12:00 TS Medications Medications Acetaminophen (Acetaminophen 325 Mg Tablet) 650 mg PO Q6H PRN PRN Reason: Mild/Mod Pain Or Temp >/= 101 Albuterol Sulfate (Albuterol 2.5 Mg/3 Ml Neb) 2.5 mg INHALATION Q6H.RESP PRN PRN Reason: SHORTNESS OF BREATH Last Admin: 02/17/25 16:55 Dose: 2.5 mg Albuterol Sulfate (Albuterol 2.5 Mg/0.5 Ml Neb) 2.5 mg INHALATION QID.RESPIRATORY [facility] Last Admin: 02/22/25 11:22 Dose: 2.5 mg Aripiprazole (Aripiprazole 30 Mg Tablet) 30 mg PO DAILY [facility] Last Admin: 02/22/25 05:22 Dose: 30 mg Benzonatate (Benzonatate 100 Mg Capsule) 200 mg PO TID PRN PRN Reason: COUGH Benztropine Mesylate (Benztropine 1 Mg Tablet) 0.5 mg PO BEDTIME [facility] Last Admin: 02/21/25 21:43 Dose: 0.5 mg Bisacodyl (Bisacodyl 5 Mg Tablet) 10 mg PO DAILY PRN; Protocol PRN Reason: Constipation (see protocol) Enoxaparin Sodium (Enoxaparin 40 Mg/0.4 Ml Syringe) 40 mg SUBCUT Q24H [facility] On Hold: 02/20/25 07:56 Last Admin: 02/19/25 17:08 Dose: 40 mg Fentanyl (Fentanyl 50 Mcg/Ml Inj 2ml) 50 mcg IVP ONCE PRN PRN Reason: PROCEDURE Gabapentin (Gabapentin 300 Mg Capsule) 300 mg PO DAILY [facility] Last Admin: 02/22/25 05:22 Dose: 300 mg Glucagon (Glucagon 1 Mg/Ml Kit 1 Ml) 1 mg IM ONCE PRN; Protocol PRN Reason: Adult Acute Hypoglycemia Nursing Prot. Guaifenesin (Guaifenesin 600 Mg Tablet) 1,200 mg PO BID [facility] Last Admin: 02/22/25 05:21 Dose: 1,200 mg Dextrose (D5w) 500 mls @ 0 mls/hr IV ONCE PRN; Protocol PRN Reason: Adult Acute Hypoglycemia Prot Dextrose (D10w) 125 mls @ 750 mls/hr IV PRN PRN; Protocol PRN Reason: Adult Acute Hypoglycemia Nursing Protocol Dextrose (D10w) 250 mls @ 1,000 mls/hr IV PRN PRN; Protocol PRN Reason: Adult Acute Hypoglycemia Nursing Protocol Ampicillin Sodium/Sulbactam (Sodium 3 gm/ Sodium Chloride) 50 mls @ 100 mls/hr IV Q6H [facility]; Protocol Last Infusion: 02/22/25 15:41 Dose: Infused Insulin Human Lispro (Insulin Lispro 100 Unit/1 Ml) 0 unit SUBCUT WM&BEDTIME SC H; Protocol Last Admin: 02/22/25 12:07 Dose: 4 unit Lorazepam (Lorazepam 0.5 Mg Tablet) 0.5 mg PO Q6H PRN PRN Reason: ANXIETY Last Admin: 02/17/25 23:34 Dose: 0.5 mg Midazolam HCl (Midazolam 1 Mg/Ml Inj 2 Ml) 1 - 2 mg IVP ONCE PRN PRN Reason: PROCEDURE Morphine Sulfate (Morphine 4 Mg/Ml Sdv 1 Ml) 4 mg IVP Q4H PRN PRN Reason: SEVERE PAIN Last Admin: 02/20/25 23:36 Dose: 4 mg Nicotine (Nicotine 21 Mg Patch) 1 patch TRANSDERMA DAILY [facility] Last Admin: 02/22/25 05:22 Dose: 1 patch Ondansetron HCl (Ondansetron 2 Mg/Ml Sdv 2 Ml) 4 mg IVP Q8H PRN PRN Reason: vomiting, or N/V if npo Oxycodone HCl (Oxycodone 5 Mg Ir Tab/Cap) 5 mg PO Q4H PRN PRN Reason: MODERATE PAIN Last Admin: 02/22/25 02:43 Dose: 5 mg Oxycodone HCl (Oxycodone 5 Mg Ir Tab/Cap) 10 mg PO Q4H PRN PRN Reason: SEVERE PAIN Last Admin: 02/21/25 12:24 Dose: 10 mg Pantoprazole Sodium (Pantoprazole Dr 40 Mg Tablet) 40 mg PO DAILY [facility] Last Admin: 02/22/25 05:22 Dose: 40 mg Venlafaxine HCl (Venlafaxine Er (24hr) 75 Mg Capsule) 225 mg PO QAM [facility] Last Admin: 02/22/25 05:21 Dose: 225 mg Discontinued Medications Budesonide (Budesonide 0.5 Mg/2 Ml Neb) 0.5 mg INHALATION BID.RESPIRATORY [facility] Last Admin: 02/20/25 08:17 Dose: 0.5 mg Dexamethasone (Dexamethasone 10 Mg/Ml Inj) 10 mg IM ONCE ONE Stop: 02/17/25 11:33 Last Admin: 02/17/25 11:45 Dose: 10 mg Dexamethasone (Dexamethasone 10 Mg/Ml Inj) 10 mg IVP ONCE ONE Stop: 02/17/25 13:56 Last Admin: 02/17/25 14:39 Dose: Not Given Dexamethasone (Dexamethasone 10 Mg/Ml Inj) 10 mg IVP Q24H [facility] Last Admin: 02/17/25 17:04 Dose: 10 mg Fentanyl (Fentanyl 50 Mcg/Ml Inj 2ml) 50 mcg IVP ONCE ONE Stop: 02/20/25 10:47 Last Admin: 02/20/25 11:22 Dose: 50 mcg Doxycycline Hyclate 100 mg/ (Sodium Chloride) 100 mls @ 100 mls/hr IV ONCE ONE; Protocol Stop: 02/17/25 14:54 Last Infusion: 02/17/25 16:09 Dose: Infused Sodium Chloride (Sodium Chloride 0.9%) 1,000 mls @ 100 mls/hr IV .Q10H [facility] Last Infusion: 02/19/25 05:26 Dose: Infused Iohexol (Iohexol 350 Mg/Ml 500 Ml Btl (Per Ml)) 0 ml IV ONCE ONE Stop: 02/17/25 21:50 Last Admin: 02/17/25 21:49 Dose: 100 ml Ketorolac Tromethamine (Ketorolac 60 Mg/2 Ml Inj) 60 mg IM ONCE ONE Stop: 02/17/25 11:33 Last Admin: 02/17/25 11:45 Dose: 60 mg Lisinopril (Lisinopril 20 Mg Tablet) 20 mg PO DAILY [facility] Last Admin: 02/20/25 04:39 Dose: 20 mg Midazolam HCl (Midazolam 1 Mg/Ml Inj 5 Ml) Confirm Administered Dose 5 mg .ROUTE .STK-MED ONE Stop: 02/20/25 10:33 Midazolam HCl (Midazolam 1 Mg/Ml Inj 2 Ml) 2 mg IVP ONCE ONE Stop: 02/20/25 10:48 Last Admin: 02/20/25 11:22 Dose: Not Given Midazolam HCl (Midazolam 1 Mg/Ml Inj 2 Ml) 5 mg IVP ONCE ONE Stop: 02/20/25 11:20 Last Admin: 02/20/25 11:29 Dose: Not Given Midazolam HCl (Midazolam 1 Mg/Ml Inj 5 Ml) 5 mg IVP ONCE ONE Stop: 02/20/25 11:31 Last Admin: 02/20/25 11:28 Dose: 5 mg Morphine Sulfate (Morphine 4 Mg/Ml Sdv 1 Ml) 2 mg IVP Q4H PRN PRN Reason: SEVERE PAIN Last Admin: 02/20/25 18:40 Dose: 2 mg Allergies adhesive tape Allergy (Verified 02/17/25 11:00) ALGY-Blister Home Medications lisinopril 20 mg tablet 20 mg PO DAILY 30 days #30 tabs 06/29/24 [Rx Confirmed 02/17/25] albuterol sulfate 90 mcg/actuation aerosol inhaler (Ventolin HFA) 2 puff inhalation QID PRN Shortness Of Breath Or Wheezing 07/08/24 [History Confirmed 02/17/25] budesonide-formoterol HFA 160 mcg-4.5 mcg/actuation aerosol inhaler (Symbicort) 2 inh inhalation DAILY 08/06/24 [History Confirmed 02/17/25] meloxicam 15 mg tablet 15 mg PO DAILY 08/06/24 [History Confirmed 02/17/25] ondansetron HCl 8 mg tablet 8 mg PO Q8H PRN Nausea 08/06/24 [History Confirmed 02/17/25] aripiprazole 30 mg tablet (Abilify) 30 mg PO DAILY #30 tabs 01/10/25 [Rx Confirmed 02/17/25] benztropine 0.5 mg tablet 0.5 mg PO BEDTIME #30 tabs 01/10/25 [Rx Confirmed 02/17/25] gabapentin 300 mg capsule 300 mg PO DAILY #30 caps 01/10/25 [Rx Confirmed 02/17/25] venlafaxine 75 mg capsule,extended release 24 hr 225 mg (3 x 75 mg) PO QAM 30 days #90 caps 01/23/25 [Rx Confirmed 02/17/25] amoxicillin 875 mg-potassium clavulanate 125 mg tablet 1 tab PO BID x7d 02/17/25 [History Confirmed 02/17/25] nicotine 14 mg/24 hr daily transdermal patch See Rx Instructions .Route .COMPLEX 02/17/25 [History Confirmed 02/17/25] pantoprazole 40 mg tablet,delayed release 40 mg PO DAILY 02/17/25 [History Confirmed 02/17/25] prednisone 20 mg tablet 20 mg PO DAILY x5days 02/17/25 [History Confirmed 02/17/25] Discharge Plan Discharge Patient Disposition: Home Condition: Stable Prescriptions: Discontinued lisinopril 20 mg Tablet 20 mg PO DAILY 30 Days Qty: 30 1RF No Action aripiprazole [Abilify] 30 mg tablet 30 mg PO DAILY Qty: 30 3RF gabapentin 300 mg capsule 300 mg PO DAILY Qty: 30 3RF benztropine 0.5 mg tablet 0.5 mg PO BEDTIME Qty: 30 3RF venlafaxine 75 mg capsule,extended release 24hr 225 mg PO QAM 30 Days Qty: 90 3RF albuterol sulfate [Ventolin HFA] 90 mcg/actuation HFA aerosol inhaler 2 puff INHALATION QID PRN (Reason: Shortness Of Breath Or Wheezing) ondansetron HCl 8 mg tablet 8 mg PO Q8H PRN (Reason: Nausea) meloxicam 15 mg tablet 15 mg PO DAILY budesonide-formoterol [Symbicort] 160-4.5 mcg/actuation HFA aerosol inhaler 2 inh INHALATION DAILY nicotine 14 mg/24 hr patch 24 hour See Rx Instructions .ROUTE .COMPLEX Rx Instructions: APPLY 1 PATCH TOPICALLY TO SKIN EVERY 24 HOURS DIRECTED FOR 28 DAYS. prednisone 20 mg tablet 20 mg PO DAILY pantoprazole 40 mg tablet,delayed release (DR/EC) 40 mg PO DAILY amoxicillin-pot clavulanate 875-125 mg tablet 1 tab PO BID Referrals: Jose G Winn MD [Physician, General Surgery] - 02/26/25 8:00 am Shalom Moffett MD [Primary Care Provider, Family Practice] Patient Instructions: Opioid Safety, Patient Portal & [facility] Instructions Transfer Attestations Time Spent in Transfer Care: greater than 30 min Quality Metrics Clinical Quality Measures [ No reported AMI, CVA or VTE this stay] Coding Level of Care Code 97953 Total time (in minutes) for Discharge: 50 Diagnoses Pneumothorax on left J93.9
--- NOTE | 2025-02-22 17:37 | P.PN_ITS ---
Subjective 2 Subjective: Alden Velez Jr is a 54 year old male with pmhx of smoking cigarettes gets a/w a left spontanous pneumothorax. Symptoms started 3 days ago with cough and shortness of breath. CXR in ED showed ptx. confirmed on CT. He was given dexamethasone and pain meds CXR today shows persistent ptx and I was consulted for further management 02/20/2025 Patient had expanding pneumothorax on the left. Coughed a little bit overnight but not excessively. Had on nonrebreather all night as instructed. 02/21/25 Less shortness of breath and chest pain today chest tube to suction. he has been on lisinopril and has been having cough due to that. 02/22/2025 Patient sitting up in chair eating Denies any increased cough. On 2 L nasal cannula Vitals/I&O/Wt Last Vital Signs Temp 98.0 F 02/22/25 06:13 Pulse 105 H 02/22/25 16:22 Resp 18 02/22/25 16:22 BP 114/88 02/22/25 12:00 Pulse Ox 95 02/22/25 16:22 O2 Del Method Nasal Cannula 02/22/25 16:22 O2 Flow Rate 2 02/22/25 16:22 02/22/25 02/22/25 02/22/25 06:59 14:59 22:59 Intake Total 580 / 1400 290 / 290 50 / 340 Output Total 750 / 1861 500 / 500 300 / 800 Balance -170 / -461 -210 / -210 -250 / -460 Weight last 48 hrs Weight 229 lb 4.492 oz Physical Exam 2 Narrative: General: alert, NAD HEENT: EOMI Pulmonary: Diminished breath sounds bilaterally. chest tube on the left hooked to pleurovac and on suction Cardiovascular: rrr, nl s1s2, Abdomen: soft, nt, nd, no r/g, Extremities: no edema Neurologic: grossly intact Data 02/21/25 03:17 02/21/25 03:17 A&P Assessment and plan 1. Pneumothorax on left: Plan: # left pneumothorax- secondary spontanous most likely due to copd I reviewed the CT chest from today showing less pneumothorax but persistent. May have a trapped lung. Discussed case with Dr. Strong. He will need a higher level of transfer for thoracic surgery evalutation Pleural vac continues to have a persistent air leak suspicious of bronchopleural fistula # copd # smoker # cough Most likely from lisinopril, stopped. Do not recommend ARBs either Use prn cough suppressants Medical decision making level-low low MDM includes number and complexity of problems actively addressed during encounter, amount and/or complexity of data reviewed/ordered [ previous or external records, resulted lab(s)/test(s), ordered lab(s)/test(s), independent historian, independent test interpretation and other healthcare professional discussion] and described risk of complication, morbidity or mortality of management as documented This documentation was created by [employer] engineer steam software (known for inherent engineer steam error). Every effort was made to assure accuracy of engineer steam. Any obvious errors or omissions should be clarified with the author of the document Patient seen in person today PDMP PDMP Reviewed: Not Reviewed Attestations 2 Medical Necessity Statement*: Patient being transferred to [facility] Coding Level of Care Code 82875 Diagnoses Pneumothorax on left J93.9
[2025-02-22] MEDS: oxyCODONE 5 mg IR Tab/Cap 10 MG PO (19:00)
== END 2025-02-22 22:10 | disposition short-term general hospital (02) | DRG 140 ==
LOC: ER 14:04 → MEDSURG 14:36 → ICU 02-20 10:58
PROVIDERS: Admitting Provider Internal Medicine; Emergency Provider Emergency Medicine; PCP Family Medicine; Visit Provider Internal Medicine
DX: J44.9 Chronic obstructive pulmonary disease, unspecified (principal); J93.12 Secondary spontaneous pneumothorax; K04.7 Periapical abscess without sinus; E11.9 Type 2 diabetes mellitus without complications; J93.82 Other air leak; F17.210 Nicotine dependence, cigarettes, uncomplicated; I10 Essential (primary) hypertension; K21.9 Gastro-esophageal reflux disease without esophagitis; F32.A Depression, unspecified; F41.9 Anxiety disorder, unspecified; M17.0 Bilateral primary osteoarthritis of knee
CPT/HCPCS: 36415; 36416; 70487; 71045; 71250; 80048; 80053; 82962; 83036; 83735; 85025; 87040; 87486; 87581; 87633; 87637; 94640; 94664; 96365; 96372; 99285; G0378; J0295; J1100; J1650; J1815; J1885; J2250; J2270; J3010; J3490; J7030; J7611; J7613; J7626; J9999; Q3014